=== PATIENT | female | born 1970 | race Caucasian/White ===

== ENCOUNTER 2019-02-27 18:06 | Emergency (ER) | payer BC ==
--- OUTSIDE RECORDS SUMMARY | 2019-02-27 18:08 | XMS REPORT ---
:1970 [facility] Address [address] [place] [address] Dr. [address]o [address] [place] [address] Care Team Providers Name Role Phone Unavailable Unavailable Unavailable Problems This patient has no known problems. Allergies, Adverse Reactions, Alerts This patient has no known allergies or adverse reactions. Medications This patient has no known medications. Results Test Description Test Time Test Comments Text Results Atomic Results Result Comments SCR MAMM BILATERAL SUGEY 2019-01-02 16:28:53 - SCR MAMM BILATERAL SUGEY CAD CAD DIGITAL DIGITALBILATERAL DIGITAL SCREENING MAMMOGRAM 3D/2D WITH CAD: 12/22/2018CLINICAL: Asymptomatic. Digital breast tomosynthesis was performed in addition to routine CC and MLO views. Current mammographic images were evaluated by either a [employer] M-Vu or a [employer] ImageChecker CAD (computer aided detection system). No prior exams were available for comparison. There are scattered fibroglandular tissues in both breasts. No suspicious mass, architectural distortion, malignant type calcification, or lymph node abnormality detected. IMPRESSION: NEGATIVEThere is no mammographic evidence of malignancy. Resume annual screening mammography in one year. Lynette ramos/penrad:01/02/2019 16:28:53 Entry: - 01/03/2019 14:15:14Imaging Technologist: Kayla Calderon MM, [facility] Mammographyletter sent: BIRADS 1-2 Normal Mammogram BI-RADS: 1 Negative
--- NOTE | 2019-02-27 19:57 | RAD REPORT ---
EXAM DESCRIPTION: CT - Head Brain Wo Cont - 02/27/2019 7:51 pm CLINICAL HISTORY: head injury Trauma, fall, head injury COMPARISON: Head Brain Wo Cont dated 07/18/2016; Head Brain Wo Cont dated 06/29/2016 TECHNIQUE: All CT scans are performed using dose optimization technique as appropriate and may inclu de automated exposure control or mA/KV adjustment according to patient size. FINDINGS: No intracranial hemorrhage, hydrocephalus or extra-axial fluid collection.No areas of brai n edema or evidence of midline shift. The paranasal sinuses and mastoids are clear. The calvarium is intact. IMPRESSION: No acute intracranial abnormality.
[2019-02-27 20:32] LABS: Absolute Lymphocytes (CBC) 1.7 K/uL (0.7-4.9); Absolute Monocytes 0.5 K/uL (0.1-1.3); Absolute Neutrophil 4.6 K/uL (1.8-8.0); Basophils % 0.5 % (0-1.3); Hematocrit 42.9 % (36.0-45.0); Lymphocytes % 24.6 % (15.3-44.8); MPV 9.7 fL (7.6-11.3); Monocytes % 7.1 % (3.3-12.3); RBC Red Blood Cell Count 5.46 M/uL (3.86-4.86)
[2019-02-27 20:47] LABS: ALT/SGPT 41 U/L (12-78); AST/SGOT 22 U/L (15-37); Alkaline Phosphatase 109 U/L (45-117); BUN Blood Urea Nitrogen 8 mg/dL (7-18); Bicarbonate 27 mmol/L (21-32); Bilirubin Direct < 0.1 mg/dL (0-0.2); Bilirubin Total 0.3 mg/dL (0.2-1.0); CKMB Creatine Kinase MB < 1.0 ng/mL (0.3-3.6); Creatine Phosphokinase 117 U/L (26-192); Glucose Level 88 mg/dL (74-106); Lipase 138 U/L (73-393); Magnesium 2.1 mg/dL (1.8-2.4); Protein, Total 8.4 g/dL (6.4-8.2); Sodium Level 139 mmol/L (136-145); Troponin (Emerg Dept Use Only) < 0.02 ng/mL (0.0-0.045)
[2019-02-27 21:01] LABS: Urine Blood NEGATIVE (NEG); Urine Glucose NEGATIVE (NEG); Urine Protein NEGATIVE (NEG); Urine pH 5.5 (5.0-7.0)
[2019-02-27] MEDS ORDERED: KETOROLAC 30 MG/ML INJ ONE (21:03)
[2019-02-27 21:05] LABS: Protime INR 0.93
--- NOTE | 2019-02-27 22:43 | ER ---
Nurse's Notes [facility] Name: Tabitha Gutierres Age: 48 yrs Sex: Female : 1970 Arrival Date: 02/27/2019 Time: 18:09 Bed 17 Private MD: Radha Collins H Diagnosis: Vasovagal syncope Presentation: 02/27 18:16 Presenting complaint: Patient states: fall about an hour ago onto carpet and tile, sv unsure of why she fell. c/o right arm/leg pain, right fingers tingling, chest pain after fall happened. Care prior to arrival: None. Mechanism of Injury: Fall from standing position. Trauma event details: Injury occurred in the [facility], Injury occurred: at home. Injury occurred: February 27, 2019 Injury occurred at: 17:45. 18:16 Acuity: ESTELLA 3 sv 18:16 Method Of Arrival: Ambulatory sv 19:00 Transition of care: patient was not received from another setting of care. Onset of jb4 symptoms was February 27, 2019. Risk Assessment: Do you want to hurt yourself or someone else?. Initial Sepsis Screen: Does the patient meet any 2 criteria? No. Patient's initial sepsis screen is negative. Does the patient have a suspected source of infection? No. Patient's initial sepsis screen is negative. Trauma Activation: Not Applicable Physician: ED Physician; Name: ; Notified At: ; Arrived At: Physician: General Surgeon; Name: ; Notified At: ; Arrived At: Physician: Radiology; Name: ; Notified At: ; Arrived At: Physician: Respiratory; Name: ; Notified At: ; Arrived At: Physician: Lab; Name: ; Notified At: ; Arrived At: Historical: - Allergies: 18:18 PENICILLINS; sv - PMHx: 18:18 Multiple Sclerosis; sv - PSHx: 18:18 Tubal ligation; tubal reversal; sv - Ebola Screening: : No symptoms or risks identified at this time. Screenin:00 Abuse screen: Denies threats or abuse. Nutritional screening: No deficits noted. jb4 Tuberculosis screening: No symptoms or risk factors identified. Fall Risk None identified. Primary Survey: 19:19 NO uncontrolled hemorrhage observed. A: The patient is alert. Airway: patent, No ph supplemental oxygen in use on arrival. Oral cavity: clear, Trachea midline. Breathing/Chest: Respiratory pattern: regular, Respiratory effort: spontaneous, unlabored. Circulation: Skin color: pink, Skin temperature: warm, dry. Disability Alert. Exposure/Environment: All clothing and personal items were removed. Forensic evidence collection is not deemed to be indicated at this time. Items placed in patient belonging bag. There is no evidence of uncontrolled external bleeding. 20:00 Reassessment Airway Airway Patent Breathing/Chest Respiratory pattern Regular jb4 Respiratory effort Spontaneous Unlabored Circulation Heart rhythm Sinus rhythm. Secondary Survey: 19:21 HEENT: No deficits noted. Musculoskeletal: Circulation, motion, and sensation intact. ph Range of motion: intact in all extremities, Reports pain in R shoulder, R arm, R flank amd R inner thigh. Assessment: 19:16 General: Appears in no apparent distress. uncomfortable, obese, well groomed, Behavior ph is calm, cooperative, appropriate for age. Pain: Complains of pain in right shoulder, right arm, right inner thigh, and right flank. Neuro: Level of Consciousness is awake, alert, obeys commands, Oriented to person, place, time, situation, Denies dizziness, headache frontal area. Cardiovascular: Capillary refill < 3 seconds in bilateral fingers Patient's skin is warm and dry. Respiratory: Airway is patent Respiratory effort is even, unlabored, Respiratory pattern is regular, symmetrical, Denies shortness of breath. GI: Patient currently denies abdominal pain, nausea, vomiting. Derm: Skin is intact, is healthy with good turgor, Skin is pink, warm \T\ dry. Musculoskeletal: Circulation, motion, and sensation intact. Range of motion: intact in all extremities. 20:00 Reassessment: Patient appears in no apparent distress at this time. Patient and/or jb4 family updated on plan of care and expected duration. Pain level reassessed. Patient is alert, oriented x 3, equal unlabored respirations, skin warm/dry/pink. 21:00 Reassessment: Patient appears in no apparent distress at this time. Patient and/or jb4 family updated on plan of care and expected duration. Pain level reassessed. Patient is alert, oriented x 3, equal unlabored respirations, skin warm/dry/pink. 22:00 Reassessment: Patient appears in no apparent distress at this time. Patient and/or jb4 family updated on plan of care and expected duration. Pain level reassessed. Patient is alert, oriented x 3, equal unlabored respirations, skin warm/dry/pink. 23:00 Reassessment: Patient appears in no apparent distress at this time. Patient and/or jb4 family updated on plan of care and expected duration. Pain level reassessed. Patient is alert, oriented x 3, equal unlabored respirations, skin warm/dry/pink. Vital Signs: 18:18 BP 155 / 89; Pulse 76; Resp 18; Temp 98; Pulse Ox 100% ; Weight 119.75 kg; Height 5 ft. sv 1 in. (154.94 cm); Pain 7/10; 20:28 BP 116 / 87; Pulse 74; Resp 18; Pulse Ox 96% on R/A; mw2 21:00 BP 147 / 73; Pulse 74; Resp 16; Pulse Ox 100% on R/A; jb4 22:10 BP 154 / 95; Pulse 67; Resp 18; Pulse Ox 100% on R/A; jb4 23:00 BP 134 / 84; Pulse 66; Resp 16; Pulse Ox 100% on R/A; jb4 18:18 Body Mass Index 49.88 (119.75 kg, 154.94 cm) sv Filion Coma Score: 19:22 Eye Response: spontaneous(4). Verbal Response: oriented(5). Motor Response: obeys ph commands(6). Total: 15. 20:20 Eye Response: spontaneous(4). Verbal Response: oriented(5). Motor Response: obeys jb4 commands(6). Total: 15. 21:00 Eye Response: spontaneous(4). Verbal Response: oriented(5). Motor Response: obeys jb4 commands(6). Total: 15. 22:10 Eye Response: spontaneous(4). Verbal Response: oriented(5). Motor Response: obeys jb4 commands(6). Total: 15. 23:00 Eye Response: spontaneous(4). Verbal Response: oriented(5). Motor Response: obeys jb4 commands(6). Total: 15. Trauma Score (Adult): 19:22 Eye Response: spontaneous(1); Verbal Response: oriented(1); Motor Response: obeys ph commands(2); Systolic BP: > 89 mm Hg(4); Respiratory Rate: 10 to 29 per min(4); Rhea Score: 15; Trauma Score: 12 20:20 Eye Response: spontaneous(1); Verbal Response: oriented(1); Motor Response: obeys jb4 commands(2); Systolic BP: > 89 mm Hg(4); Respiratory Rate: 10 to 29 per min(4); Filion Score: 15; Trauma Score: 12 21:00 Eye Response: spontaneous(1); Verbal Response: oriented(1); Motor Response: obeys jb4 commands(2); Systolic BP: > 89 mm Hg(4); Respiratory Rate: 10 to 29 per min(4); Filion Score: 15; Trauma Score: 12 22:10 Eye Response: spontaneous(1); Verbal Response: oriented(1); Motor Response: obeys jb4 commands(2); Systolic BP: > 89 mm Hg(4); Respiratory Rate: 10 to 29 per min(4); Filion Score: 15; Trauma Score: 12 23:00 Eye Response: spontaneous(1); Verbal Response: oriented(1); Motor Response: obeys jb4 commands(2); Systolic BP: > 89 mm Hg(4); Respiratory Rate: 10 to 29 per min(4); Filion Score: 15; Trauma Score: 12 ED Course: 18:09 Patient arrived in ED. mr 18:09 Radha Collins DO is Private Physician. mr 18:17 Triage completed. sv 18:18 Arm band placed on. sv 18:25 Cris Butterfield, RN is Primary Nurse. ph 19:00 Patient has correct armband on for positive identification. Bed in low position. Call jb4 light in reach. Side rails up X 1. lunchroom monitor on. Pulse ox on. NIBP on. 19:00 Patient maintains SpO2 saturation greater than 95% on room air. jb4 19:20 Luca Breen MD is Attending Physician. tw4 19:[address] via wheelchair. nj 19:50 CT completed. Patient tolerated procedure well. Patient moved back from CT. nj 19:51 CT Head Brain wo Cont In Process Unspecified. EDMS 20:06 Inserted saline lock: 22 gauge in left antecubital area, using aseptic technique. Blood mw2 collected. 22:40 Radha Collins DO is Referral Physician. tw4 23:15 No provider procedures requiring assistance completed. IV discontinued, intact, jb4 bleeding controlled. Administered Medications: 21:14 Drug: TORadol 30 mg Route: IVP; Site: left antecubital; jb4 23:17 Follow up: Response: No adverse reaction; Pain is decreased jb4 Intake: 19:22 PO: 0ml; Total: 0ml. ph Output: 19:22 Urine: 250ml (Voided); Total: 250ml. ph Outcome: 22:42 Discharge ordered by MD. tw4 23:15 Discharged to home ambulatory, with family. jb4 23:15 Condition: stable 23:15 Discharge instructions given to patient, family, Instructed on discharge instructions, follow up and referral plans. Demonstrated understanding of instructions, follow-up care. 23:16 Patient's length of stay in the Emergency Department was greater than 2 hours. Pt jb4 discharged homePatient's length of stay extended due to 23:20 Patient left the ED. jb4 Signatures: Dispatcher [employer] EDMS Dena Boyle RN RN sv Rivera, Cris Tate RN RN ph Bryson, James, RN RN jb4 Jordan, Nathan nj Wadley, Terrence, MD MD tw4 Betito Yu mw2 Corrections: (The following items were deleted from the chart) 18:19 18:16 Presenting complaint: Patient states: fall about an hour ago onto carpet and sv tile, unsure of why she fell. c/o right arm/leg pain, chest pain after fall happened. sv 23:18 22:31 Reassessment: jbAlvin jb4
--- NOTE | 2019-02-27 22:44 | EDPHYS ---
Physician Documentation [facility] Name: Tabitha Gutierres Age: 48 yrs Sex: Female : 1970 Arrival Date: 02/27/2019 Time: 18:09 Bed 17 Private MD: Radha Collins H ED Physician Luca Breen HPI: 02/27 19:35 This 48 yrs old Female presents to ER via Ambulatory with complaints of Fall tw4 Injury, Headache. 20:14 Details of fall: The patient fell from an upright position, while standing. Onset: The tw4 symptoms/episode began/occurred today. Associated injuries: The patient sustained no obvious injury. The patient has experienced syncope. Duration: This was a single episode. Context: occurred. Associated injury: The patient did not suffer any apparent associated injury. Associated signs and symptoms: The patient has no apparent associated signs or symptoms. Historical: - Allergies: 18:18 PENICILLINS; sv - PMHx: 18:18 Multiple Sclerosis; sv - PSHx: 18:18 Tubal ligation; tubal reversal; sv - Ebola Screening: : No symptoms or risks identified at this time. ROS: 20:14 Constitutional: Negative for fever, chills, and weight loss, Eyes: Negative for injury, tw4 pain, redness, and discharge, ENT: Negative for injury, pain, and discharge, Cardiovascular: Negative for chest pain, palpitations, and edema, Respiratory: Negative for shortness of breath, cough, wheezing, and pleuritic chest pain, Abdomen/GI: Negative for abdominal pain, nausea, vomiting, diarrhea, and constipation, Back: Negative for injury and pain, MS/Extremity: Negative for injury and deformity. Exam: 22:40 Constitutional: This is a well developed, well nourished patient who is awake, alert, tw4 and in no acute distress. Head/Face: Normocephalic, atraumatic. Chest/axilla: Normal chest wall appearance and motion. Nontender with no deformity. No lesions are appreciated. Cardiovascular: Regular rate and rhythm with a normal S1 and S2. No gallops, murmurs, or rubs. Normal PMI, no JVD. No pulse deficits. Respiratory: Lungs have equal breath sounds bilaterally, clear to auscultation and percussion. No rales, rhonchi or wheezes noted. No increased work of breathing, no retractions or nasal flaring. Abdomen/GI: Soft, non-tender, with normal bowel sounds. No distension or tympany. No guarding or rebound. No evidence of tenderness throughout. Back: No spinal tenderness. No costovertebral tenderness. Full range of motion. MS/ Extremity: Pulses equal, no cyanosis. Neurovascular intact. Full, normal range of motion. Neuro: Awake and alert, GCS 15, oriented to person, place, time, and situation. Cranial nerves II-XII grossly intact. Motor strength 5/5 in all extremities. Sensory grossly intact. Cerebellar exam normal. Normal gait. Vital Signs: 18:18 BP 155 / 89; Pulse 76; Resp 18; Temp 98; Pulse Ox 100% ; Weight 119.75 kg; Height 5 ft. sv 1 in. (154.94 cm); Pain 7/10; 20:28 BP 116 / 87; Pulse 74; Resp 18; Pulse Ox 96% on R/A; mw2 21:00 BP 147 / 73; Pulse 74; Resp 16; Pulse Ox 100% on R/A; jb4 22:10 BP 154 / 95; Pulse 67; Resp 18; Pulse Ox 100% on R/A; jb4 23:00 BP 134 / 84; Pulse 66; Resp 16; Pulse Ox 100% on R/A; jb4 18:18 Body Mass Index 49.88 (119.75 kg, 154.94 cm) sv Rhea Coma Score: 19:22 Eye Response: spontaneous(4). Verbal Response: oriented(5). Motor Response: obeys ph commands(6). Total: 15. 20:20 Eye Response: spontaneous(4). Verbal Response: oriented(5). Motor Response: obeys jb4 commands(6). Total: 15. 21:00 Eye Response: spontaneous(4). Verbal Response: oriented(5). Motor Response: obeys jb4 commands(6). Total: 15. 22:10 Eye Response: spontaneous(4). Verbal Response: oriented(5). Motor Response: obeys jb4 commands(6). Total: 15. 23:00 Eye Response: spontaneous(4). Verbal Response: oriented(5). Motor Response: obeys jb4 commands(6). Total: 15. Trauma Score (Adult): 19:22 Eye Response: spontaneous(1); Verbal Response: oriented(1); Motor Response: obeys ph commands(2); Systolic BP: > 89 mm Hg(4); Respiratory Rate: 10 to 29 per min(4); [place] Score: 15; Trauma Score: 12 20:20 Eye Response: spontaneous(1); Verbal Response: oriented(1); Motor Response: obeys jb4 commands(2); Systolic BP: > 89 mm Hg(4); Respiratory Rate: 10 to 29 per min(4); [place] Score: 15; Trauma Score: 12 21:00 Eye Response: spontaneous(1); Verbal Response: oriented(1); Motor Response: obeys jb4 commands(2); Systolic BP: > 89 mm Hg(4); Respiratory Rate: 10 to 29 per min(4); Rhea Score: 15; Trauma Score: 12 22:10 Eye Response: spontaneous(1); Verbal Response: oriented(1); Motor Response: obeys jb4 commands(2); Systolic BP: > 89 mm Hg(4); Respiratory Rate: 10 to 29 per min(4); Rhea Score: 15; Trauma Score: 12 23:00 Eye Response: spontaneous(1); Verbal Response: oriented(1); Motor Response: obeys jb4 commands(2); Systolic BP: > 89 mm Hg(4); Respiratory Rate: 10 to 29 per min(4); Rhea Score: 15; Trauma Score: 12 MDM: 19:21 Patient medically screened. tw4 22:39 Differential diagnosis: closed head injury, contusion, emotional response, idiopathic tw4 syncope, vasovagal episode. Data reviewed: vital signs, nurses notes. Data interpreted: cold header:. Test interpretation: by ED physician or midlevel provider: ECG. Counseling: I had a detailed discussion with the patient and/or guardian regarding: the historical points, exam findings, and any diagnostic results supporting the discharge/admit diagnosis. Special discussion: I discussed with the patient/guardian in detail that at this point there is no indication for admission to the hospital. It is understood, however, that if the symptoms persist or worsen the patient needs to return immediately for re-evaluation. 02/27 19:34 Order name: Basic Metabolic Panel; Complete Time: 21:41 tw4 02/27 19:34 Order name: CBC with Diff; Complete Time: 21:41 02/27 21:41 Interpretation: Normal except: MCH 25.7; RBC 5.46; MCV 78.5. 02/27 19:34 Order name: Ckmb; Complete Time: 21:41 02/27 21:41 Interpretation: Within normal limits: CKMB < 1.0. 02/27 19:34 Order name: CPK 02/27 19:34 Order name: Hepatic Function; Complete [facility]: 21:41 [facility] 02/[facility] 21:41 Interpretation: Normal except: TP 8.4; GLOB 4.4; A/G 0.9. 02/27 19:34 Order name: Lipase 02/27 19:27 Order name: CT Head Brain wo Cont; Complete Time: 21:41 02/27 19:34 Order name: Magnesium [facility] 02/27 19:34 Order name: Protime (+inr) 02/27 19:34 Order name: Ptt, Activated 02/27 19:34 Order name: Troponin (emerg Dept Use Only) [facility] 02/27 19:34 Order name: EKG; Complete Time: 19:34 02/27 20:39 Order name: Urine Dipstick--Ancillary (enter results) la 02/27 19:34 Order name: Cardiac monitoring; Complete Time: 20:27 02/27 19:34 Order name: EKG - Nurse/Tech; Complete Time: 20:27 [facility] 02/27 19:34 Order name: IV Saline Lock; Complete Time: 20:28 02/27 19:34 Order name: Labs collected and sent; Complete Time: 20:28 02/27 19:34 Order name: NPO; Complete Time: 20:28 02/27 19:34 Order name: O2 Per Protocol; Complete Time: 20:28 02/27 19:34 Order name: O2 Sat Monitoring; Complete Time: 20:28 02/27 19:34 Order name: Urine Dipstick-Ancillary (obtain specimen); Complete Time: 20:28 tw4 Administered Medications: 21:14 Drug: TORadol 30 mg Route: IVP; Site: left antecubital; jb4 23:17 Follow up: Response: No adverse reaction; Pain is decreased jb4 Disposition: 02/27/19 22:42 Discharged to Home. Impression: Vasovagal syncope. - Condition is Stable. - Discharge Instructions: Head Injury, Adult, [id number]-[id number]-Swax, Vasovagal Syncope, Adult. - Medication Reconciliation Form, Thank You Letter, Antibiotic Education, Prescription Opioid Use form. - Follow up: Radha Collins DO; When: Upon discharge from the Emergency Department; Reason: If symptoms return, Recheck today's complaints, Continuance of care. - Problem is new. - Symptoms have improved. Signatures: Dispatcher [employer] EDMS Dena Boyle RN RN Harvey Fatima RN RN jb4 Luca Breen MD MD tw4 Corrections: (The following items were deleted from the chart) 23:20 22:42 02/27/2019 22:42 Discharged to Home. Impression: Vasovagal syncope. Condition is jb4 Stable. Forms are Medication Reconciliation Form, Thank You Letter, Antibiotic Education, Prescription Opioid Use. Follow up: Radha Collins; When: Upon discharge from the Emergency Department; Reason: If symptoms return, Recheck today's complaints, Continuance of care. Problem is new. Symptoms have improved. tw4
[2019-02-27 23:35] VITALS: TEMP 98
[2019-02-27 23:52] VITALS: BP 116/87; O2SAT 96
== END 2019-02-27 23:20 | disposition home or self-care (01) ==
LOC: ER 18:06
DX: R55 Syncope and collapse (principal); G35 Multiple sclerosis; Z88.0 Allergy status to penicillin
CPT/HCPCS: 36415; 70450; 80048; 80076; 81003; 82550; 82553; 83690; 83735; 84484; 85025; 85610; 85730; 93005; 96374; 99285

== ENCOUNTER 2021-01-30 20:15 | Emergency (ER) | payer BC, SELFPAY ==
--- OUTSIDE RECORDS SUMMARY | 2021-01-30 20:18 | XMS REPORT | Continuity of Care Document ---
:1970 Author Organization [facility] t Address [address] [place] [address] Dr. [address] [place] [address] Care Team Providers Name Role Phone Martin MCGUIRE Attending Clinician Problems This patient has no known problems. Allergies, Adverse Reactions, Alerts This patient has no known allergies or adverse reactions. Medications This patient has no known medications. Procedures This patient has no known procedures. Encounters Start End Encounter Admission Attending Care Care Encounter Source Date/Time Date/Time Type Type Clinicians Facility Department ID 2020-09-06 2020[facility]09-[facility] [id number] 09:49:00 12:37:00 [facility] [id number] [place] [id number] [place] [id number] Results Test Description Test Time Test Comments Results Result [facility] e Comments SCR MAMM 2019-01-02 - SCR MAMM BILATERAL BILATERAL SUGEY 16:28:53 SUGEY CAD CAD DIGITAL DIGITALBILATERAL DIGITAL SCREENING MAMMOGRAM 3D/2D WITH CAD: 12/22/2018CLINICAL: Asymptomatic. Digital breast tomosynthesis was performed in addition to routine CC and MLO views. Current mammographic images were evaluated by either a [employer] M-Vu or a [employer] ImageChecker CAD (computer aided detection system). No prior exams were available for comparison. There are scattered fibroglandular tissues in both breasts. No suspicious mass, architectural distortion, malignant type calcification, or lymph node abnormality detected. IMPRESSION: NEGATIVEThere is no mammographic evidence of malignancy. Resume annual screening mammography in one year. Lynette ramos/ryan:01/02/2019 16:28:53 Entry: cc - 01/03/2019 14:15:14Imaging Technologist: Kayla Calderon MM, [facility] Mammographyletter sent: BIRADS 1-2 Normal Mammogram BI-RADS: 1 Negative
[2021-01-30 22:58] LABS: Absolute Lymphocytes (CBC) 1.6 K/uL (0.7-4.9); Basophils % 0.3 % (0-1.3); Hematocrit 42.3 % (36.0-45.0); Lymphocytes % 23.3 % (15.3-44.8); MPV 9.1 fL (7.6-11.3); RBC Red Blood Cell Count 5.42 M/uL (3.86-4.86)
[2021-01-30] MEDS ORDERED: ONDANSETRON 4 MG/2 ML VIAL ONE (23:00)
[2021-01-30] MEDS ORDERED: NA CHLORIDE 0.9% 1,000 ML ONE (23:00)
[2021-01-30] MEDS ORDERED: FAMOTIDINE 20 MG/2 ML VIAL IV ONE (23:01)
[2021-01-30 23:19] LABS: ALT/SGPT 58 U/L (12-78); AST/SGOT 30 U/L (15-37); Albumin 4.2 g/dL (3.4-5.0); Alkaline Phosphatase 122 U/L (45-117); BUN Blood Urea Nitrogen 6 mg/dL (7-18); Bicarbonate 27 mmol/L (21-32); Bilirubin Direct 0.1 mg/dL (0-0.2); Bilirubin Total 0.4 mg/dL (0.2-1.0); Glucose Level 91 mg/dL (74-106); Magnesium 2.3 mg/dL (1.8-2.4); Potassium 3.8 mmol/L (3.5-5.1); Protein, Total 8.6 g/dL (6.4-8.2); Sodium Level 141 mmol/L (136-145); Troponin (Emerg Dept Use Only) < 0.02 ng/mL (0.0-0.045)
[2021-01-31 00:07] LABS: Urine Bacteria >50 /HPF (<20); Urine Mucus 1+ /HPF (NONE SEEN); Urine Yeast FEW (NONE SEEN)
[2021-01-31 00:48] LABS: Urine Blood 2+ (NEG); Urine Glucose NEGATIVE (NEG); Urine Protein NEGATIVE (NEG); Urine Specific Gravity 1.025 (1.005-1.030)
[2021-01-31] MEDS ORDERED: METHYLPREDNISOLONE 125 MG INJ ONE (01:32)
--- NOTE | 2021-01-31 02:30 | ER ---
Nurse's Notes [facility] Name: Tabitha Gutierres Age: 50 yrs Sex: Female : 1970 Arrival Date: 01/30/2021 Time: 20:18 Bed 19 Private MD: Diagnosis: Nausea;Diarrhea, unspecified Presentation: 01/30 20:38 Chief complaint: Patient states: Had covid vaccine Wednesday. Started having fever that ll1 night. Diarrhea is yellow in color with coffee grounds look to it. + fatigue. States she has MS, a lot of her symptoms mimic a MS flare-up. Saw Dr. Iqbal yesterday. Given gabapentin and Solu-Medrol yesterday. Reports HR in the 120's today. Fever 101/7 at home. Coronavirus screen: Client denies travel out of the [place] in the last 14 days. At this time, the client does not indicate any symptoms associated with coronavirus-19. Ebola Screen: Patient denies travel to an Ebola-affected area in the 21 days before illness onset. Initial Sepsis Screen: Does the patient meet any 2 criteria? No. Patient's initial sepsis screen is negative. Does the patient have a suspected source of infection? No. Patient's initial sepsis screen is negative. Risk Assessment: Do you want to hurt yourself or someone else? Patient reports no desire to harm self or others. Onset of symptoms was January 26, 2021. 20:38 Method Of Arrival: Wheelchair ll1 20:38 Acuity: ESTELLA 3 ll1 Historical: - Allergies: 20:42 PENICILLINS; ll1 - PMHx: 20:42 Multiple Sclerosis; ll1 - PSHx: 20:42 Tubal ligation; tubal reversal; ll1 - Immunization history:: Flu vaccine is up to date. - Social history:: Smoking status: Patient denies any tobacco usage or history of. Screenin:09 Abuse screen: Denies threats or abuse. Nutritional screening: No deficits noted. jb4 Tuberculosis screening: No symptoms or risk factors identified. Fall Risk None identified. Assessment: 21:09 General: Appears in no apparent distress. comfortable, Behavior is calm, cooperative, jb4 appropriate for age. Pain: Complains of pain in abdomen Pain does not radiate. Pain currently is 8 out of 10 on a pain scale. Neuro: Level of Consciousness is awake, alert, obeys commands, Oriented to person, place, time, situation. Cardiovascular: Patient's skin is warm and dry. Respiratory: Airway is patent Respiratory effort is even, unlabored, Respiratory pattern is regular, symmetrical. GI: No signs and/or symptoms were reported involving the gastrointestinal system. : No signs and/or symptoms were reported regarding the genitourinary system. EENT: No signs and/or symptoms were reported regarding the EENT system. Derm: Skin is intact, Skin is pink, warm \T\ dry. Musculoskeletal: Circulation, motion, and sensation intact. Range of motion: intact in all extremities. 22:00 Reassessment: Patient appears in no apparent distress at this time. Patient and/or jb4 family updated on plan of care and expected duration. Pain level reassessed. Patient is alert, oriented x 3, equal unlabored respirations, skin warm/dry/pink. 23:00 Reassessment: Patient appears in no apparent distress at this time. Patient and/or jb4 family updated on plan of care and expected duration. Pain level reassessed. Patient is alert, oriented x 3, equal unlabored respirations, skin warm/dry/pink. 01/31 00:00 Reassessment: Patient appears in no apparent distress at this time. Patient and/or jb4 family updated on plan of care and expected duration. Pain level reassessed. Patient is alert, oriented x 3, equal unlabored respirations, skin warm/dry/pink. 00:44 Reassessment: Patient appears in no apparent distress at this time. Patient and/or jb4 family updated on plan of care and expected duration. Pain level reassessed. Patient is alert, oriented x 3, equal unlabored respirations, skin warm/dry/pink. 01:45 Reassessment: Patient appears in no apparent distress at this time. Patient and/or jb4 family updated on plan of care and expected duration. Pain level reassessed. Patient is alert, oriented x 3, equal unlabored respirations, skin warm/dry/pink. 02:45 Reassessment: Patient appears in no apparent distress at this time. Patient and/or jb4 family updated on plan of care and expected duration. Pain level reassessed. Patient is alert, oriented x 3, equal unlabored respirations, skin warm/dry/pink. Vital Signs: 01/30 20:38 BP 143 / 113; Pulse 80; Resp 17; Temp 98.6; Pulse Ox 98% ; Weight 122.47 kg; Height 5 ll1 ft. 1 in. (154.94 cm); Pain 8/10; 21:10 BP 144 / 83; Pulse 60; Resp 16; Pulse Ox 100% on R/A; jb4 21:38 BP 132 / 82 LA Supine (auto/lg); Pulse 72; Resp 18; Pulse Ox 98% on R/A; jb4 21:40 BP 145 / 97 RA Sitting (auto/lg); Pulse 77; Resp 18; Pulse Ox 99% on R/A; jb4 21:42 BP 153 / 104 LA Standing (auto/lg); Pulse 102; Resp 18; Pulse Ox 99% on R/A; jb4 23:00 BP 132 / 54; Pulse 59; Resp 18; Pulse Ox 100% on R/A; jb4 01/31 00:15 BP 129 / 55; Pulse 66; Resp 16; Pulse Ox 100% on R/A; jb4 01:30 BP 163 / 72; Pulse 60; Resp 16; Pulse Ox 98% on R/A; jb4 02:30 BP 112 / 57; Pulse 62; Resp 16; Pulse Ox 96% on R/A; jb4 01/30 20:38 Body Mass Index 51.02 (122.47 kg, 154.94 cm) ll1 ED Course: 01/30 20:18 Patient arrived in ED. cl3 20:41 Triage completed. ll1 20:42 Arm band placed on Patient placed in an exam room, on a stretcher. ll1 20:45 Roque Oliveros PA is PHCP. cp 20:45 Roque Robison MD is Attending Physician. cp 21:03 Harvey Fatima, RN is Primary Nurse. jb4 21:09 Patient has correct armband on for positive identification. Bed in low position. Call jb4 light in reach. Side rails up X 1. Pulse ox on. NIBP on. 22:00 EKG done, by ED staff, reviewed by Roque SULLIVAN. jp3 22:05 XRAY Chest (1 view) In Process Unspecified. EDMS 22:20 Urine collected: clean catch specimen, clear, kira colored. jp3 22:20 Patient maintains SpO2 saturation greater than 95% on room air. jp3 22:25 First set of blood cultures drawn by me. Inserted saline lock: 20 gauge in right 3 antecubital area, using aseptic technique. Blood collected. 22:30 Initial lab(s) drawn, by me, sent to lab. jp3 22:35 Second set of blood cultures drawn by me. 3 01/31 01:22 CT Abd/Pelvis - IV Contrast Only In Process Unspecified. EDMS 02:46 No provider procedures requiring assistance completed. IV discontinued, intact, jb4 bleeding controlled, No redness/swelling at site. Pressure dressing applied. Administered Medications: 01/30 22:50 Drug: NS 0.9% 1000 ml Route: IV; Rate: 1 bolus; Site: right antecubital; jb4 01/31 02:00 Follow up: Response: No adverse reaction; IV Status: Completed infusion; IV Intake: jb4 1000ml 01/30 22:50 Drug: Pepcid 20 mg Route: IVP; Site: right antecubital; jb4 23:20 Follow up: Response: No adverse reaction jb4 22:51 Drug: Zofran (Ondansetron) 4 mg Route: IVP; Site: right antecubital; jb4 23:20 Follow up: Response: No adverse reaction; Marked relief of symptoms jb4 01/31 01:20 Drug: SOLU-Medrol 125 mg Route: IVP; Site: right antecubital; jb4 01:50 Follow up: Response: No adverse reaction jb4 Intake: 02:00 IV: 1000ml; Total: 1000ml. jb4 Outcome: 02:29 Discharge ordered by . laura 02:46 Discharged to home ambulatory. jb4 02:46 Condition: stable 02:46 Discharge instructions given to patient, Instructed on discharge instructions, follow up and referral plans. medication usage, Demonstrated understanding of instructions, follow-up care, medications, Prescriptions given X 1. 02:47 Patient left the ED. jb4 Signatures: Dispatcher [employer] EDCO Roque Oliveros PA PA cp Bryson, James, RN RN jb4 Georgi Dueñas jp3 Aj Gonzalez3 Alirio Gonzalez RN RN ll1
--- NOTE | 2021-01-31 02:30 | EDPHYS ---
Physician Documentation [facility] Name: Tabitha Gutierres Age: 50 yrs Sex: Female : 1970 Arrival Date: 01/30/2021 Time: 20:18 Bed 19 Private MD: ED Physician Roque Robison HPI: 01/30 21:40 This 50 yrs old Female presents to ER via Wheelchair with complaints of Heart cp Racing, Chills. 21:40 The patient presents with a history of heart racing. cp 21:40 Context: The symptoms occur at rest. Onset: The symptoms/episode began/occurred today. cp Duration: The patient or guardian reports multiple episodes, that are intermittent. 21:40 Patient reports having COVID vaccination 5 days ago with fevers later that evening. cp Patient reports general weakness, diarrhea, nausea since vaccination. Patient with history of MS, saw neurologist yesterday who prescribed oral steroids. Symptoms became worse today so she waited for to return from work to bring her to emergency department. Historical: - Allergies: 20:42 PENICILLINS; ll1 - PMHx: 20:42 Multiple Sclerosis; ll1 - PSHx: 20:42 Tubal ligation; tubal reversal; ll1 - Immunization history:: Flu vaccine is up to date. - Social history:: Smoking status: Patient denies any tobacco usage or history of. ROS: 21:45 Constitutional: Positive for chills, poor PO intake, Negative for fever. cp 21:45 Eyes: Negative for injury, pain, redness, and discharge. cp 21:45 ENT: Negative for ear pain, sore throat, difficulty swallowing, difficulty handling secretions. 21:45 Cardiovascular: Positive for palpitations, Negative for chest pain, edema. 21:45 Respiratory: Positive for cough, Negative for shortness of breath, wheezing. 21:45 Abdomen/GI: Positive for abdominal pain, nausea, diarrhea, Negative for constipation. 21:45 : Negative for urinary symptoms. 21:45 Neuro: Positive for general weakness, Negative for altered mental status. 21:45 All other systems are negative. Exam: 21:50 Constitutional: The patient appears in no acute distress, alert, awake, non-toxic, well cp developed, well nourished, obese. 21:50 Head/Face: Normocephalic, atraumatic. cp 21:50 Eyes: Periorbital structures: appear normal, Conjunctiva: normal, no exudate, no injection, Sclera: no appreciated abnormality, Lids and lashes: appear normal, bilaterally. 21:50 ENT: External ear(s): are unremarkable, Nose: is normal, Mouth: Lips: moist, Oral mucosa: moist, Posterior pharynx: Airway: no evidence of obstruction, patent. 21:50 Neck: ROM/movement: is normal, is supple, no meningismus, no nuchal rigidity. 21:50 Chest/axilla: Inspection: normal, Palpation: is normal, no crepitus, no tenderness. 21:50 Cardiovascular: Rate: tachycardic, Rhythm: regular, Edema: is not appreciated, JVD: is not appreciated. 21:50 Respiratory: the patient does not display signs of respiratory distress, Respirations: normal, no use of accessory muscles, no retractions, labored breathing, is not present, Breath sounds: are clear throughout, no decreased breath sounds, no stridor, no wheezing. 21:50 Abdomen/GI: Inspection: abdomen appears normal, Bowel sounds: active, all quadrants, Palpation: soft, in all quadrants, mild abdominal tenderness, in the right upper quadrant and left upper quadrant, rebound tenderness, is not appreciated, voluntary guarding, is not appreciated, involuntary guarding, is not appreciated. 21:50 Back: CVA tenderness, is absent. 21:50 Skin: no rash present. 21:50 Neuro: Orientation: to person, place \T\ time. Mentation: is normal, Cerebellar function: is grossly normal, Motor: moves all fours, strength is normal, Sensation: no obvious gross deficits. 22:10 ECG was reviewed by the Attending Physician. cp Vital Signs: 20:38 BP 143 / 113; Pulse 80; Resp 17; Temp 98.6; Pulse Ox 98% ; Weight 122.47 kg; Height 5 ll1 ft. 1 in. (154.94 cm); Pain 8/10; 21:10 BP 144 / 83; Pulse 60; Resp 16; Pulse Ox 100% on R/A; jb4 21:38 BP 132 / 82 LA Supine (auto/lg); Pulse 72; Resp 18; Pulse Ox 98% on R/A; jb4 21:40 BP 145 / 97 RA Sitting (auto/lg); Pulse 77; Resp 18; Pulse Ox 99% on R/A; jb4 21:42 BP 153 / 104 LA Standing (auto/lg); Pulse 102; Resp 18; Pulse Ox 99% on R/A; jb4 23:00 BP 132 / 54; Pulse 59; Resp 18; Pulse Ox 100% on R/A; jb4 01/31 00:15 BP 129 / 55; Pulse 66; Resp 16; Pulse Ox 100% on R/A; jb4 01:30 BP 163 / 72; Pulse 60; Resp 16; Pulse Ox 98% on R/A; jb4 02:30 BP 112 / 57; Pulse 62; Resp 16; Pulse Ox 96% on R/A; jb4 01/30 20:38 Body Mass Index 51.02 (122.47 kg, 154.94 cm) ll1 MDM: 01/30 20:47 Patient medically screened. [facility] 01/31 02:28 Data reviewed: vital signs, nurses notes, lab test result(s), EKG, radiologic studies, cp CT scan, plain films. 02:28 Test interpretation: by ED physician or midlevel provider: ECG, plain radiologic cp studies. Counseling: I had a detailed discussion with the patient and/or guardian regarding: the historical points, exam findings, and any diagnostic results supporting the discharge/admit diagnosis, lab results, radiology results, to return to the emergency department if symptoms worsen or persist or if there are any questions or concerns that arise at home. Response to treatment: the patient's symptoms have markedly improved after treatment, patient is well hydrated. VSS. Nausea improved, patient tolerating po fluids. Will discharge to home for continued monitoring. 01/30 21:37 Order name: Basic Metabolic Panel cp 01/30 21:37 Order name: CBC with Diff cp 01/30 21:37 Order name: LFT's cp 01/30 21:37 Order name: Magnesium cp 01/30 21:37 Order name: Troponin (emerg Dept Use Only) cp 01/30 21:37 Order name: Procalcitonin cp 01/30 21:37 Order name: Lactate cp 01/30 21:37 Order name: Blood Culture Adult (2) cp 01/30 21:37 Order name: Urine Microscopic Only; Complete Time: 00:44 cp 01/31 00:44 Interpretation: Normal except: UWBC 5-10; URBC 5-10; UBACT >50; SQEPI 10-20. cp 01/30 21:37 Order name: Basic Metabolic Panel; Complete Time: 23:48 EDMS 01/30 23:48 Interpretation: Normal except: BUN 6; GFR 88. cp 01/30 21:37 Order name: CBC with Automated Diff; Complete Time: 23:48 EDMS 01/30 23:48 Interpretation: Normal except: RBC 5.42; MCV 78.1; MCH 26.4; RDW 15.8. cp 01/30 21:37 Order name: Liver (Hepatic) Function; Complete Time: 23:48 EDMS 01/30 23:48 Interpretation: Normal except: ALK 122; TP 8.6; GLOB 4.4; A/G 1.0. cp 01/30 21:37 Order name: Magnesium; Complete Time: 23:48 EDMS 01/30 21:37 Order name: Troponin (Emerg Dept Use Only); Complete Time: 23:48 EDMS 01/30 21:37 Order name: Orthostatics; Complete Time: 21:48 cp 01/30 21:37 Order name: XRAY Chest (1 view); Complete Time: 01:51 cp 01/30 21:37 Order name: EKG; Complete Time: 21:38 cp 01/30 21:37 Order name: Cardiac monitoring; Complete Time: 22:53 cp 01/30 21:37 Order name: EKG - Nurse/Tech; Complete Time: 22:53 cp 01/30 21:37 Order name: IV Saline Lock; Complete Time: 22:53 cp 01/30 21:37 Order name: Procalcitonin; Complete Time: 00:44 EDMS 01/30 21:37 Order name: Lactate; Complete Time: 23:48 EDMS 01/30 22:50 Order name: Urine --Ancillary (enter results); Complete Time: 00:51 tt3 01/30 22:50 Order name: Urine Dipstick--Ancillary (enter results); Complete Time: 00:51 tt3 01/31 00:51 Interpretation: Normal except: UKET 1+; UBLD 2+. cp 01/31 00:07 Order name: CT Abd/Pelvis - IV Contrast Only cp 01/31 00:12 Order name: Urine Culture EDMS 01/30 21:37 Order name: Labs collected and sent; Complete Time: 22:53 cp 01/30 21:37 Order name: O2 Per Protocol; Complete Time: 22:53 cp 01/30 21:37 Order name: O2 Sat Monitoring; Complete Time: 22:53 cp 01/30 21:37 Order name: Urine Dipstick-Ancillary (obtain specimen); Complete Time: 22:53 cp 01/30 21:37 Order name: Urine Test (obtain specimen); Complete Time: 22:53 cp 01/31 00:52 Order name: PO challenge; Complete Time: 01:10 cp EC/04 22:10 Rate is 60 beats/min. Rhythm is regular. [place] interval is normal. QRS interval is normal. cp QT interval is normal. Interpreted by me. Reviewed by me. Administered Medications: 22:50 Drug: NS 0.9% 1000 ml Route: IV; Rate: 1 bolus; Site: right antecubital; [facility] 01/31 02:00 Follow up: Response: No adverse reaction; IV Status: Completed infusion; IV Intake: 4 1000ml 01/30 22:50 Drug: Pepcid 20 mg Route: IVP; Site: right antecubital; [facility] 23:20 Follow up: Response: No adverse reaction [facility] 22:51 Drug: Zofran (Ondansetron) 4 mg Route: IVP; Site: right antecubital; [facility] 23:20 Follow up: Response: No adverse reaction; Marked relief of symptoms [facility] 01/31 01:20 Drug: SOLU-Medrol 125 mg Route: IVP; Site: right antecubital; [facility] 01:50 Follow up: Response: No adverse reaction [facility] Disposition: 05:52 Co-signature as Attending Physician, Roque Robison MD I agree with the assessment and obinna plan of care. Disposition: 01/31/21 02:29 Discharged to Home. Impression: Nausea, Diarrhea, unspecified. - Condition is Stable. - Discharge Instructions: Food Choices to Help Relieve Diarrhea, Adult, Diarrhea, Adult, Nausea, Adult. - Prescriptions for Zofran 4 mg Oral Tablet - take 1 tablet by ORAL route every 12 hours As needed; 20 tablet. - Medication Reconciliation Form, Thank You Letter, Antibiotic Education, Prescription Opioid Use form. - Follow up: Private Physician; When: 1 - 2 days; Reason: Worsening of condition. - Problem is new. - Symptoms have improved. Signatures: Dispatcher [employer] EDRoque Grossman MD MD cha Page, Corey, PA PA cp Harvey Fatima, RN RN jb4 Alirio Gonzalez RN RN ll1 Corrections: (The following items were deleted from the chart) 02:47 02:29 01/31/2021 02:29 Discharged to Home. Impression: Nausea; Diarrhea, unspecified. jb4 Condition is Stable. Forms are Medication Reconciliation Form, Thank You Letter, Antibiotic Education, Prescription Opioid Use. Follow up: Private Physician; When: 1 - 2 days; Reason: Worsening of condition. Problem is new. Symptoms have improved. cp 02/01 01:55 01/30 21:45 Respiratory: Negative for cough, shortness of breath, wheezing, cp cp
[2021-01-31 03:12] VITALS: TEMP 98.6
[2021-01-31 03:22] VITALS: BP 112/57; O2SAT 96
--- NOTE | 2021-01-31 07:26 | RAD REPORT ---
EXAM DESCRIPTION: RAD - Chest Single View - 01/30/2021 10:05 pm CLINICAL HISTORY: COUGH, fever, diarrhea and fatigue COMPARISON: Two view chest January 03, 2020 TECHNIQUE: AP portable chest image was obtained 01/30/2021 10:05 pm . FINDINGS: Lungs are clear. Heart and vasculature are normal. No measurable pleural effusion and no p neumothorax. No acute bony abnormality seen. No acute aortic findings suspected. IMPRESSION: No acute cardiopulmonary process. No significant change from comparison study.
--- NOTE | 2021-01-31 10:26 | RAD REPORT ---
EXAM DESCRIPTION: CT - Abdomen Pelvis W Contrast - 01/31/2021 6:56 am CLINICAL HISTORY: Diarrhea COMPARISON: None. TECHNIQUE: CT ABDOMEN PELVIS WITH IV CONTRAST on 01/31/2021 12:07 AM PHARMACY TECHNOLOGIST This exam was performed according to our departmental dose-optimization program, which includes autom ated exposure control, adjustment of the mA and/or kV according to patient size and/or use of iterati ve reconstruction technique. FINDINGS: Lower lungs are clear. Abdomen: Liver is fatty in attenuation. There is no biliary dilatation. Gallbladder is normal in appe arance. The pancreas and spleen are normal in appearance. The adrenal glands and kidneys are unremark able. Abdominal aorta is normal in course and caliber without aneurysm. There is no free air. There is no r etroperitoneal adenopathy. Pelvis: There is no bowel obstruction. Urinary bladder is unremarkable. There is no free fluid. Appen eduard is not clearly seen. Uterus is normal in size. Skeleton: There are no acute osseous findings. No suspicious bony lesions. IMPRESSION: No acute inflammatory process. Electronically signed by: Matthew Ng MD 01/31/2021 2:18 AM PHARMACY TECHNOLOGIST Due to temporary technical issues with the PACS/Fluency reporting system, reports are being signed by the in house radiologist without review as a courtesy to ensure prompt reporting. The interpreting r adiologist is fully responsible for the content of the report.
== END 2021-01-31 02:47 | disposition home or self-care (01) ==
LOC: ER 20:15
DX: R19.7 Diarrhea, unspecified (principal); R00.2 Palpitations; Z88.0 Allergy status to penicillin
CPT/HCPCS: 36415; 71045; 74177; 80048; 80076; 81003; 81015; 81025; 83605; 83735; 84145; 84484; 85025; 87040; 87086; 87088; 93005; 96361; 96374; 96375; 99285; J2405; J2930; J7030; Q9967

== ENCOUNTER 2021-02-10 10:24 | Inpatient (IN) | payer SELFPAY ==
--- OUTSIDE RECORDS SUMMARY | 2021-02-10 10:27 | XMS REPORT | Continuity of Care Document ---
:1970 Author Organization [facility] t Address [address] [place] [address] Care Team Providers Name Role Phone Martin [...] Type Clinicians Facility Department ID 2020-09-06 2020-09-06 [facility] [id number] 09:49:00 12:37:00 [facility] [id number] [place] [id number] [place] [phone] [id number] Results Test Description Test Time Test Comments Results Result Sour e Comments SCR MAMM 2019-01-02 - SCR MAMM BILATERAL BILATERAL SUGEY 16:28:53 SUGEY CAD CAD DIGITAL DIGITALBILATERAL DIGITAL SCREENING MAMMOGRAM 3D/2D WITH CAD: 12/22/2018CLINICAL: Asymptomatic. Digital breast tomosynthesis was performed in addition to routine CC and MLO views. Current mammographic images were evaluated by either a [employer] M-Vu or a [employer] ImageChecker CAD (computer aided detection system). No prior exams were available for comparison. There are scattered fibroglandular tissues in both breasts. No suspicious mass, architectural distortion, malignant type calcification, or lymph node abnormality detected. IMPRESSION: NEGATIVEThere is no mammographic evidence of malignancy. Resume annual screening mammography in one year. Lynette ramos/ryan:01/02/2019 16:28:53 Entry: rachel - 01/03/2019 14:15:14Imaging Technologist: Kayla Calderon MM, [facility] Mammographyletter sent: BIRADS 1-2 Normal Mammogram BI-RADS: 1 Negative
[2021-02-10] MEDS ORDERED: NA CHLORIDE 0.9% 1,000 ML ONE (11:34)
[2021-02-10] MEDS ORDERED: FOLIC ACID 5 MG/ML VIAL ONE (11:35)
--- NOTE | 2021-02-10 12:07 | RAD REPORT ---
EXAM DESCRIPTION: MRI - Brain Wo Cont - 02/10/2021 11:37 am CLINICAL HISTORY: Dizziness;Numbness COMPARISON: MRI BRAIN W WO CONTRAST dated 07/24/2014 TECHNIQUE: Sagittal T1-weighted images were obtained along with axial PD, heavily T2-weighted and T2 -FLAIR images. Axial DWI and ADC mapping sequences were also obtained along with coronal heavily T2-w eighted images. FINDINGS: No intracranial hemorrhage, mass or acute infarction. There is no edema or shift of midlin e structures. No extra-axial fluid collections. Franklin-matter/white matter junction is preserved. Signa l voids are seen as a normal finding in the major intracranial vessels. No atrophy changes are presen t. Ventricles are normal. Patient has scattered areas of white matter signal abnormality. These are periventricular and subcort ical in location. Largest is a 10 millimeter focus adjacent to the trigone right lateral ventricle. C hronic ischemic changes atypical etiology for white matter disease. Patient is relatively D on for th is etiology. MS or other demyelinating process would be possible and can be correlated with clinical findings and history. Vasculitis and migraine headache etiologies are possible. Brainstem, thalamus a nd basal ganglia tissues are spared any signal abnormality. Mastoid air cells and paranasal sinuses are clear. IMPRESSION: No acute infarction changes are identifiable. No mass, hemorrhage or acute intracranial finding. Cerebral white matter signal abnormalities are present more prevalent in the right hemisphere. Larges t focus is 10 mm near the trigone right lateral ventricle. Chronic ischemic change is typical but the patient is young for this etiology. MS or other demyelinat ing process would be a consideration and needs correlation. Vasculitis and migraine headache etiologi es possible as well.
--- NOTE | 2021-02-10 12:17 | RAD REPORT ---
EXAM DESCRIPTION: RAD - Chest Single View - 02/10/2021 11:35 am CLINICAL HISTORY: COUGH COMPARISON: January 30 TECHNIQUE: AP portable chest image was obtained 02/10/2021 11:35 am . FINDINGS: Lung volumes are low accentuating the baseline interstitial pattern. No peripheral mass or consolidation. No significant failure or volume overload findings. Heart and vasculature are normal. No measurable pleural effusion and no pneumothorax. No acute bony abnormality seen. No acute aortic findings suspected. IMPRESSION: No acute cardiopulmonary process. No significant change from comparison study.
[2021-02-10 12:20] LABS: Absolute Lymphocytes (CBC) 2.1 K/uL (0.7-4.9); Basophils % 0.7 % (0-1.3); Hematocrit 39.9 % (36.0-45.0); Lymphocytes % 33.1 % (15.3-44.8); MPV 9.3 fL (7.6-11.3); RBC Red Blood Cell Count 5.09 M/uL (3.86-4.86)
[2021-02-10 12:25] LABS: Urine Blood NEGATIVE (NEG); Urine Glucose NEGATIVE (NEG); Urine Protein NEGATIVE (NEG)
[2021-02-10 12:30] LABS: Protime INR 0.97
[2021-02-10] MEDS ORDERED: METHYLPRED NA SUC 1,000 MG in NA CHLORIDE 0.9% 100 ML IV ONE (12:30)
[2021-02-10 12:41] LABS: ALT/SGPT 40 U/L (12-78); AST/SGOT 17 U/L (15-37); Albumin 3.6 g/dL (3.4-5.0); Alkaline Phosphatase 90 U/L (45-117); BUN Blood Urea Nitrogen 11 mg/dL (7-18); Bicarbonate 28 mmol/L (21-32); Bilirubin Direct < 0.1 mg/dL (0-0.2); Bilirubin Total 0.3 mg/dL (0.2-1.0); C-Reactive Protein 4.22 mg/L (<3.00); Glucose Level 105 mg/dL (74-106); Magnesium 2.1 mg/dL (1.8-2.4); NT PRO-BNP 193 pg/mL (<125); Potassium 3.8 mmol/L (3.5-5.1); Sodium Level 141 mmol/L (136-145); Troponin (Emerg Dept Use Only) < 0.02 ng/mL (0.0-0.045)
--- NOTE | 2021-02-10 13:10 | EDPHYS ---
Physician Documentation [facility] Name: Tabitha Gutierres Age: 50 yrs Sex: Female : 1970 Arrival Date: 02/10/2021 Time: 10:28 Bed 13 Private MD: CARLOS Physician Roque Robison HPI: 02/10 11:40 This 50 yrs old Female presents to ER via Ambulatory with complaints of Right obinna side Numbness. 11:40 The patient's problem is reported as weakness, in the right upper extremity, in the obinna right lower extremity. Onset: The symptoms/episode began/occurred 2 day(s) ago. Duration: The episode is continuous. Context: the episode(s) was witnessed, by family. The symptoms are alleviated by nothing. The symptoms are aggravated by nothing. Severity of symptoms: At their worst the symptoms were mild in the emergency department the symptoms are unchanged. Patient's baseline: Neuro: alert and fully oriented. The patient has not experienced similar symptoms in the past. 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 - Social history:: Smoking status: Patient denies any tobacco usage or history of. - Family history:: not pertinent. ROS: 11:40 Constitutional: Negative for fever, chills, and weight loss, Eyes: Negative for injury, obinna pain, redness, and discharge, ENT: Negative for injury, pain, and discharge, Neck: Negative for injury, pain, and swelling, Cardiovascular: Negative for chest pain, palpitations, and edema, Respiratory: Negative for shortness of breath, cough, wheezing, and pleuritic chest pain, Abdomen/GI: Negative for abdominal pain, nausea, vomiting, diarrhea, and constipation, Back: Negative for injury and pain, : Negative for injury, bleeding, discharge, and swelling, MS/Extremity: Negative for injury and deformity, Skin: Negative for injury, rash, and discoloration, Psych: Negative for depression, anxiety, suicide ideation, homicidal ideation, and hallucinations, Allergy/Immunology: Negative for hives, rash, and allergies, Endocrine: Negative for neck swelling, polydipsia, polyuria, polyphagia, and marked weight changes, Hematologic/Lymphatic: Negative for swollen nodes, abnormal bleeding, and unusual bruising. 11:40 Neuro: Positive for weakness, of the right arm and right leg. Exam: 11:40 Constitutional: This is a well developed, well nourished patient who is awake, alert, obinna and in no acute distress. Head/Face: Normocephalic, atraumatic. Eyes: Pupils equal round and reactive to light, extra-ocular motions intact. Lids and lashes normal. Conjunctiva and sclera are non-icteric and not injected. Cornea within normal limits. Periorbital areas with no swelling, redness, or edema. ENT: Nares patent. No nasal discharge, no septal abnormalities noted. Tympanic membranes are normal and external auditory canals are clear. Oropharynx with no redness, swelling, or masses, exudates, or evidence of obstruction, uvula midline. Mucous membranes moist. Neck: Trachea midline, no thyromegaly or masses palpated, and no cervical lymphadenopathy. Supple, full range of motion without nuchal rigidity, or vertebral point tenderness. No Meningismus. Chest/axilla: Normal chest wall appearance and motion. Nontender with no deformity. No lesions are appreciated. Cardiovascular: Regular rate and rhythm with a normal S1 and S2. No gallops, murmurs, or rubs. Normal PMI, no JVD. No pulse deficits. Respiratory: Lungs have equal breath sounds bilaterally, clear to auscultation and percussion. No rales, rhonchi or wheezes noted. No increased work of breathing, no retractions or nasal flaring. Abdomen/GI: Soft, non-tender, with normal bowel sounds. No distension or tympany. No guarding or rebound. No evidence of tenderness throughout. Back: No spinal tenderness. No costovertebral tenderness. Full range of motion. Female : Normal external genitalia. Skin: Warm, dry with normal turgor. Normal color with no rashes, no lesions, and no evidence of cellulitis. MS/ Extremity: Pulses equal, no cyanosis. Neurovascular intact. Full, normal range of motion. Neuro: Awake and alert, GCS 15, oriented to person, place, time, and situation. Cranial nerves II-XII grossly intact. Motor strength 5/5 in all extremities. Sensory grossly intact. Cerebellar exam normal. Normal gait. Psych: Awake, alert, with orientation to person, place and time. Behavior, mood, and affect are within normal limits. 13:06 Radiologist reports: mri , see report obinna 13:09 ECG was reviewed by the Attending Physician. [facility] Vital Signs: 10:34 BP 146 / 74; Pulse 81; Resp 18 S; Temp 97.2(TE); Pulse Ox 100% on R/A; Weight 117.93 kg ca1 (R); Height 5 ft. 0 in. (152.40 cm) (R); Pain 9/10; 11:30 BP 121 / 84; Pulse 82; Resp 17; Pulse Ox 99% ; bp 12:37 BP 97 / 47; Pulse 64; Resp 16; Pulse Ox 98% ; bp 13:40 BP 137 / 62; Pulse 66; Resp 17; Pulse Ox 99% ; bp 15:30 BP 147 / 81; Pulse 63; Resp 17; Pulse Ox 100% ; bp 16:30 BP 141 / 75; Pulse 61; Resp 17; Pulse Ox 100% ; bp 10:34 Body Mass Index 50.78 (117.93 kg, 152.40 cm) ca1 NIH Stroke Scale Scores: 12:58 NIHSS Score: 5 obinna MDM: 10:48 Patient medically screened. obinna 11:42 Differential diagnosis: CVA. Data reviewed: vital signs, nurses notes, lab test [facility] result(s), EKG, radiologic studies, CT scan, plain films. 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 Test interpretation: by ED physician or midlevel provider: ECG, plain radiologic studies. 13:04 Counseling: I had a detailed discussion with the patient and/or guardian regarding: the [facility] historical points, exam findings, and any diagnostic results supporting the discharge/admit diagnosis, lab results, radiology results, the need for further work-up and treatment in the hospital. Physician consultation: Daniel James MD and will see patient in inpatient room, solumedrol 1 gm daily for 3 days. ED course: not an acute cva, not a tpa candidate, dw dr james. 02/10 10:54 Order name: Basic Metabolic Panel [facility] 02/10 10:54 Order name: CBC with Diff obinna 02/10 10:54 Order name: LFT's [facility] 02/10 10:54 Order name: Magnesium [facility] 02/10 10:54 Order name: NT PRO-BNP 02/10 10:54 Order name: PT-INR; Complete Time: 12:57 [facility] 02/10 10:54 Order name: Troponin (emerg Dept Use Only); Complete Time: 12:57 [facility] 02/10 10:54 Order name: Sed Rate; Complete Time: 12:57 [facility] 02/10 10:54 Order name: CRP; Complete Time: 12:57 [facility] 02/10 10:54 Order name: Basic Metabolic Panel; Complete Time: 12:57 [facility] 02/10 10:54 Order name: CBC with Automated Diff; Complete Time: 12:57 [facility] 02/10 10:54 Order name: Liver (Hepatic) Function; Complete Time: 12:57 [facility] 02/10 10:54 Order name: Magnesium; Complete Time: 12:57 [facility] 02/10 10:54 Order name: NT PRO-BNP; Complete Time: 12:57 [facility] 02/10 10:54 Order name: XRAY Chest (1 view); Complete Time: 12:57 [facility] 02/10 10:54 Order name: EKG; Complete Time: 10:55 [facility] 02/10 10:54 Order name: Cardiac monitoring; Complete Time: 12:16 [facility] 02/10 10:54 Order name: EKG - Nurse/Tech; Complete Time: 12:16 [facility] 02/10 10:54 Order name: IV Saline Lock; Complete Time: 12:16 [facility] 02/10 11:36 Order name: Brain Wo Cont; Complete Time: 12:11 EDMS 02/10 12:13 Order name: Urine Dipstick--Ancillary (enter results); Complete Time: 12:57 bd 02/10 12:13 Order name: Urine --Ancillary (enter results); Complete Time: 12:57 bd 02/10 12:55 Order name: COVID-19 : Document "Date of Symptom Onset" if Symptomatic. bp 02/10 12:57 Order name: COVID-19 : Document "Date of Symptom Onset" if Symptomatic. obinna 02/10 15:18 Order name: SARS-COV-2 RT PCR EDMS 02/10 10:54 Order name: Labs collected and sent; Complete Time: 12:16 [facility] 02/10 10:54 Order name: O2 Per Protocol; Complete Time: 12:16 [facility] 02/10 10:54 Order name: O2 Sat Monitoring; Complete Time: 12:16 [facility] 02/10 10:54 Order name: Urine Dipstick-Ancillary (obtain specimen); Complete Time: 12:15 [facility] 02/10 10:54 Order name: Urine Test (obtain specimen); Complete Time: 12:15 [facility] 02/10 12:16 Order name: Misc. Order: solumedrol 1 gm iv x1; Complete Time: 12:39 obinna EC:09 Rate is 79 beats/min. Rhythm is regular. QRS [place] is Normal. [place] interval is normal. QRS obinna interval is normal. QT interval is normal. No Q waves. T waves are Normal. No ST changes noted. Clinical impression: NSR w/ Non-specific ST/T Changes and No evidence of ischemia. Interpreted by me. Reviewed by me. Administered Medications: 12:05 Drug: foLIC Acid 1 mg Route: IVPB; Site: right antecubital; bp 12:05 Drug: NS 0.9% 1000 ml Route: IV; Rate: 1 bolus; Site: right antecubital; bp 12:40 Drug: Solu-MEDROL 1 grams Route: IV; Rate: 100 ml/hr; Site: right antecubital; bp 17:56 Follow up: IV Status: Completed infusion; IV Intake: 100ml bp 13:00 Drug: Aspirin 162 mg Route: PO; bp 17:56 Follow up: Response: No adverse reaction bp Disposition: 02/10/21 13:09 Hospitalization ordered by Guy Culver for Inpatient Admission. Preliminary diagnosis are Weakness, Multiple sclerosis - right side weakness, numbness. - Bed requested for Telemetry/MedSurg (Inpatient). - Status is Inpatient Admission. iw - Condition is Fair. - Problem is new. - Symptoms have improved. NIH Stroke Scale - NIH Stroke Score Date: 02/10/2021 Time: 12:58 Total Score = 5 1a. Level of Consciousness (LOC) - 0(Alert) 1b. Level of Consciousness (LOC) (Year \\T\\ Age) - 0(Both) 1c. LOC Commands (Open \\T\\ Closes Eyes/Lead Person) - 0(Both) 2. Best Gaze (Lateral Gaze Paresis) - 0(Normal) 3. Visual Field Loss - 0(No visual loss) 4. Facial Palsy - 0(Normal) 5a. Left Arm: Motor (10-second hold) - 1(Drift) 5b. Right Arm: Motor (10-second hold) - 1(Drift) 6a. Left Leg: Motor (5-second hold - always test supine) - 1(Drift) 6b. Right Leg: Motor (5-second hold - always test supine) - 1(Drift) 7. Limb Ataxia (finger/nose \\T\\ heel/davalos - test with eyes open) - 1(Present in one limb) 8. Sensory Loss (pinprick arms/legs/face) - 0(Normal) 9. Best Language: Aphasia (description/naming/reading) - 0(No aphasia) 10. Dysarthria (speech clarity - read or repeat words) - 0(Normal) 11. Extinction and Inattention (visual/tactile/auditory/spatial/personal) - 0(No abnormality) Initials: [facility] Signatures: Dispatcher [employer] [facility] Dariana Trejo RN RN dw Anderson, Corey, MD MD cha Williams, Irene, RN RN Eladio Bhat RN RN bp Acob, Cheryl, RN RN ca1 Corrections: (The following items were deleted from the chart) 11:36 10:55 MR STROKE PROTOCOL+MRI.RAD.BRZ ordered. [facility] 15:54 13:09 Hospitalization Ordered by Guy Culver DO for Inpatient Admission. Preliminary diagnosis is Weakness; Multiple sclerosis - right side weakness, numbness. Bed requested for Telemetry/MedSurg (Inpatient). Status is Inpatient Admission. Condition is Fair. Problem is new. Symptoms have improved. [facility] 17:55 15:54 02/10/2021 13:09 Hospitalization Ordered by Guy Culver DO for iw Inpatient Admission. Preliminary diagnosis is Weakness; Multiple sclerosis - right side weakness, numbness. Bed requested for Telemetry/MedSurg (Inpatient). Status is Inpatient Admission. Condition is Fair. Problem is new. Symptoms have improved.
--- NOTE | 2021-02-10 13:10 | ER ---
Nurse's Notes [facility] Name: Tabitha Gutierres Age: 50 yrs Sex: Female : 1970 Arrival Date: 02/10/2021 Time: 10:28 Bed 13 Private MD: Diagnosis: Weakness;Multiple sclerosis-right side weakness, numbness Presentation: 02/10 10:34 Chief complaint: Patient states: Dr. Iqbal told me to come to the ER. 2 days ago, I ca1 feel numbness and heaviness on the R side of my body. Pain on my spine, headaches, feels disoriented and balance problem. I really feel bad 4 days after the 2nd shot for Covid vaccine. I was here and was checked, and just got worse day by day. Coronavirus screen: Client denies travel out of the [place] in the last 14 days. At this time, the client does not indicate any symptoms associated with coronavirus-19. Ebola Screen: Patient negative for fever greater than or equal to 101.5 degrees Fahrenheit, and additional compatible Ebola Virus Disease symptoms Patient denies exposure to infectious person. Patient denies travel to an Ebola-affected area in the 21 days before illness onset. No symptoms or risks identified at this time. Initial Sepsis Screen: Does the patient meet any 2 criteria? No. Patient's initial sepsis screen is negative. Does the patient have a suspected source of infection? No. Patient's initial sepsis screen is negative. Risk Assessment: Do you want to hurt yourself or someone else? Patient reports no desire to harm self or others. Onset of symptoms was February 08, 2021. 10:34 Method Of Arrival: Ambulatory ca1 10:34 Acuity: ESTELLA 3 ca1 Triage Assessment: 10:35 General: Appears in no apparent distress. comfortable, obese, Behavior is cooperative, bp appropriate for age, anxious. Pain: Denies pain. EENT: No deficits noted. Neuro: Reports numbness in right leg and right arm weakness in right leg and right arm. Cardiovascular: No deficits noted. Respiratory: No deficits noted. GI: No signs and/or symptoms were reported involving the gastrointestinal system. : No signs and/or symptoms were reported regarding the genitourinary system. Derm: No deficits noted. Musculoskeletal: No deficits noted. REMOTELY OPERATED VEHICLE: 10:40 LMP N/A - Irregular menses ca1 Historical: - Allergies: 10:40 PENICILLINS; ca1 - Home Meds: 10:40 Flexeril Oral as needed [Active]; gabapentin Oral as needed [Active]; naproxen Oral ca1 [Active]; - PMHx: 10:40 Multiple Sclerosis; ca1 - PSHx: 10:40 Tubal ligation; tubal reversal; ca1 - Immunization history:: Client reports receiving the 2nd dose of the Covid vaccine, Date received: January 25, 2021 Flu vaccine is up to date. - Social history:: Smoking status: Patient denies any tobacco usage or history of. - Family history:: not pertinent. Screenin:30 Abuse screen: Denies threats or abuse. Denies injuries from another. Nutritional bp screening: No deficits noted. Tuberculosis screening: No symptoms or risk factors identified. Fall Risk None identified. Assessment: 10:35 General: SEE TRIAGE NOTE. bp 11:53 Reassessment: No changes from previously documented assessment. Patient and/or family bp updated on plan of care and expected duration. Pain level reassessed. Patient is alert, oriented x 3, equal unlabored respirations, skin warm/dry/pink. PT RETURNED FROM MRI. 12:36 Reassessment: No changes from previously documented assessment. Patient and/or family bp updated on plan of care and expected duration. Pain level reassessed. Patient is alert, oriented x 3, equal unlabored respirations, skin warm/dry/pink. MEDICATION REQUESTED FROM PHARMACY, 1GM SOLU-MEDROL IV. 13:40 Reassessment: No changes from previously documented assessment. Patient and/or family bp updated on plan of care and expected duration. Pain level reassessed. Patient is alert, oriented x 3, equal unlabored respirations, skin warm/dry/pink. HOSPITALIST AT B/S. 15:30 Reassessment: No changes from previously documented assessment. Patient and/or family bp updated on plan of care and expected duration. Pain level reassessed. Patient is alert, oriented x 3, equal unlabored respirations, skin warm/dry/pink. ADMIT IN PROCESS. 16:41 Reassessment: ADMIT COMPLETE, BED ASSIGNED. bp Vital Signs: 10:34 BP 146 / 74; Pulse 81; Resp 18 S; Temp 97.2(TE); Pulse Ox 100% on R/A; Weight 117.93 kg ca1 (R); Height 5 ft. 0 in. (152.40 cm) (R); Pain 9/10; 11:30 BP 121 / 84; Pulse 82; Resp 17; Pulse Ox 99% ; bp 12:37 BP 97 / 47; Pulse 64; Resp 16; Pulse Ox 98% ; bp 13:40 BP 137 / 62; Pulse 66; Resp 17; Pulse Ox 99% ; bp 15:30 BP 147 / 81; Pulse 63; Resp 17; Pulse Ox 100% ; bp 16:30 BP 141 / 75; Pulse 61; Resp 17; Pulse Ox 100% ; bp 10:34 Body Mass Index 50.78 (117.93 kg, 152.40 cm) ca1 NIH Stroke Scale Scores: 12:58 NIHSS Score: 5 obinna ED Course: 10:28 Patient arrived in ED. mr 10:38 Triage completed. ca1 10:40 Arm band placed on right wrist. ca1 10:48 Roque Robison MD is Attending Physician. obinna 10:51 Eladio Bhat, SANTIAGO is Primary Nurse. bp 11:30 Patient has correct armband on for positive identification. Bed in low position. Call bp light in reach. Side rails up X2. 11:30 Inserted saline lock: 20 gauge in right antecubital area, using aseptic technique. bp Blood collected. 11:35 XRAY Chest (1 view) In Process Unspecified. EDMS 11:37 Brain Wo Cont In Process Unspecified. EDMS 13:07 Guy Culver DO is Hospitalizing Provider. obinna 17:27 No provider procedures requiring assistance completed. Patient admitted, IV remains in bp place. intact. Administered Medications: 12:05 Drug: foLIC Acid 1 mg Route: IVPB; Site: right antecubital; bp 12:05 Drug: NS 0.9% 1000 ml Route: IV; Rate: 1 bolus; Site: right antecubital; bp 12:40 Drug: Solu-MEDROL 1 grams Route: IV; Rate: 100 ml/hr; Site: right antecubital; bp 17:56 Follow up: IV Status: Completed infusion; IV Intake: 100ml bp 13:00 Drug: Aspirin 162 mg Route: PO; bp 17:56 Follow up: Response: No adverse reaction bp Intake: 17:56 IV: 100ml; Total: 100ml. bp Outcome: 13:09 Decision to Hospitalize by Provider. obinna 17:24 Admitted to Med/surg accompanied by tech, via wheelchair, room 215, with chart, Report bp called to KIM HENDERSON 17:55 Patient left the ED. NIH Stroke Scale - NIH Stroke Score Date: 02/10/2021 Time: 12:58 Total Score = 5 1a. Level of Consciousness (LOC) - 0(Alert) 1b. Level of Consciousness (LOC) (Year \T\ Age) - 0(Both) 1c. LOC Commands (Open \T\ Closes Eyes/Tar Heat Exchanger Cleaner) - 0(Both) 2. Best Gaze (Lateral Gaze Paresis) - 0(Normal) 3. Visual Field Loss - 0(No visual loss) 4. Facial Palsy - 0(Normal) 5a. Left Arm: Motor (10-second hold) - 1(Drift) 5b. Right Arm: Motor (10-second hold) - 1(Drift) 6a. Left Leg: Motor (5-second hold - always test supine) - 1(Drift) 6b. Right Leg: Motor (5-second hold - always test supine) - 1(Drift) 7. Limb Ataxia (finger/nose \T\ heel/davalos - test with eyes open) - 1(Present in one limb) 8. Sensory Loss (pinprick arms/legs/face) - 0(Normal) 9. Best Language: Aphasia (description/naming/reading) - 0(No aphasia) 10. Dysarthria (speech clarity - read or repeat words) - 0(Normal) 11. Extinction and Inattention (visual/tactile/auditory/spatial/personal) - 0(No abnormality) Initials: [facility] Signatures: Dispatcher [employer] EDMS Roque Robison MD MD cha Rivera, Jaquelin mr Keyla Sandoval, RN Eladio Carson RN RN bp Acob, Cheryl, RN RN ca1
[2021-02-10] MEDS ORDERED: ASPIRIN 81 MG CHEWABLE TABLET ONE (13:32)
--- NOTE | 2021-02-10 14:11 | P.HP ---
Certification for Inpatient Patient admitted to: Inpatient With expected LOS: >2 Midnights Patient will require the following post-hospital care: None Practitioner: I am a practitioner with admitting privileges, knowledge of patient current condition, hospital course, and medical plan of care. Services: Services provided to patient in accordance with Admission requirements found in Title 42 Section 412.3 of the Code of Federal Regulations Patient History Date of Service: 02/10/21 Primary Care Provider: Dr. Collins; Neurology-Dr. Iqbal Reason for admission: Neck pain, right-sided numbness History of Present Illness: 50-year-old female presented to the emergency room with symptoms of right-sided with numbness and neck pain. Patient reports a history of multiple scleroses. She had been on disease modifying medication therapy from [id number] and again in [id number]. Recently she reported some neck pain. Since that time she has been having some right sided numbness including the face, arms, abdomen and lower extremity. She had a similar episode after she had a code vaccine recently. This all started with some neck pain. Last week she reported some stomach pain with diarrhea. She came to the ER for further evaluation. In the ER patient was evaluated. MRI shows no acute stroke. Cerebral white matter signal abnormalities prevalent in the right hemisphere. Large focus is about 10 mm near the tried on right lateral ventricle. CRPelevated at 4.22. Troponin unremarkable. CBC unremarkable. BMP reviewed without significant abnormalities. Patient was admitted for further evaluation and treatment. 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 -: Tubal ligation -: Tubal reversal 2008 -: LEEP Psychosocial/ Personal History: Patient is - Family History Family History: Reviewed- Non-Contributory - Social History Smoking Status: Never smoker Alcohol use: Yes CD- Drugs: No Caffeine use: Yes Place of Residence: Home Review of Systems General: As per HPI Eyes: Unremarkable ENT: Unremarkable Respiratory: Unremarkable Cardiovascular: Unremarkable Gastrointestinal: Diarrhea, As per HPI Genitourinary: Unremarkable Musculoskeletal: Neck Pain, As per HPI Integumentary: Unremarkable Neurological: As per HPI Lymphatics: Unremarkable Physical Examination - Physical Exam General: Alert, In no apparent distress, Oriented x3, Cooperative HEENT: Atraumatic, Normocephalic, PERRLA, Mucous membr. moist/pink Neck: Supple Respiratory: Clear to auscultation bilaterally, Normal air movement Cardiovascular: Normal pulses, Regular rate/rhythm Gastrointestinal: Normal bowel sounds, Soft and benign, Non-distended, No ascites, No tenderness, No masses, No rebound, No guarding Integumentary: No erythema, No warmth, No cyanosis Neurological: Normal speech, Normal strength at 5/5 x4 extr, Normal tone, Normal affect, Abnormal sensation (Patient reports numbness to the right facial region, right upper extremity, right lower extremity.) - Studies Laboratory Data (last 24 hrs) 02/10/21 12:05: PT 11.1, INR 0.97 02/10/21 12:05: WBC 6.20, Hgb 13.2, Hct 39.9, Plt Count 282 02/10/21 12:05: Sodium 141, Potassium 3.8, BUN 11, Creatinine 0.73, Glucose 105, Magnesium 2.1, Total Bilirubin 0.3, AST 17, ALT 40, Alkaline Phosphatase 90 Assessment and Plan - Plan Impression: Right upper extremity, right lower extremity, right facial paresthesia likely secondary to recurrent multiple sclerosis exacerbation Hypothyroidism Diarrhea Neck pain Plan: Patient will be admitted for further evaluation and treatment. Case discussed with Neurology. Due to recurrent exacerbation will start high-dose IV Solu- Medrol at 1000 mg daily for 3 days. They should be able to be tapered to oral medication after 3 days. Will continue monitor the patient closely. Continue vitamin supplementation. Will check tsh and free T4. Restart home medication. Will provide DVT prophylaxis. Patient reports some diarrhea. May need to evaluate for C diff and stool culture. Will monitor this closely. Will also obtain C-spine x-ray to evaluate her neck pain. This may be related to her multiple scleroses symptoms. Will continue to monitor the patient closely. Reassess daily. Await further recommendations from Neurology. Discharge Plan: Home Plan to discharge in: 72 Hours - Advance Directives Does patient have a Living Will: No Does patient have a Durable POA for Healthcare: No - Code Status/Comfort Care Code Status Assessed: Yes Time Spent Managing Pts Care (In Minutes): 55
[2021-02-10] MEDS ORDERED: ONDANSETRON 4 MG/2 ML VIAL IV PRN (17:40)
[2021-02-10] MEDS ORDERED: ACETAMINOPHEN 500 MG TAB PO PRN (17:40)
--- NOTE | 2021-02-10 18:48 | RAD REPORT ---
EXAM DESCRIPTION: RAD - C Spine Single View - 02/10/2021 6:43 pm CLINICAL HISTORY: Neck pain FINDINGS: No fracture or dislocation. Mild spondylosis involves mid distal cervical spine mainly consisting of small osteophytes
[2021-02-10 19:05] VITALS: BMI 53.1
[2021-02-10] MEDS: LACTOBACILLUS/ACIDOPHILUS TAB PO SCH (19:54)
[2021-02-10] MEDS: HYDROCODONE/APAP 5/325 MG TAB PO PRN (19:54)
[2021-02-10 23:13] LABS: Urine Appearance CLEAR; Urine Bilirubin NEGATIVE (NEG); Urine Blood NEGATIVE (NEG); Urine Color YELLOW; Urine Glucose 2+ (NEG); Urine Protein NEGATIVE (NEG); Urine Urobilinogen 0.2 mg/dL (0.2-1.0)
[2021-02-10 23:22] LABS: Urine Microscopic Reflex NO UMIC
[2021-02-11 04:51] LABS: BUN Blood Urea Nitrogen 10 mg/dL (7-18); Bicarbonate 26 mmol/L (21-32); Glucose Level 145 mg/dL (74-106); Magnesium 2.3 mg/dL (1.8-2.4); Potassium 4.1 mmol/L (3.5-5.1); Sodium Level 141 mmol/L (136-145)
[2021-02-11] MEDS: HYDROCODONE/APAP 5/325 MG TAB PO PRN ×2 (05:13→11:22)
[2021-02-11] MEDS: ENOXAPARIN 40 MG/0.4 ML SQ SCH (09:11)
[2021-02-11] MEDS: LACTOBACILLUS/ACIDOPHILUS TAB PO SCH ×3 (09:11→20:31)
[2021-02-11] MEDS: FOLIC ACID 1 MG TABLET PO SCH (09:11)
[2021-02-11] MEDS: ZINC SULFATE 220 MG CAP PO SCH (09:11)
[2021-02-11] MEDS: THIAMINE HCL 100 MG TABLET PO SCH (09:11)
--- NOTE | 2021-02-11 09:50 | P.PN ---
Subjective Date of Service: 02/11/21 Primary Care Provider: Dr. Collins; Neurology-Dr. Iqbal Chief Complaint: Neck pain, right-sided numbness Subjective: Improving, Other (Still reports some neck pain. Mild headache noted last night.) Physical Examination - Vital Signs Temperature: 96.5 F Blood Pressure: 127/59 Pulse: 59 Respirations: 16 Pulse Ox (%): 94 - Studies Laboratory Data (last 24 hrs) 02/10/21 12:05: PT 11.1, INR 0.97 02/10/21 12:05: WBC 6.20, Hgb 13.2, Hct 39.9, Plt Count 282 02/10/21 12:05: Sodium 141, Potassium 3.8, BUN 11, Creatinine 0.73, Glucose 105, Magnesium 2.1, Total Bilirubin 0.3, AST 17, ALT 40, Alkaline Phosphatase 90 Assessment & Plan Discharge Plan: Home Plan to discharge in: 24 Hours Physician Review Additional Text: Physical exam: Patient alert, cooperative. No significant distress. Heart: Regular rate rhythm Lungs: Clear to auscultation Abdomen: Soft nontender nondistended Extremities: Still with numbness to the right side. Impression: Right upper extremity, right lower extremity, right facial paresthesia likely secondary to recurrent multiple sclerosis exacerbation Hypothyroidism Diarrhea Neck pain-mild spondylosis Plan: Continue with high-dose IV Solu-Medrol at 1000 mg. Will also provide Neurontin 100 mg 3 times a day. May need to hold with increase sedation. Neurology consulted. Case discussed in detail with Neurology. Will continue with IV Solu-Medrol for a total of 3 days then transition to tapering oral medication- steroid. Patient will require multiple sclerosus medication in the future. Continue with vitamin supplementation. X-ray shows some mild spondylosis. Will check tsh and free T4. Patient previously on medication for hypothyroidism. Will need to determine if patient will require medication. Anticipate improvement over the next 24 hr with likely discharge tomorrow. Time Spent Managing Pts Care (In Minutes): 55
[2021-02-11] MEDS: METHYLPRED NA SUC 1,000 MG in NA CHLORIDE 0.9% 100 ML IV SCH (11:22)
[2021-02-11 11:26] LABS: Thyroid Stimulating Hormone 1.1 uIU/mL (0.360-3.740)
[2021-02-11] MEDS: GABAPENTIN 100 MG CAP PO SCH ×2 (14:09→20:32)
[2021-02-11 21:12] VITALS: O2SAT 97
--- NOTE | 2021-02-12 04:38 | EKG ---
Test Date: 2021-02-10 Test Time: 10:58:13 Hand Stamper: BP MEASUREMENT RESULTS: Intervals: Rate: 79 [place]: 126 QRSD: 74 QT: 362 QTc: 415 [place]: P: 52 NJ: 126 QRS: 12 T: 25 INTERPRETIVE STATEMENTS: Normal sinus rhythm Normal ECG Compared to ECG 01/30/2021 22:03:32 No significant changes Electronically Signed On 02-12-21 04:32:57 CDT by Augustin Zuniga
[2021-02-12 07:07] LABS: BUN Blood Urea Nitrogen 12 mg/dL (7-18); Bicarbonate 26 mmol/L (21-32); Glucose Level 131 mg/dL (74-106); Magnesium 2.3 mg/dL (1.8-2.4); Potassium 4.2 mmol/L (3.5-5.1); Sodium Level 143 mmol/L (136-145)
[2021-02-12 08:06] VITALS: BP 146/67; TEMP 97.6
--- NOTE | 2021-02-12 08:48 | P.DS ---
Admission Date: 02/10/21 Discharge Date: 02/12/21 Primary Care Provider: Dr. Collins; Neurology-Dr. Iqbal Disposition: ROUTINE DISCHARGE Discharge Condition: GOOD Reason for Admission: Neck pain, right-sided numbness Consultations: Neurology-Dr. Iqbal Procedures: COVID: Negative MRI Brain: COMPARISON: MRI BRAIN W WO CONTRAST dated 07/24/2014 TECHNIQUE: Sagittal T1-weighted images were obtained along with axial PD, heavily T2-weighted and T2-FLAIR images. Axial DWI and ADC mapping sequences were also obtained along with coronal heavily T2-weighted images. FINDINGS: No intracranial hemorrhage, mass or acute infarction. There is no edema or shift of midline structures. No extra-axial fluid collections. [place]- matter/white matter junction is preserved. Signal voids are seen as a normal finding in the major intracranial vessels. No atrophy changes are present. Ventricles are normal. Patient has scattered areas of white matter signal abnormality. These are periventricular and subcortical in location. Largest is a 10 millimeter focus adjacent to the trigone right lateral ventricle. Chronic ischemic changes atypical etiology for white matter disease. Patient is relatively D on for this etiology. MS or other demyelinating process would be possible and can be correlated with clinical findings and history. Vasculitis and migraine headache etiologies are possible. Brainstem, thalamus and basal ganglia tissues are spared any signal abnormality. Mastoid air cells and paranasal sinuses are clear. IMPRESSION: No acute infarction changes are identifiable. No mass, hemorrhage or acute intracranial finding. Cerebral white matter signal abnormalities are present more prevalent in the right hemisphere. Largest focus is 10 mm near the trigone right lateral ventricle. Chronic ischemic change is typical but the patient is young for this etiology. MS or other demyelinating process would be a consideration and needs correlation. Vasculitis and migraine headache etiologies possible as well. C Spine Xray: FINDINGS: No fracture or dislocation. Mild spondylosis involves mid distal cervical spine mainly consisting of small osteophytes Medical Problem List: Right upper extremity, right lower extremity, right facial paresthesia secondary to multiple sclerosis relapse Neck pain-mild spondylosis Obesity, BMI 53.1 Brief History of Present Illness: 50-year-old female presented to the emergency room with symptoms of right-sided with numbness and neck pain. Patient reports a history of multiple scleroses. She had been on disease modifying medication therapy from [id number] and again in [id number]. Recently she reported some neck pain. Since that time she has been having some right sided numbness including the face, arms, abdomen and lower extremity. She had a similar episode after she had a code vaccine recently. This all started with some neck pain. Last week she reported some stomach pain with diarrhea. She came to the ER for further evaluation. In the ER patient was evaluated. MRI shows no acute stroke. Cerebral white matter signal abnormalities prevalent in the right hemisphere. Large focus is about 10 mm near the tried on right lateral ventricle. CRP elevated at 4.22. Troponin unremarkable. CBC unremarkable. BMP reviewed without significant abnormalities. Patient was admitted for further evaluation and treatment. Hospital Course: Patient with history of multiple scleroses. Patient with recent numbness to the right side of the body including the face, arm and lower extremity. Patient was evaluated. MRI showed cerebral white matter signal abnormalities prevalent in the right hemisphere. Large focus about 10 mm near the trigone right lateral ventricle. Patient had been on disease modifying medication in the past. Patient had seen a neurology prior to admission. Neurology recommended admission with IV steroids. Patient received IV Solu-Medrol high dose for 3 consecutive days. Symptoms have improved. Patient also started on Neurontin for pain. Patient stable at discharge. At discharge the patient will continue with prednisone 40 mg daily for 5 days then 30 mg daily for 5 days then 20 mg daily for 5 days then 10 mg daily for 5 days. The patient will also continue with vitamin supplementation including folic acid 1 mg daily, zinc 220 mg daily, and thiamine 100 mg daily. The patient will also be provided Neurontin 100 mg 3 times a day as needed for pain. Patient will follow up with neurology within 1 week to further monitor and address her condition. Patient will likely start disease modifying medication in the near future to prevent relapse. Patient also had reported some neck pain. Mild spondylosis noted. Patient may continue with Neurontin 100 mg 3 times a day as needed for pain. If this persists patient may require MRI to further evaluate. Patient reported history of thyroid disease. Tsh and free T4 within normal range. No need for medication at this time. Lifestyle modification education provided. Vital Signs/Physical Exam: Temp Pulse Resp BP Pulse Ox 97.6 F 57 19 146/67 H 95 02/12/21 08:00 02/12/21 08:00 02/12/21 08:00 02/12/21 08:00 02/12/21 08:00 General: Alert, In no apparent distress, Oriented x3, Cooperative HEENT: Atraumatic Neck: Supple Respiratory: Clear to auscultation bilaterally, Normal air movement Cardiovascular: Normal pulses, Regular rate/rhythm Gastrointestinal: No guarding Neurological: Normal speech, Normal strength at 5/5 x4 extr, Normal tone, Abnormal sensation (numbness to the right side of body improved) Laboratory Data at Discharge: WBC 6.20 K/uL (4.3-10.9) 02/10/21 12:05 Hgb 13.2 g/dL (12.0-15.0) 02/10/21 12:05 Hct 39.9 % (36.0-45.0) 02/10/21 12:05 Plt Count 282 K/uL (152-406) 02/10/21 12:05 PT 11.1 SECONDS (9.5-12.5) 02/10/21 12:05 INR 0.97 02/10/21 12:05 Sodium 143 mmol/L (136-145) 02/12/21 05:57 Potassium 4.2 mmol/L (3.5-5.1) 02/12/21 05:57 BUN 12 mg/dL (7-18) 02/12/21 05:57 Creatinine 0.64 mg/dL (0.55-1.3) 02/12/21 05:57 Glucose 131 mg/dL (74-106) H 02/12/21 05:57 Magnesium 2.3 mg/dL (1.8-2.4) 02/12/21 05:57 Total Bilirubin 0.3 mg/dL (0.2-1.0) 02/10/21 12:05 AST 17 U/L (15-37) 02/10/21 12:05 ALT 40 U/L (12-78) 02/10/21 12:05 Alkaline Phosphatase 90 U/L (45-117) 02/10/21 12:05 Home Medications: Folic Acid 1 mg PO DAILY #90 tablet 02/12/21 Gabapentin [Neurontin*] 100 mg PO TID PRN #30 cap 02/12/21 Thiamine HCl [Vitamin B-1*] 100 mg PO DAILY #90 tablet 02/12/21 Zinc Sulfate [Zinc Sulfate*] 220 mg PO DAILY #90 cap 02/12/21 predniSONE [Deltasone*] 10 mg PO SEECOM #50 tab 02/12/21 New Medications: predniSONE [Deltasone*] 10 mg PO SEECOM #50 tab Folic Acid 1 mg PO DAILY #90 tablet Gabapentin [Neurontin*] 100 mg PO TID PRN #30 cap PRN Reason: Pain Scale 2-4 (Mild) Thiamine HCl [Vitamin B-1*] 100 mg PO DAILY #90 tablet Zinc Sulfate [Zinc Sulfate*] 220 mg PO DAILY #90 cap Physician Discharge Instructions: Patient with history of multiple scleroses. Patient with recent numbness to the right side of the body including the face, arm and lower extremity. Patient was evaluated. MRI showed cerebral white matter signal abnormalities prevalent in the right hemisphere. Large focus about 10 mm near the trigone right lateral ventricle. Patient had been on disease modifying medication in the past. Patient had seen a neurology prior to admission. Neurology recommended admission with IV steroids. Patient received IV Solu-Medrol high dose for 3 consecutive days. Symptoms have improved. Patient also started on Neurontin for pain. Patient stable at discharge. At discharge the patient will continue with prednisone 40 mg daily for 5 days then 30 mg daily for 5 days then 20 mg daily for 5 days then 10 mg daily for 5 days. The patient will also continue with vitamin supplementation including folic acid 1 mg daily, zinc 220 mg daily, and thiamine 100 mg daily. The patient will also be provided Neurontin 100 mg 3 times a day as needed for pain. Patient will follow up with neurology within 1 week to further monitor and address her condition. Patient will likely start disease modifying medication in the near future to prevent relapse. Patient also had reported some neck pain. Mild spondylosis noted. Patient may continue with Neurontin 100 mg 3 times a day as needed for pain. If this persists patient may require MRI to further evaluate. Patient reported history of thyroid disease. Tsh and free T4 within normal range. No need for medication at this time. Lifestyle modification education provided. Diet: AHA Activity: Ad leoncio Followup: Dennis KISER,Radha Black DO [Primary Care Provider] - Time spent managing pt's care (in minutes): 55
[2021-02-12] MEDS: ENOXAPARIN 40 MG/0.4 ML SQ SCH (09:00)
[2021-02-12] MEDS: FOLIC ACID 1 MG TABLET PO SCH (09:09)
[2021-02-12] MEDS: GABAPENTIN 100 MG CAP PO SCH (09:10)
[2021-02-12] MEDS: HYDROCODONE/APAP 5/325 MG TAB PO PRN (09:10)
[2021-02-12] MEDS: LACTOBACILLUS/ACIDOPHILUS TAB PO SCH (09:10)
[2021-02-12] MEDS: ZINC SULFATE 220 MG CAP PO SCH (09:10)
[2021-02-12] MEDS: THIAMINE HCL 100 MG TABLET PO SCH (09:11)
[2021-02-12] MEDS: METHYLPRED NA SUC 1,000 MG in NA CHLORIDE 0.9% 100 ML IV SCH (09:38)
== END 2021-02-12 11:43 | disposition home or self-care (01) | DRG 59 ==
LOC: ER 10:24 → ERHOLD 13:38 → 2ND 17:26
PROVIDERS: ADMIT Family Medicine; ATTEND Family Medicine
DX: G35 Multiple sclerosis (principal); Z68.43 Body mass index [BMI] 50.0-59.9, adult; E66.9 Obesity, unspecified; M47.9 Spondylosis, unspecified; E03.9 Hypothyroidism, unspecified; R19.7 Diarrhea, unspecified; Z88.0 Allergy status to penicillin; Z79.52 Long term (current) use of systemic steroids; Z79.899 Other long term (current) drug therapy; Z98.51 Tubal ligation status; Z20.822 Contact with and (suspected) exposure to COVID-19
CPT/HCPCS: 36415; 70551; 71045; 72020; 80048; 80076; 81003; 81025; 83735; 83880; 84439; 84443; 84484; 85025; 85610; 85652; 86140; 93005; 96365; 96366; 96375; 99285; J1650; J2405; J2930; J7030; U0003

== ENCOUNTER 2023-08-10 18:45 | Emergency (ER) | payer SELFPAY ==
--- OUTSIDE RECORDS SUMMARY | 2023-08-10 18:52 | XMS REPORT | Continuity of Care Document ---
:1970 Author Organization [facility] t Address [address] [place] [address] [address] [place] [address] Care Team Providers Name Role Phone Radha Collins Primary Care Physician JOSE COPPOLA Attending Clinician Unavailable JOSE COPPOLA Attending Clinician Unavailable Ludmila Smith MA Attending Clinician Unavailable Lab, Ang - Db Attending Clinician Unavailable ESTEFANIA CRUM Attending Clinician Unavailable Estefania Crum MD Attending Clinician Therapy, Clc Covid Infusion Attending Clinician Unavailable Roxy Thomas MD Attending Clinician ROXY THOMAS Attending Clinician Unavailable Only, Geovany Db Test Attending Clinician Unavailable Anurag Mason MD Attending Clinician ANURAG MASON Attending Clinician Unavailable AMARI ESCOBEDO Attending Clinician Unavailable Amari Escobedo APN Attending Clinician Karen Bruno Attending Clinician JOSE COPPOLA Admitting Clinician Unavailable ESTEFANIA CRUM Admitting Clinician Unavailable AMARI ESCOBEDO Admitting Clinician Unavailable Payers Payer Name Policy Type Policy Number Effective Date Expiration Date S war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 0-03 ity of 00:00: [place] [facility] Excessive Excessive Disease Active Uni vers bleeding bleeding 8- ity of in in 00:00: [place] premenopau premenopau 00 Me dical laura period laura period Br anch Pain Pain Disease Active Univers pelvic pelvic 8- ity of 00:00: [place] [facility] Hirsutism Hirsutism Disease Active Uni vers 07-20 ity of 00:: [place] [facility] Well woman Well woman Disease Active U nivers exam with exam with 07-20 ity of routine routine 00:00: [place] gynecologi gynecologi 00 Me dical carmen exam carmen exam Branch Personal Personal Disease Active Unive rs history of history of 07-20 it y of COVID-19 COVID-19 00:00: [place] [facility] Personal Personal Disease Active Unive rs history of history of 8 it y of diseases diseases 00:00: [place] of the ms of the ms 00 Medi carmen sys and sys and Branch conn tiss conn tiss Disease Active Uni vers examinatio examinatio 07-20 it y of n or test, n [place] test, 00:[place] negative negative 00 Medica l result result Branch BMI BMI Disease Active Univers 50.0-59.9, 50.0-59.9, 8-22 it y of adult adult 00:00: [place] 00 Medical Branch Eye pain Eye pain Disease Active 2012-11 Unive rs 1-14 ity of 00:00: [place] [facility] 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 Unive rs sclerosis sclerosis 1-14 ity of exacerbati exacerbati 00:[place] 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 1-14 ity of due to due to 00:00: [place] multiple multiple 00 Medica l sclerosis sclerosis Bran ch Allergies, Adverse Reactions, Alerts Allergy Allergy Status Severity Reaction(s) Onset Inactive Treating Comm ents Source Name Type Date Date Clinician Oseltami Propensi Active Hallucinatio Univers vir ty to ns 8-17 ity of adverse 00:00: [place] reaction 00 Medical s Branch OSELTAMI DRUG Active Hallucinates Un vivi VIR INGREDI 8-17 ity of 00:00: [place] 00 Medical [place] Penicill Propensi Active Anaphylaxis 2015- U nivers ins ty to 8-17 ity of adverse 00:00: [place] reaction Medical s Branch PENICILL Drug Active Anaphylaxis 2015- Uni vers INS Class 8-17 ity of 00:00: [place] 00 Medical [place] Social History Social Habit Start Date Stop Date Quantity Comments Source Exposure to 2022-08-21 2022-08-31 Not sure [facility] SARS-CoV-2 00:00:00 16:05:00 [facility] (event) [place] Alcohol intake 2022-08-31 2022-08-31 Current University 00:00:00 00:00:00 non-drinker of [facility] alcohol (finding) [place] Tobacco use and 2022-07-20 2022-07-20 Smokeless tobacco Un iversity of exposure 00:00:00 00:00:00 non-user [facility] Sex Ass[birth year] At [birth year] Universit y of 00:00:00 00:00:00 [facility] Smoking Status Start Date Stop Date Source Never smoked tobacco [facility] [place] [facility] Medications Ordered Filled Start Stop Current Ordering Indication Dosage Frequency Signature Comments Components Source Medication Medication Date Date Medication? Clinician (SIG) Name Name terconazole 2021-11- No [id number] 80mg Insert 1 Univers 80 mg 0-27 10-31 Suppositor ity of vaginal 00:00: 04:59 y into [place] suppository 00 :00 vagina at [facility] for 3 days. terconazole 2021-11- No [id number] 80mg Insert 1 Univers 80 mg 0-27 10-31 Suppositor ity of vaginal 00:00: 04:59 y into [place] suppository 00 :00 vagina at [facility] for 3 days. tranexamic 2021-11- No [id number] 1300mg Take 2 Univers acid 650 mg 0-03 10-14 tablets by i ty of tablet 00:00: 04:59 mouth in [place] 00 :00 the Medical morning Branch and 2 tablets at noon and 2 tablets in the evening. Do all this for 10 days. tranexamic 2021-11- No [id number] 1300mg Take 2 Univers acid 650 mg 0-03 10-14 tablets by i ty of tablet 00:00: 04:59 mouth in [place] 00 :00 the Medical morning Branch and 2 tablets at noon and 2 tablets in the evening. Do all this for 10 days. tranexamic 2021- No [id number] 1300mg Take 2 Univers acid 650 mg 9-12 09-18 tablets by i ty of tablet 00:00: 04:59 mouth in [place] 00 :00 the Medical morning Branch and 2 tablets at noon and 2 tablets in the evening. Do all this for 5 days. ciprofloxac 2021-0 Yes [id number] 500mg Take 1 Univers in HCl 500 8-17 tablet by [place]y of mg tablet 00:00[place] and 1 tablet in the evening. ciprofloxac 2021-0 Yes [id number] 500mg Take 1 Univers in HCl 500 8-17 tablet by ity of mg tablet 00:00: [place] the [place] Branch and 1 tablet in the evening. ciprofloxac 2021-0 Yes [id number] 500mg Take 1 Univers in HCl 500 8-17 tablet by ity of mg tablet 00:00: [place] the [place] and 1 tablet in the evening. ciprofloxac 2021-0 Yes [id number] 500mg Take 1 Univers in HCl 500 8-17 tablet by ity of mg tablet 00:00: [place] the [place] Branch and 1 tablet in the evening. ciprofloxac 2021-0 Yes [id number] 500mg Take 1 Univers in HCl 500 8-17 tablet by ity of mg tablet 00:00: [place] the [place] Branch and 1 tablet in the evening. ciprofloxac 2021-0 Yes [id number] 500mg Take 1 Univers in HCl 500 8-17 tablet by ity of mg tablet 00:00: [place] the [place] Branch and 1 tablet in the evening. ciprofloxac 2021-0 Yes [id number] 500mg Take 1 Univers in HCl 500 8-17 tablet by [place]y of mg tablet 00:00: [place] the [place] Branch and 1 tablet in the evening. ciprofloxac 2022-0 Yes [id number] 500mg Take 1 Univers in HCl 500 8-17 tablet by ity of mg tablet 00:00: [place] the [place] Branch and 1 tablet in the evening. ciprofloxac 2022-0 Yes [id number] 500mg Take 1 Univers in HCl 500 8-17 tablet by ity of mg tablet 00:00: [place] the [place] Branch and 1 tablet in the evening. benzonatate 202-0 Yes [id number] 100mg Take 1 Univers 100 mg 5-22 capsule by ity of capsule 00:00: mouth 3 (three) Medical times Branch daily as needed for Cough. albuterol 2021-0 Yes [id number] 2{puff} Inhale 2 Univers 90 5-22 Puffs ity of mcg/actuati 00:00: every 4 [place] on inhaler 00 (four) Medical hours as Branch needed for Wheezing or Shortness of Breath. benzonatate 2021-0 Yes [id number] 100mg Take 1 Univers 100 mg 5-22 capsule by ity of capsule 00:00: mouth (three) Medical times Branch daily as needed for Cough. albuterol 2021-0 Yes [id number] 2{puff} Inhale 2 Univers 90 5-22 Puffs ity of mcg/actuati 00:00: every 4 [place] on inhaler 00 (four) Medical hours as Branch needed for Wheezing or Shortness of Breath. benzonatate 2-0 Yes [id number] 100mg Take 1 Univers 100 mg 5-22 capsule by ity of capsule 00:00: mouth 3 (three) Medical times Branch daily as needed for Cough. albuterol 2022-0 Yes [id number] 2{puff} Inhale 2 Univers 90 5-22 Puffs ity of mcg/actuati 00:00: every 4 [place] on inhaler 00 (four) Medical hours as Branch needed for Wheezing or Shortness of Breath. benzonatate 2022-0 Yes [id number] 100mg Take 1 Univers 100 mg 5-22 capsule by ity of capsule 00:00: mouth 3 (three) Medical times Branch daily as needed for Cough. albuterol 2021-0 Yes [id number] 2{puff} Inhale 2 Univers 90 5-22 Puffs ity of mcg/actuati 00:00: every 4 [place] on inhaler 00 (four) Medical hours as Branch needed for Wheezing or Shortness of Breath. benzonatate 2-0 Yes [id number] 100mg Take 1 Univers 100 mg 5-22 capsule by ity of capsule 00:00: mouth (three) Medical times Branch daily as needed for Cough. albuterol 2021-0 Yes [id number] 2{puff} Inhale 2 Univers 90 5-22 Puffs ity of mcg/actuati 00:00: every 4 [place] on inhaler 00 (four) Medical hours as Branch needed for Wheezing or Shortness of Breath. benzonatate 2021-0 Yes [id number] 100mg Take 1 Univers 100 mg 5-22 capsule by ity of capsule 00:00: mouth (three) Medical times Branch daily as needed for Cough. albuterol 2021-0 Yes [id number] 2{puff} Inhale 2 Univers 90 5-22 Puffs ity of mcg/actuati 00:00: every 4 [place] on inhaler 00 (four) Medical hours as Branch needed for Wheezing or Shortness of Breath. benzonatate 2-0 Yes [id number] 100mg Take 1 Univers 100 mg 5-22 capsule by ity of capsule 00:00: mouth (three) Medical times Branch daily as needed for Cough. albuterol 2-0 Yes [id number] 2{puff} Inhale 2 Univers 90 5-22 Puffs ity of mcg/actuati 00:00: every 4 [place] on inhaler 00 (four) Medical hours as Branch needed for Wheezing or Shortness of Breath. benzonatate 2022-0 Yes [id number] 100mg Take 1 Univers 100 mg 5-22 capsule by ity of capsule 00:00: mouth 3 (three) Medical times Branch daily as needed for Cough. albuterol 2022-0 Yes [id number] 2{puff} Inhale 2 Univers 90 5-22 Puffs ity of mcg/actuati 00:00: every 4 [place] on inhaler 00 (four) Medical hours as Branch needed for Wheezing or Shortness of Breath. benzonatate Yes [id number] 100mg Take 1 Univers 100 mg 5-22 capsule by ity of capsule 00:00: mouth 3 [place] 00 (three) Medical times Branch daily as needed for Cough. albuterol Yes [id number] 2{puff} Inhale 2 Univers 90 5-22 Puffs ity of mcg/actuati 00:00: every 4 [place] on inhaler 00 (four) Medical hours as Branch needed for Wheezing or Shortness of Breath. nirmatrelvi Yes [id number] 3{tbl} Take 3 Univers r-ritonavir 5-21 tablets by it y of (PAXLOVID, 00:00: [place] EUA,) 150 00 (two) Medical mg x 2- 100 times Branch mg tablet daily. nirmatrelvi Yes [id number] 3{tbl} Take 3 Univers r-ritonavir 5-21 tablets by it y of (PAXLOVID, 00:00: [place] EUA,) 150 00 (two) Medical mg x 2- 100 times Branch mg tablet daily. nirmatrelvi Yes [id number] 3{tbl} Take 3 Univers r-ritonavir 5-21 tablets by it y of (PAXLOVID, 00:00: [place] EUA,) 150 00 (two) Medical mg x 2- 100 times Branch mg tablet daily. nirmatrelvi Yes [id number] 3{tbl} Take 3 Univers r-ritonavir 5-21 tablets by it y of (PAXLOVID, 00:00: mouth [place] EUA,) 150 00 (two) Medical mg x 2- 100 times Branch mg tablet daily. nirmatrelvi Yes [id number] 3{tbl} Take 3 Univers r-ritonavir 5-21 tablets by it y of (PAXLOVID, 00:00: [place] EUA,) 150 00 (two) Medical mg x 2- 100 times Branch mg tablet daily. nirmatrelvi Yes [id number] 3{tbl} Take 3 Univers r-ritonavir 5-21 tablets by it y of (PAXLOVID, 00:00: mouth [place] EUA,) 150 00 (two) Medical mg x 2- 100 times Branch mg tablet daily. nirmatrelvi Yes [id number] 3{tbl} Take 3 Univers r-ritonavir 5-21 tablets by it y of (PAXLOVID, 00:00: mouth [place] EUA,) 150 00 (two) Medical mg x 2- 100 times Branch mg tablet daily. nirmatrelvi Yes [id number] 3{tbl} Take 3 Univers r-ritonavir 5-21 tablets by it y of (PAXLOVID, 00:00: mouth [place] EUA,) 150 00 (two) Medical mg x 2- 100 times Branch mg tablet daily. nirmatrelvi Yes [id number] 3{tbl} Take 3 Univers r-ritonavir 5-21 tablets by it y of (PAXLOVID, 00:00: mouth [place] EUA,) 150 00 (two) Medical mg x 2- 100 times Branch mg tablet daily. dicyclomine 2020-1 Yes [id number] 20mg Take 1 Univers 20 mg 0-09 tablet by ity of tablet 00:00: mouth 4 [place] 00 (four) Medical times Branch daily as needed for Abdominal pain. ondansetron 2020-1 Yes [id number] 4mg Take 1 Univers (ZOFRAN 0-09 tablet by ity of ODT) 4 mg 00:00: mouth [place] disintegrat 00 every 8 Medic al ing tablet (eight) Branch hours as needed for Nausea and Vomiting (N/V). dicyclomine 2020-1 Yes [id number] 20mg Take 1 Univers 20 mg 0-09 tablet by ity of tablet 00:00: mouth 4 [place] 00 (four) Medical times Branch daily as needed for Abdominal pain. ondansetron 2020-1 Yes [id number] 4mg Take 1 Univers (ZOFRAN 0-09 tablet by ity of ODT) 4 mg 00:00: mouth [place] disintegrat 00 every 8 Medic al ing tablet (eight) Branch hours as needed for Nausea and Vomiting (N/V). dicyclomine 2020-1 Yes [id number] 20mg Take 1 Univers 20 mg 0-09 tablet by ity of tablet 00:00: mouth 4 [place] 00 (four) Medical times Branch daily as needed for Abdominal pain. ondansetron 2020-1 Yes [id number] 4mg Take 1 Univers (ZOFRAN 0-09 tablet by ity of ODT) 4 mg 00:00: mouth [place] disintegrat 00 every 8 Medic al ing tablet (eight) Branch hours as needed for Nausea and Vomiting (N/V). dicyclomine 2020-1 Yes [id number] 20mg Take 1 Univers 20 mg 0-09 tablet by ity of tablet 00:00: mouth 4 [place] 00 (four) Medical times Branch daily as needed for Abdominal pain. ondansetron 2020-1 Yes [id number] 4mg Take 1 Univers (ZOFRAN 0-09 tablet by ity of ODT) 4 mg 00:00: mouth [place] disintegrat 00 every 8 Medic al ing tablet (eight) Branch hours as needed for Nausea and Vomiting (N/V). dicyclomine 2020-1 Yes [id number] 20mg Take 1 Univers 20 mg 0-09 tablet by ity of tablet 00:00: mouth 4 [place] 00 (four) Medical times Branch daily as needed for Abdominal pain. ondansetron 2020-1 Yes [id number] 4mg Take 1 Univers (ZOFRAN 0-09 tablet by ity of ODT) 4 mg 00:00: mouth [place] disintegrat 00 every 8 Medic al ing tablet (eight) Branch hours as needed for Nausea and Vomiting (N/V). dicyclomine 2020-1 Yes [id number] 20mg Take 1 Univers 20 mg 0-09 tablet by ity of tablet 00:00: mouth 4 [place] 00 (four) Medical times Branch daily as needed for Abdominal pain. ondansetron 2020-1 Yes [id number] 4mg Take 1 Univers (ZOFRAN 0-09 tablet by ity of ODT) 4 mg 00:00: mouth [place] disintegrat 00 every 8 Medic al ing tablet (eight) Branch hours as needed for Nausea and Vomiting (N/V). dicyclomine 2020-1 Yes [id number] 20mg Take 1 Univers 20 mg 0-09 tablet by ity of tablet 00:00: mouth 4 [place] 00 (four) Medical times Branch daily as needed for Abdominal pain. ondansetron 2020-1 Yes [id number] 4mg Take 1 Univers (ZOFRAN 0-09 tablet by ity of ODT) 4 mg 00:00: mouth [place] disintegrat 00 every 8 Medic al ing tablet (eight) Branch hours as needed for Nausea and Vomiting (N/V). dicyclomine 2020-1 Yes [id number] 20mg Take 1 Univers 20 mg 0-09 tablet by ity of tablet 00:00: mouth 4 [place] 00 (four) Medical times Branch daily as needed for Abdominal pain. ondansetron 2020-1 Yes [id number] 4mg Take 1 Univers (ZOFRAN 0-09 tablet by ity of ODT) 4 mg 00:00: mouth [place] disintegrat 00 every 8 Medic al ing tablet (eight) Branch hours as needed for Nausea and Vomiting (N/V). dicyclomine 2020-1 Yes [id number] 20mg Take 1 Univers 20 mg 0-09 tablet by ity of tablet 00:00: mouth 4 [place] 00 (four) Medical times Branch daily as needed for Abdominal pain. ondansetron 2020-1 Yes [id number] 4mg Take 1 Univers (ZOFRAN 0-09 tablet by ity of ODT) 4 mg 00:00: mouth [place] disintegrat 00 every 8 Medic al ing tablet (eight) Branch hours as needed for Nausea and Vomiting (N/V). cyclobenzap 2018-0 Yes [id number] 10mg Take 1 Univers rine 10 mg 1-26 tablet by ity of tablet 00:00: mouth 3 00 (three) Medical times Branch daily. acetaminoph 2018-0 Yes [id number] 1/2 - 1 Univers en-codeine 1-26 tab Every ity of 300-30 mg 00:00: 4hrs as [place] tablet 00 needed for Medical pain or Branch cough requiring narcotic cyclobenzap 2018-0 Yes [id number] 10mg Take 1 Univers rine 10 mg 1-26 tablet by ity of tablet 00:00: mouth 3 [place] 00 (three) Medical times Branch daily. acetaminoph 2018-0 Yes [id number] 1/2 - 1 Univers en-codeine 1-26 tab Every ity of 300-30 mg 00:00: 4hrs as [place] tablet 00 needed for Medical pain or Branch cough requiring narcotic cyclobenzap 2018-0 Yes [id number] 10mg Take 1 Univers rine 10 mg 1-26 tablet by ity of tablet 00:00: mouth 3 [place] 00 (three) Medical times Branch daily. acetaminoph 2018-0 Yes [id number] 1/2 - 1 Univers en-codeine 1-26 tab Every ity of 300-30 mg 00:00: 4hrs as [place] tablet 00 needed for Medical pain or Branch cough requiring narcotic cyclobenzap 2018-0 Yes [id number] 10mg Take 1 Univers rine 10 mg 1-26 tablet by ity of tablet 00:00: mouth 3 [place] 00 (three) Medical times Branch daily. acetaminoph 2018-0 Yes [id number] /2 - 1 Univers en-codeine 1-26 tab Every ity of 300-30 mg 00:00: 4hrs as [place] tablet 00 needed for Medical pain or Branch cough requiring narcotic cyclobenzap 2018-0 Yes [id number] 10mg Take 1 Univers rine 10 mg 1-26 tablet by ity of tablet 00:00: mouth 3 [place] 00 (three) Medical times Branch daily. acetaminoph 2018-0 Yes [id number] /2 - 1 Univers en-codeine 1-26 tab Every ity of 300-30 mg 00:00: 4hrs as [place] tablet 00 needed for Medical pain or Branch cough requiring narcotic cyclobenzap 2017-0 Yes [id number] 10mg Take 1 Univers rine 10 mg 1-26 tablet by ity of tablet 00:00: mouth 3 00 (three) Medical times Branch daily. acetaminoph 2018-0 Yes [id number] /2 - 1 Univers en-codeine 1-26 tab Every ity of 300-30 mg 00:00: 4hrs as [place] tablet 00 needed for Medical pain or Branch cough requiring narcotic cyclobenzap 2018-0 Yes [id number] 10mg Take 1 Univers rine 10 mg 1-26 tablet by ity of tablet 00:00: mouth 3 [place] 00 (three) Medical times Branch daily. acetaminoph 2018-0 Yes [id number] 1/2 - 1 Univers en-codeine 1-26 tab Every ity of 300-30 mg 00:00: 4hrs as [place] tablet 00 needed for Medical pain or Branch cough requiring narcotic cyclobenzap 2018-0 Yes [id number] 10mg Take 1 Univers rine 10 mg 1-26 tablet by ity of tablet 00:00: mouth 3 [place] 00 (three) Medical times Branch daily. acetaminoph Yes [id number] 2 - Univers en-codeine 1-26 tab Every ity of 300-30 mg 00:00: 4hrs as [place] tablet 00 needed for Medical pain or Branch cough requiring narcotic cyclobenzap Yes [id number] 10mg Take 1 Univers rine 10 mg 1-26 tablet by ity of tablet 00:00: mouth 3 [place] 00 (three) Medical times Branch daily. acetaminoph Yes [id number] 2 - Univers en-codeine 1-26 tab Every ity of 300-30 mg 00:00: 4hrs as [place] tablet 00 needed for Medical pain or Branch cough requiring narcotic Immunizations Ordered Filled Immunization Date Status Comments [facility] e Immunization Name Name KEERTHI 2022-04-21 Completed University o f 00:00:00 [facility] SHENMAB 2022-04-21 Completed University o f 00:00:00 [facility] BEFÁTIMAMAB 2022-04-21 Completed University o f 00:00:00 [facility] BEFÁTIMAMAB 2022-04-21 Completed University o f 00:00:00 [facility] BEFÁTIMAMAB 2022-04-21 Completed University o f 00:00:00 [facility] BEJESSICAB 2022-04-21 Completed University o f 00:00:00 [facility] BEFÁTIMAMAB 2022-04-21 Completed University o f 00:00:00 [facility] BEFÁTIMAMAB 2022-04-21 Completed University o f 00:00:00 [facility] BEFÁTIMAMAB 2022-04-21 Completed University o f 00:00:00 [facility] Influenza Virus 2014-10-24 Completed Universit y of Vaccine 00:00:00 [facility] Influenza Virus 2014-10-24 Completed Universit y of Vaccine 00:00:00 [facility] Influenza Virus 2014-10-24 Completed Universit y of Vaccine 00:00:00 [facility] Influenza Virus 2014-10-24 Completed Universit y of Vaccine 00:00:00 [facility] Influenza Virus 2014-10-24 Completed Universit y of Vaccine 00:00:00 [facility] Influenza Virus 2014-10-24 Completed Universit y of Vaccine 00:00:00 [facility] Influenza Virus 2014-10-24 Completed Universit y of Vaccine 00:00:00 [facility] Vital Signs Vital Name Observation Time Observation Value Comments Source Systolic blood 2022-08-31 21:25:00 131 mm[Hg] [facility] Diastolic blood 2022-08-31 21:25:00 85 mm[Hg] [facility] Heart rate 2022-08-31 21:25:00 84 /min [facility] Body temperature 2022-08-31 21:25:00 36.72 [place] [facility] Respiratory rate 2022-08-31 21:25:00 18 /min [facility] Body height 2022-08-31 21:25:00 154.9 cm [facility] Body weight 2022-08-31 21:25:00 122.925 kg [facility] BMI 2022-08-31 21:25:00 51.21 kg/m2 [facility] Procedures Procedure Date / Time Performing Clinician Source Performed POCT URINALYSIS W/O 2022-08-31 00:00:00 Jose Coppola [facility] SPECIFIC GRAVITY [facility] FREE T4 2022-07-23 20:50:00 Jose Coppola [facility] TRIIODOTHYRONINE 2022-07-23 20:50:[address] [facility] EXTERNAL MAMMOGRAM 2018-12-22 14:00:00 Doctor Unassigned, [facility] Encounters Start End Encounter Admission Attending Care Care Encounter Source Date/Time Date/Time Type Type Clinicians Facility Department ID 2021-09-26 Emergency [facility] [id number] Univers 22:02:49 [facility] 2022-09-24 2022-09-24 Case YAMILET Coppola MENDIETA [id number] [facility] 00:00:00 00:00:00 Management Jose ISAAC [id number] ity of WOMEN'S [id number] [facility] [id number] [facility] [address] Branch 2022-09-24 2022-09-24 [facility] [id number] Univers 00:00:00 00:00:00 Jose ISAAC [id number] it y of WOMEN'S [id number] [facility] [id number] [facility] [address] Branch 2022-09-18 2022-09-18 Outpatient R JOSE COPPOLA [facility] B [id number] Univers 14:16:33 23:59:00 JOSE COPPOLA [facility] 2022-09-18 2022-09-18 [facility] [id number] Univers 14:16:33 23:59:00 Encounter Jose BRIONES [id number] ity [facility] [id number] [facility] [id number] [facility] [address] Branch 2022-08-31 2022-08-31 Outpatient R JOSE COPPOLA [facility] B [id number] Univers 16:30:00 16:48:52 JOSE COPPOLA [facility] 2022-08-31 2022-08-31 [facility] [id number] Univers 16:30:00 16:48:52 Visit Jose ISAAC [id number] it y of WOMEN'S [id number] [facility] [id number] [facility] [address] Branch 2022-08-24 2022-08-24 Outpatient R JOSE COPPOLA [facility] B [id number] Univers 13:30:00 13:30:00 JOSE COPPOLA [facility] 2022-08-21 2022-08-21 Outpatient R JOSE COPPOLA [facility] B [id number] Univers 13:30:00 13:30:00 JOSE COPPOLA [facility] 2022-08-11 2022-08-11 Outpatient R JOSE COPPOLAMB UTM B [id number] Univers 13:45:00 13:45:00 GORDYJOSE GORDON [facility] 2022-08-10 2022-08-10 Telephone [place] [facility] [place] 1.2.840.11 [id number] Univers 00:00:00 00:00:00 Jose ISAAC [id number] it y of [id number] [id number] [address] 2022-08-07 2022-08-07 Outpatient R YOANAJOSE YEAGER [facility] B [id number] Univers 00:00:00 00:00:00 ABDONJOSE [facility] 2022-08-04 2022-08-04 Pre Visit MERARI SmithShellie [id number] [facility] 00:00:00 00:00:00 Outreach Ludmila MAST [id number] i [place] [id number] [address] 2022-07-30 2022-07-30 Telephone [facility] 1.2.840.11 [id number] Univers 00:00:00 00:00:00 Jose ISAAC [id number] it [id number] [id number] [address] 2022-07-23 2022-07-23 [employer], Ang - Db [facility] 1.2.840.1 [id number] Univers 15:45:00 16:20:32 Visit YoanaJose yeager 350.1.13.1 0 ity of [place] 4.2.7.2.686 Surinder as KASSANDRA?BLEA [id number] Ga jeff [address] MEDICAL OFFICE BUILDING 2022-07-23 2022-07-23 Outpatient R YOANAJOSE YEAGER [facility] B [id number] Univers 15:45:00 15:45:00 ABDONJOSE [facility] 2022-07-22 2022-07-22 Telephone [facility] 1.2.840.11 [id number] Univers 00:00:00 00:00:00 Jose ISAAC 350.1.13.10 it [place] [id number] [address] 2022-07-21 2022-07-21 Case Abdon [facility] 1.2.840.114 [id number] Univers 00:00:00 00:00:00 Management Jose ISAAC 350.1.13.10 it[place] [id number] [address] 2022-07-20 2022-07-20 [employer], Ang - Db [facility] 1.2.840.1 [id number] Univers 12:30:00 12:45:00 Visit Jose Coppola HENNY 350.1.13.1 0 ity of [place] 4.2.7.2.686 Surinder as KASSANDRA?BLEA [id number] [address] MEDICAL OFFICE BUILDING 2022-07-20 2022-07-20 Outpatient R JOSE COPPOLA [facility] B [id number] Univers 10:45:00 12:03:48 JOSE COPPOLAakbar [facility] 2022-07-20 2022-07-20 Office Abdon [facility] 1.2.840.114 [id number] Univers 10:45:00 12:03:48 Visit Jose ISAAC 350.1.13.10 it [place] [id number] [address] 2022-07-20 2022-07-20 Outpatient R ABDON JOSE [facility] B [id number] Univers 10:45:00 12:03:48 ABDONJOSE galakbar [facility] 2022-07-20 2022-07-20 Letter Susanmini [facility] 1.2.840.114 [id number] Univers 00:00:00 00:00:00 (Out) Jose ISAAC 350.1.13.10 it y of WOMEN'S 4.2.7.2.686 [facility] [id number] [facility] [address] 2022-07-15 2022-07-15 Emergency [facility] [id number] Univers 14:32:00 17:21:00 ESTEFANIA ity [facility] 2022-07-15 2022-07-15 Emergency [facility] 1.2.840.114 [id number] Univers 14:32:00 17:21:00 Estefania A [facility] 350.1.13.10 ity of [place] 4.2.7.2.686 [facility] [id number] [place] [address] [place] 2022-07-15 2022-07-15 Emergency [facility] [id number] Univers 14:32:00 17:21:00 [facility]-07-15 2022-07-15 Outpatient R JOSE COPPOLA [facility] B [id number] Univers 16:00:00 16:00:00 JOSE COPPOLA [facility] 2022-04-21 2022-04-21 Nurse Therapy, Clc Covid Infusion [facility] 1.2.840.114 [id number] Univers 13:30:00 14:30:00 Visit Roxy Thomas [facility] 350.1.13.10 ity of [place] 4.2.7.2.686 [facility] norman TOXEY [id number] [place] [id number] OFFICE BUILDING 2022-04-21 2022-04-21 Outpatient R LEONORA [facility] [id number] Univers 13:30:00 13:30:00 [facility] 2022-04-19 2022-04-19 Laboratory Only, Ang Db Test [facility] 1.2.8 40.114 [id number] Univers 11:45:00 11:45:00 Only Marlon Anurag HEALTH 350.1.13.10 ity of [place] 4.2.7.2.686 Surinder as KASSANDRA?BLEA [id number] [place] [address] MEDICAL OFFICE BUILDING 2022-04-192022-04-19 Outpatient R MARLON [facility] [id number] Univers 11:45:00 11:40:15 ANURAG jimenez [facility] 2022-04-18 2022-04-19 Emergency Clif ESCOBEDO [facility] ERT [id number] Univers 22:48:00 00:10:00 AMARI jimenez [facility] 2022-04-18 2022-04-19 Emergency Gregg [facility] 1.2.100.893 [id number] Univers 22:48:00 00:10:00 Amari BRIONES 350.1.13.10 ity of [place] 4.2.7.2.686 [facility] [id number] [address] 2020-09-06 2020-09-06 [facility] 1.2.840.114 [id number] 09:49:00 12:37:00 Karen Briones 350.1.13.10 [place] [address] [place] [address] [id number] [facility] 2020-09-06 2020-09-06 [facility] 1.2.840.114 [id number] Univers 09:49:00 12:37:00 Karen Briones 350.1.13.10 i ty of [place] 4.2.7.2.686 [facility] [id number] [address] Results Test Description Test Time Test Comments Results Result Comments Source POCT URINALYSIS W/O SPECIFIC GRAVITY 2022-08-31 21:39:00 Test Item Value Reference Range Interpretation Comme nts POCT PH U (test code = 3254) 5 mg/dl 5-8 POCT U LEUK EST (test code = 3263) 1+ Negative - Negative POCT U NIT (test code = 3262) Negative Negative - Negative POCT U PROT (test code = 3259) Negative Negative - Negative POCT U GLU (test code = 3256) Negative Negative - Negative POCT U KETONE (test code = 3258) Negative Negative - Negative POCT U BLD (test code = 3257) Trace Negative - Negative [facility]/O SPECIFIC [id number] 21:39:00 Test Item Value Reference Range Interpretation Comments POCT PH U (test code = 3254) 5 mg/dl 5-8 POCT U LEUK EST (test code = 1+ Negative - Negative 3263) POCT U NIT (test code = 3262) Negative Negative - Negative POCT U PROT (test code = 3259) Negative Negative - Negative POCT U GLU (test code = 3256) Negative Negative - Negative POCT U KETONE (test code = 3258) Negative Negative - Negative POCT U BLD (test code = 3257) Trace Negative - Negative [facility]ONINE2022-08-26 07:06:01 Test Item Value Reference Range Interpretation Comments T3 (test code = 6391405543) 144.0 ng/dL 97-170 Lab Interpretation (test code = Normal 73506-0) [facility] [id number] 04:21:08 Test Item Value Reference Range Interpretation Comments FREE T4 (test code = See_Comment [Autom ated message] [id number]) The system [employer] generated this result transmitted ref erence range: 0.78 - 2 .20 ng/dL:. The ref erence range was not u sed to interpret this result as normal/abnor mal. Lab Interpretation (test Normal code = 61863-5) [facility] HospitalSCR MAMM BILATERAL SUGEY CAD [id number] 16:28:53 - SCR MAMM BILATERAL SUGEY CAD DIGITALBILATERAL DIGITAL SCREENING MAMMOGRAM 3D/2D WITH CAD: 12/22/2018CLINICAL: Asymptomatic. Digital breast tomosynthesis was performed in addition to routine CC and MLOviews. Current mammographic images were evaluated by either a [employer] M-Vu or a [employer] ImageChecker CAD (computer aided detection system). No prior exams were available for comparison. There are scattered fibroglandular tissues in both breasts. No suspicious mass, architectural distortion, malignant type calcification, or lymph node abnormality detected. IMPRESSION: NEGATIVEThere is no mammographic evidence of malignancy. Resume annual screening mammography in one year. Lynette ramos/penrad:01/02/2019 16:28:53 Entry: cc - 01/03/2019 14:15:14Imaging Technologist: Kayla Calderon MM, [facility] Mammographyletter sent: BIRADS 1-2 Normal Mammogram BI-RADS: 1 Negative
[2023-08-10 21:12] LABS: Urine Bacteria None Seen /HPF (<20); Urine Bilirubin NEGATIVE (Negative); Urine Blood Negative (Negative); Urine Clarity Clear (Clear); Urine Color Light-Yellow (Yellow); Urine Glucose NEGATIVE (Negative); Urine Mucus Slight /HPF (None Seen); Urine Protein TRACE (Negative); Urine RBC <5 /HPF (None Seen); Urine Urobilinogen 1+ (Normal)
[2023-08-10] MEDS ORDERED: PROMETHAZINE INJ 25 MG/ML AMP ONE (21:38)
[2023-08-10] MEDS ORDERED: MORPHINE 4 MG/ML SYR ONE (21:38)
[2023-08-10] MEDS ORDERED: NA CHLORIDE 0.9% 1,000 ML ONE (21:39)
[2023-08-10 21:58] LABS: Absolute Lymphocytes (CBC) 1.9 K/uL (0.7-4.9); Lymphocytes % 27.9 % (15.3-44.8); MCV 81.1 fL (80-100); Platelets 245 thou/uL (152-406); RBC Red Blood Cell Count 5.18 M/uL (3.86-4.86)
[2023-08-10 22:05] LABS: Albumin 3.7 g/dL (3.4-5.0); Bilirubin Total 0.3 mg/dL (0.2-1.0); Potassium 4.1 mEq/L (3.5-5.1); Protein, Total 7.4 g/dL (6.4-8.2)
--- NOTE | 2023-08-10 23:50 | EDPHYS ---
Physician Documentation [facility] Name: Tabitha Gutierres Age: 53 yrs Sex: Female : 1970 Arrival Date: 08/10/2023 Time: 18:45 Bed 13 Private MD: Radha Collins H ED Physician Roque Robison HPI: 08/10 21:19 This 53 yrs old Female presents to ER via Ambulatory with complaints of Abdominal Pain, snw Back Pain. 21:19 The patient presents with abdominal pain in the epigastric area, in the upper abdomen, snw in the right upper quadrant. Onset: The symptoms/episode began/occurred acutely, 3 week(s) ago. The symptoms radiate to right back. Associated signs and symptoms: Pertinent positives: nausea. The symptoms are described as intermittent. Severity of pain: At its worst the pain was moderate severe in the emergency department the pain has improved. It is unknown whether or not the patient has had similar symptoms in the past. The patient has not recently seen a physician. 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 - Social history:: Smoking status: Patient denies any tobacco usage or history of. ROS: 21:18 Constitutional: Negative for fever, chills, and weight loss, Eyes: Negative for injury, snw pain, redness, and discharge, ENT: Negative for injury, pain, and discharge, Neck: Negative for injury, pain, and swelling, Cardiovascular: Negative for chest pain, palpitations, and edema. 21:18 : Negative for injury, bleeding, discharge, and swelling, MS/Extremity: Negative for injury and deformity, Skin: Negative for injury, rash, and discoloration, Neuro: Negative for headache, weakness, numbness, tingling, and seizure, Psych: Negative for depression, anxiety, suicide ideation, homicidal ideation, and hallucinations. 21:18 Respiratory: Positive for cough. 21:18 Abdomen/GI: Positive for abdominal pain, nausea. 21:18 Back: Positive for pain at rest, pain with movement, radiated pain. Exam: 21:17 Constitutional: This is a well developed, well nourished patient who is awake, alert, snw and in no acute distress. Head/Face: Normocephalic, atraumatic. Eyes: Pupils equal round and reactive to light, extra-ocular motions intact. Lids and lashes normal. Conjunctiva and sclera are non-icteric and not injected. Cornea within normal limits. Periorbital areas with no swelling, redness, or edema. ENT: Nares patent. No nasal discharge, no septal abnormalities noted. Tympanic membranes are normal and external auditory canals are clear. Oropharynx with no redness, swelling, or masses, exudates, or evidence of obstruction, uvula midline. Mucous membranes moist. Neck: Trachea midline, no thyromegaly or masses palpated, and no cervical lymphadenopathy. Supple, full range of motion without nuchal rigidity, or vertebral point tenderness. No Meningismus. Chest/axilla: Normal chest wall appearance and motion. Nontender with no deformity. No lesions are appreciated. Cardiovascular: Regular rate and rhythm with a normal S1 and S2. No gallops, murmurs, or rubs. Normal PMI, no JVD. No pulse deficits. Respiratory: Lungs have equal breath sounds bilaterally, clear to auscultation and percussion. No rales, rhonchi or wheezes noted. No increased work of breathing, no retractions or nasal flaring. Skin: Warm, dry with normal turgor. Normal color with no rashes, no lesions, and no evidence of cellulitis. MS/ Extremity: Pulses equal, no cyanosis. Neurovascular intact. Full, normal range of motion. Neuro: Awake and alert, GCS 15, oriented to person, place, time, and situation. Cranial nerves II-XII grossly intact. Motor strength 5/5 in all extremities. Sensory grossly intact. Cerebellar exam normal. Normal gait. Psych: Awake, alert, with orientation to person, place and time. Behavior, mood, and affect are within normal limits. 21:17 Abdomen/GI: Inspection: abdomen appears normal, obese Bowel sounds: normal, Palpation: mild abdominal tenderness, moderate abdominal tenderness, in the posterior aspect of right lateral abdomen, right upper quadrant and right lower quadrant. 21:17 Back: pain, that is moderate, of the low back area, right mid back and right low back, CVA tenderness, is absent, muscle spasm, is not present. Vital Signs: 18:52 BP 151 / 89; Pulse 80; Resp 18; Temp 97.7; Pulse Ox 97% ; Weight 122.47 kg; Pain 8/10; ap3 21:42 BP 168 / 102; Pulse 69; Resp 16; Pulse Ox 98% ; bp 18:52 Pain Scale: Adult ap3 MDM: 20:17 Patient medically screened. obinna 21:19 Differential diagnosis: appendicitis, cholecystitis, Cholelithiasis, gastritis, snw non-specific abd pain, Ureterolithiasis. Data reviewed: vital signs, nurses notes. 22:38 ED course: just returned from CT via stretcher. snw 08/10 19:20 Order name: Urine W/Microscopic (UAM); Complete Time: 21:16 snw 08/10 21:17 Order name: CBC with Diff; Complete Time: 22:30 snw 08/10 21:17 Order name: CMP; Complete Time: 22:07 snw 08/10 21:17 Order name: Lipase; Complete Time: 22:07 snw 08/10 21:17 Order name: CT Abd/Pelvis - IV Contrast Only snw 08/10 21:17 Order name: IV Saline Lock; Complete Time: 21:41 snw 08/10 21:17 Order name: Labs collected and sent; Complete Time: 21:41 snw Administered Medications: 21:30 Drug: NS 0.9% IV 1000 ml Route: IV; Rate: 1 bolus; Site: right antecubital; bp 08/11 00:14 Follow up: IV Status: Completed infusion; IV Intake: 1000ml bp 08/10 21:30 Drug: morphine IVP or IV 4 mg Route: IVP; Infused Over: 4 mins; Site: right antecubital;bp 08/11 00:14 Follow up: Response: No adverse reaction bp 08/10 21:30 Drug: Promethazine IVP 12.5 mg Route: IVP; Site: right antecubital; bp 08/11 00:14 Follow up: Response: No adverse reaction bp 00:00 Drug: morphine IVP or IV 4 mg Route: IVP; Infused Over: 4 mins; Site: right antecubital;bp 00:14 Follow up: Response: No adverse reaction bp Disposition Summary: 08/10/23 23:49 Discharge Ordered Location: Home snw Condition: Stable snw Diagnosis - Low back pain snw - Upper abdominal pain, unspecified snw Followup: snw - With: Emergency Department - When: As needed - Reason: Worsening of condition Followup: snw - With: Radha Collins DO - When: 2 - 3 days - Reason: Recheck today's complaints, Continuance of care, Re-evaluation by your physician Discharge Instructions: - Discharge Summary Sheet snw - Abdominal Pain, Adult snw - Acute Back Pain, Adult snw - Food Choices for Gastroesophageal Reflux Disease, Adult snw - Gas and Gas Pains, Pediatric snw Forms: - Work release form snw - Medication Reconciliation Form snw - Thank You Letter snw - Antibiotic Education snw - Prescription Opioid Use snw - Patient Portal Instructions snw - Leadership Thank You Letter snw Prescriptions: - Pepcid 20 mg Oral Tablet - take 1 tablet by ORAL route once daily; 20 tablet; Refills: 0, Product snw Selection Permitted - dicyclomine 20 mg Oral Tablet - take 1 tablet by ORAL route 3 times per day; 21 tablet; Refills: 0, Product snw Selection Permitted Signatures: Dispatcher [employer] EDMS Roque Robison MD MD cha Waters, Shelly, SMUDGER-C SMUDGER-Csnw Eladio Bhat, RN RN Merlyn Crouch RN RN ap3
--- NOTE | 2023-08-10 23:50 | ER ---
Nurse's Notes [facility] Name: Tabitha Gutierres Age: 53 yrs Sex: Female : 1970 Arrival Date: 08/10/2023 Time: 18:45 Bed 13 Private MD: Radha Collins H Diagnosis: Low back pain;Upper abdominal pain, unspecified Presentation: 08/10 18:50 Chief complaint: Patient states: she has been having abdominal pain for approx 3 days, ap3 and low back pain for a few weeks that comes with constipation. patient states it has made it hard to sleep on her stomach. patient reports her pain to be an 8/10 on the pain scale. Coronavirus screen: At this time, the client does not indicate any symptoms associated with coronavirus-19. Ebola Screen: No symptoms or risks identified at this time. Initial Sepsis Screen: Does the patient meet any 2 criteria? No. Patient's initial sepsis screen is negative. Does the patient have a suspected source of infection? No. Patient's initial sepsis screen is negative. Risk Assessment: Do you want to hurt yourself or someone else? Patient reports no desire to harm self or others. Onset of symptoms was August 07, 2023. 18:50 Method Of Arrival: Ambulatory ap3 18:50 Acuity: ESTELLA 3 ap3 Triage Assessment: 18:51 General: Appears in no apparent distress. Behavior is calm, cooperative, appropriate ap3 for age. Pain: Complains of pain in back and abdomen Pain began 2-3 days ago. Neuro: Level of Consciousness is awake, alert, obeys commands, Oriented to person, place, time, situation. Cardiovascular: Patient's skin is warm and dry. Respiratory: Airway is patent Respiratory effort is even, unlabored, Respiratory pattern is regular, symmetrical. GI: Reports lower abdominal pain, upper abdominal pain, nausea. 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 - Social history:: Smoking status: Patient denies any tobacco usage or history of. Screenin:52 [facility] ED Fall Risk Assessment (Adult) History of falling in the last 3 months, ap3 including since admission No falls in past 3 months (0 pts). Abuse screen: Denies threats or abuse. Nutritional screening: No deficits noted. Tuberculosis screening: No symptoms or risk factors identified. Assessment: 19:00 General: SEE TRIAGE NOTE. bp 21:41 Reassessment: No changes from previously documented assessment. Patient is alert, bp oriented x 3, equal unlabored respirations, skin warm/dry/pink. Vital Signs: 18:52 BP 151 / 89; Pulse 80; Resp 18; Temp 97.7; Pulse Ox 97% ; Weight 122.47 kg; Pain 8/10; ap3 21:42 BP 168 / 102; Pulse 69; Resp 16; Pulse Ox 98% ; bp 18:52 Pain Scale: Adult ap3 ED Course: 18:48 Patient arrived in ED. mr 18:48 Radha Collins DO is Private Physician. mr 18:51 Triage completed. ap3 18:52 Arm band placed on right wrist. ap3 19:20 Lori Mahan FNP-C is PHCP. snw 19:20 Roque Robison MD is Attending Physician. snw 20:53 Eladio Bhat, SANTIAGO is Primary Nurse. bp 20:58 Patient has correct armband on for positive identification. Bed in low position. Call bp light in reach. 21:41 Inserted saline lock: 20 gauge in right antecubital area, using aseptic technique. bp Blood collected. 22:49 CT Abd/Pelvis - IV Contrast Only In Process Unspecified. EDMS 23:49 Radha Collins DO is Referral Physician. snw 08/11 00:20 No provider procedures requiring assistance completed. IV discontinued, intact, bp bleeding controlled, No redness/swelling at site. Pressure dressing applied. Administered Medications: 08/10 21:30 Drug: NS 0.9% IV 1000 ml Route: IV; Rate: 1 bolus; Site: right antecubital; bp 08/11 00:14 Follow up: IV Status: Completed infusion; IV Intake: 1000ml bp 08/10 21:30 Drug: morphine IVP or IV 4 mg Route: IVP; Infused Over: 4 mins; Site: right antecubital;bp 08/11 00:14 Follow up: Response: No adverse reaction bp 08/10 21:30 Drug: Promethazine IVP 12.5 mg Route: IVP; Site: right antecubital; bp 08/11 00:14 Follow up: Response: No adverse reaction bp 00:00 Drug: morphine IVP or IV 4 mg Route: IVP; Infused Over: 4 mins; Site: right antecubital;bp 00:14 Follow up: Response: No adverse reaction bp Intake: 00:14 IV: 1000ml; Total: 1000ml. bp Outcome: 08/10 23:49 Discharge ordered by MD. house 08/11 00:20 Discharged to home ambulatory. bp Condition: stable Discharge instructions given to patient, Instructed on discharge instructions, follow up and referral plans. medication usage, Demonstrated understanding of instructions, follow-up care, medications, Prescriptions given X 2. 00:20 Patient left the ED. bp Signatures: Dispatcher [employer] EDMS Lori Mahan, MORTGAGE CLOSER-C MORTGAGE CLOSER-Csnw Jaquelin Hameed Brian, RN RN bp Merlyn Allison RN RN ap3
[2023-08-11] MEDS ORDERED: MORPHINE 4 MG/ML SYR ONE (00:23)
[2023-08-11 00:43] VITALS: TEMP 97.7
[2023-08-11 00:54] VITALS: BP 168/102; O2SAT 98
--- NOTE | 2023-08-11 09:55 | RAD REPORT ---
EXAM DESCRIPTION: CT - Abdomen Pelvis W Contrast - 08/11/2023 6:54 am CLINICAL HISTORY: ABD PAIN. COMPARISON: CT abdomen/pelvis from January 31, 2021. TECHNIQUE: CT of the abdomen and pelvis was performed following intravenous administration of iodina jalen contrast. Oral contrast was not administered. Axial, coronal, and sagittal soft tissue window rec onstructions were created and sent to PACS. This exam was performed according to our departmental dose-optimization program, which includes autom ated exposure control, adjustment of the mA and/or kV according to patient size and/or use of iterati ve reconstruction technique. FINDINGS: Thoracic: No significant abnormality. Hepatobiliary: No concerning hepatic lesion identified. The portal veins are patent. The gallbladder is unremarkable. No biliary ductal dilatation. Pancreas: Unremarkable. Spleen: Unremarkable. Gastrointestinal: No evidence of bowel obstruction or perienteric inflammation. The appendix is nonvi sualized, but there are no pericecal inflammatory changes. Small amount of fecal material in the colo n and rectum. Adrenals: No abnormality identified in either adrenal gland. Renal: No concerning parenchymal abnormality in either kidney. No hydronephrosis or urolithiasis. Bladder/Reproductive: Unremarkable appearance of the urinary bladder by CT technique. Unremarkable CT appearance of the uterus and ovaries. Vascular/Lymphatics: No lymphadenopathy identified by CT size criteria. Abdominal aorta is normal in caliber. Musculoskeletal: No concerning osseous lesion identified. Fluid / peritoneum: No significant free fluid. No free intraperitoneal air identified. IMPRESSION: No acute abnormality identified in the abdomen or pelvis by CT. Electronically signed by: Ebony Hidalgo MD 08/10/2023 11:03 PM CDT Due to temporary technical issues with the PACS/Fluency reporting system, reports are being signed by the in house radiologist without review as a courtesy to ensure prompt reporting. The interpreting r adiologist is fully responsible for the content of the report.
== END 2023-08-11 00:20 | disposition home or self-care (01) ==
LOC: ER 18:45
DX: M54.50 Low back pain, unspecified (principal); R10.10 Upper abdominal pain, unspecified
CPT/HCPCS: 36415; 74177; 80053; 81001; 83690; 85025; 96361; 96374; 96375; 99284; J2550; J7030; Q9967

== ENCOUNTER 2024-07-21 07:05 | Emergency (ER) | payer SELFPAY ==
--- OUTSIDE RECORDS SUMMARY | 2024-07-21 07:10 | XMS REPORT | Continuity of Care Document ---
Author Name Unknown Address [address] [facility] [address] [place] [address] [facility] [address] [facility] 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 Role Phone BRANDY CORDOVA Primary Care Physician Unavailab Addison Pineda Attending Clinician Unavailable CHRISTIAN DWOD Attending Clinician Unavailable NICK LAWSON Attending Clinician Unavailable RASHAAD PRINCE Attending Clinician Unavailab ILENE Barger Attending Clinician Unavailable CALIXTO LUCIO Attending Clinician Unavailable CONNER RANDALL Attending Clinician Unavailable LEXUS MIRANDA Attending Clinician Unavailable ROXY CHILDERS Attending Clinician Unavailable MD ZOE Attending Clinician Unavailab ADE Hammer Attending Clinician Unavailable LAB90 Attending Clinician Unavailable CHI GARNICA Attending Clinician Unavailable QUAN BARKLEY Attending Clinician UnaCASSANDRA Heredia Attending Clinician Unavailab IFRAH Baca Attending Clinician UnaZACK Ng Attending Clinician Unavailab TRAVIS Yo Attending Clinician Unavailable IZA ARZATE MEDICAL Attending Junior albert Unavailable JASON GOMES Attending Clinician Unavailable AZIZA HUGHES Attending Clinician Unavailable RADIOLOGY Attending Clinician Unavailable JOANNE COPPOLA Attending Clinician Unavaila ulises LEESTSCHLER, CHERYAL Attending Clinician Unavaila ulises [email or web address]_S Attending Clinician Unavaila Ludmila Ludwig MA Attending Clinician Unavailamada vega Lab, Ang - Db Attending Clinician Unavailable KEVIN FISCHER Attending Clinician Kevin Gross MD Attending Clinician [phone] Therapy, Clc Covid Infusion Attending Clinician Unavailable Josue Thomas MD Attending Clinician [phone] JOSUE THOMAS Attending Clinician Unavailable Only, Ang Db Test Attending Clinician UnavailMerlyn Alberto MD Attending Clinician [phone] MERLYN OSMAN Attending Clinician Unavailable WES ESCOBEDO Attending Clinician Unavailable Wes Escobedo APN Attending Clinician [phone] Karen Bruno Attending Clinician [phone] [email or web address]_S Admitting Clinician UnavailJOANNE Alonso Admitting Clinician UnavailKEVIN Sabillon Admitting Clinician UnavailWES Monzon Admitting Clinician Unavailable Payers Payer Name Policy Type Policy Number Effective Date Expirati on Date Source [facility] [id number] 2017 00:00:00 [facility] KB RODRIGESAY FOCUS 9 [id number] 2023 00:00:00 Problems Condition Name Condition Details Condition Category Status Onset Date Resolution Date Last Treatment Date Treating Clinician Comments Source Chronic low back pain with right-side d sciatica Chronic low back pain with right-side d sciatica Disease Active 05-22 00:00: 00 Iza sanders Elevated blood pressure reading with diagnosis of hypertensi on Elevated blood pressure reading with diagnosis of hypertensi on Disease Active 03-22 00:00: 00 Iza sanders Snoring Snoring Disease Active 03-22 00:00: 00 Iza sanders Class 3 severe obesity due to excess calories without serious comorbidit y with body mass index (BMI) of 50.0 to 59.9 in adult Class 3 severe obesity due to excess calories without serious comorbidit y with body mass index (BMI) of 50.0 to 59.9 in adult Disease Active 4-24 00:00: 00 Iza sanders Seasonal allergic rhinitis due to pollen Seasonal allergic rhinitis due to pollen Disease Active 4-24 00:00: 00 Iza sanders Multiple sclerosis (multi HCC) Multiple sclerosis (multi HCC) Disease Active 3-13 00:00: 00 Iza sanders Malodorous urine Malodorous urine Disease Active 2021-11 0-03 00:00: 00 [facility] Excessive bleeding in premenopau laura period Excessive bleeding in premenopau laura period Disease Active 07-20 00:00: 00 [facility] Pain pelvic Pain pelvic Disease Active 07-20 00:00: 00 [facility] Hirsutism Hirsutism Disease Active 07-20 00:00: 00 [facility] Well woman exam with routine gynecologi carmen exam Well woman exam with routine gynecologi carmen exam Disease Active 07-20 00:00: 00 [facility] Personal history of COVID-19 Personal history of COVID-19 Disease Active 07-20 00:00: 00 [facility] Personal history of diseases of the ms sys and conn tiss Personal history of diseases of the ms sys and conn tiss Disease Active 07-20 00:00: 00 [facility] examinatio n or test, negative result examinatio n or test, negative result Disease Active 07-20 00:00: 00 [facility] BMI 50.0-59.9, adult BMI 50.0-59.9, adult Disease Active 07-20 00:00: 00 [facility] Eye pain Eye pain Disease Active 2012-11 00:00: 00 [facility] Multiple sclerosis exacerbati on Multiple sclerosis exacerbati on Disease Active 2012-11 00:00: 00 [facility] 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 Disease Active 2012-11 00:00: 00 [facility] [id number] Mild intermitte nt asthma without complicati on Problem [facility] [id number] Mixed hyperlipid emia Problem [facility] [id number] Essential hypertensi on Problem [facility] [id number] Obesity, morbid, BMI 50 or higher Problem [facility] [id number] Mild episode of recurrent major depressive disorder Problem [facility] Allergies, Adverse Reactions, Alerts Allergy Name Allergy Type Status Severity Reaction(s) Onset Date Inactive Date Treating Clinician Comments Source Penicill ins Propensi ty to adverse reaction s Active Hives 01-19 00:00: 00 Iza Posadaa l Tamiflu Propensi ty to adverse reaction s Active Hallucinatio ns 01-19 00:00: 00 Other Reaction( s): Not available Iza Posadaa l Oseltami vir Propensi ty to adverse reaction s Active Hallucinatio ns 07-15 00:00: 00 [facility] OSELTAMI VIR DRUG INGREDI Active Hallucinates 07-15 00:00: 00 [facility] Penicill ins Propensi ty to adverse reaction s Active Anaphylaxis 07-15 00:00: 00 [facility] PENICILL INS Drug Class Active Anaphylaxis 07-15 00:00: 00 [facility] penicill amine penicill amine Active Unknown [facility] Social History Social Habit Start Date Stop Date Quantity Comments Source History of tobacco use Passive smoker Iza pollack - External Sexual orientation Hilario Mandujano - External Alcoholic beverage intake 2024-07-06 00:00:00 2024-07-06 00:00:00 .14 /d Iza Mandujano - External Tobacco use and exposure 2024-05-22 00:00:00 2024-05-22 00:00:00 Smokeless tobacco non-user Iza Mandujano - External History of Social function 2024-03-22 00:00:00 2024-03-22 00:00:00 Iza Mandujano - External Education 2024-03-22 00:00:00 2024-03-22 00:00:00 16 Iza susannavalerie - External Alcohol Comment 2024-03-22 00:00:00 2024-03-22 00:00:00 occasionally Iza Cruz Exposure to SARS-CoV-2 (event) 2022-08-21 00:00:00 2022-08-31 16:05:00 Not sure [facility] Alcohol intake 2022-08-31 00:00:00 2022-08-31 00:00:00 Current non-drinker of alcohol (finding) [facility] Sex assigned at 1970 00:00:00 1970 00:00:00 Iza Mandujano - External Smoking Status Start Date Stop Date Source Never smoked tobacco Iza Mandujano - External Tobacco smoking consumption unknown Iza Mandujano - External Medications Ordered Medication Name Filled Medication Name Start Date Stop Date Current Medication? Ordering Clinician Indication Dosage Frequency Signature (SIG) Comments Components Source Celecoxib 100 MG oral Capsule 07-06 14:24: 26 07-06 00:00 :00 No [id number] 100mg Q.5D Take 1 capsule (100 mg total) by mouth 2 times daily. Iza sanders Albuterol HFA 108 (90 Base) MCG/ACT IN AERS 07-06 14:04: 14 Yes Albuterol Iza sanders Semaglutide -VANESSA-Brad ght Management 0.25 MG/0.5ML Subcutaneou s Solution Auto-inject or 07-06 14:04: 14 Yes .25mg Q1W Inject 0.25 mg into the skin once a week Starting dose 5 units. Iza sanders Cyanocobala min 500 MCG/0.1ML nasal Solution 07-06 14:04: 14 Yes 500ug Q1W Use 0.1 mL (500 mcg total) in one nostril once a week. Iza sanders Cholecalcif aye 125 MCG (5000 UT) oral Chewable Tablet 07-06 14:04: 14 Yes 1{tbl} Take 1 tablet by mouth every 24 hours. Iza sanders Naproxen 500 MG oral Tablet 07-06 00:00: 00 Yes [id number] 500mg Take 1 tablet (500 mg total) by mouth in the morning and 1 tablet (500 mg total) in the evening. Take with meals. Take with Meals, STOP IF UPSET STOMACH. Iza sanders methylPREDN ISolone (Medrol) 4 MG oral Tablet Therapy Pack 07-06 00:00: 00 Yes [id number] 1{cora} Take 1 cora by mouth See Admin Instructio ns Use as directed.. Iaz sanders Lisinopril 10 MG oral Tablet 07-05 10:53: 37 07-05 00:00 :00 No 10mg QD Take 1 tablet (10 mg total) by mouth daily. Iza sanders Albuterol HFA 108 (90 Base) MCG/ACT IN AERS 07-05 10:34: 33 Yes Albuterol Iza sanders Semaglutide -VANESSA-Brad ght Management 0.25 MG/0.5ML Subcutaneou s Solution Auto-inject or 07-05 10:34: 33 Yes .25mg Q1W Inject 0.25 mg into the skin once a week Starting dose 5 units. Iza sanders Cyanocobala min 500 MCG/0.1ML nasal Solution 07-05 10:34: 33 Yes 500ug Q1W Use 0.1 mL (500 mcg total) in one nostril once a week. Iza sanders Celecoxib 100 MG oral Capsule 07-05 10:34: 33 Yes [id number] 100mg Q.5D Take 1 capsule (100 mg total) by mouth 2 times daily. Iza sanders Cholecalcif aye 125 MCG (5000 UT) oral Chewable Tablet 07-05 10:34: 33 Yes 1{tbl} Take 1 tablet by mouth every 24 hours. Iza sanders Cyclobenzap rine HCl 10 MG oral Tablet 07-05 00:00: 00 Yes [id number] 10mg QD Take 1 tablet (10 mg total) by mouth daily as needed for muscle spasms. Iza sanders Ketorolac Tromethamin e 10 MG oral Tablet 06-27 00:00: 00 07-06 00:00 :00 No [id number] 10mg Q.25D Take 1 tablet (10 mg total) by mouth every 6 hours as needed for pain. Iza sanders Cyanocobala min (Vitamin B-12) 50 MCG oral Lozenge 06-19 00:00: 00 Yes Inject 1 mL by subcutaneo us route. Iza sanders Semaglutide 3 MG oral Tablet 06-19 00:00: 00 Yes 0.25mg SQ weekly (5 units) Iza sanders Ondansetron (ZOFRAN) 4 MG oral TABLET DISPERSIBLE 06-19 00:00: [address] 2 tablets twice a day by translingu al route for 10 days. Iza sanders Cyclobenzap rine HCl 10 MG oral Tablet 06-02 00:00: 00 07-05 00:00 :00 No [id number] 10mg QD Take 1 tablet (10 mg total) by mouth daily as needed for muscle spasms. Iza sanders Cholecalcif aye 125 MCG (5000 UT) oral Chewable Tablet 05-24 09:27: 45 05-24 00:00 :00 No 1{tbl} 1 tablet every 24 hours. Iza sanders Albuterol HFA 108 (90 Base) MCG/ACT IN AERS 05-24 09:07: 23 Yes Albuterol Iza sanders Celecoxib 100 MG oral Capsule 05-24 00:00: 00 Yes [id number] 100mg Q.5D Take 1 capsule (100 mg total) by mouth 2 times daily. Iza sanders Cyclobenzap rine HCl 10 MG oral Tablet 05-24 00:00: 00 Yes [id number] 10mg QD Take 1 tablet (10 mg total) by mouth daily as needed for muscle spasms. Iza sanders Vitamin D, Ergocalcife rol, 1.25 MG (00473 UT) oral Capsule 05-24 00:00: 00 Yes [id number] 54364M Q1W Take 1 capsule (50,000 units total) by mouth once a week. Iza sanders Cholecalcif aye 125 MCG (5000 UT) oral Chewable Tablet 05-22 14:29: 06 Yes 1{tbl} 1 tablet every 24 hours. Iza sanders Albuterol HFA 108 (90 Base) MCG/ACT IN AERS 05-22 14:29: 06 Yes Albuterol Iza sanders Cholecalcif aye 125 MCG (5000 UT) oral Chewable Tablet 03-22 13:48: 06 Yes 1{tbl} 1 tablet every 24 hours. Iza sanders Erythromyci n 2 % apply externally Gel 03-14 00:00: 00 03-22 00:00 :00 No [id number] 1{appli cation} Apply 1 Applicatio n topically 2 times daily. Iza sanders Fluconazole 150 MG oral Tablet 02-17 00:00: 00 03-22 00:00 :00 No 150mg Take 1 tablet (150 mg total) by mouth daily. Iza sanders Ciprofloxac in HCl (CIPRO) 500 MG oral Tablet 02-17 00:00: 00 03-14 00:00 :00 No [id number] 500mg Take 1 tablet (500 mg total) by mouth 2 times daily. Iza sanders Cetirizine (ZyrTEC Allergy) 10 MG oral Tablet 02-08 10:56: 58 02-08 00:00 :00 No 10mg Take 1 tablet (10 mg total) by mouth daily. Iza sanders Cyclobenzap rine HCl 10 MG oral Tablet 02-08 10:51: 26 02-08 00:00 :00 No every 24 hours. Iza sanders Cholecalcif aye 125 MCG (5000 UT) oral Chewable Tablet 02-08 10:38: 55 Yes 1{tbl} 1 tablet every 24 hours. Iza sanders Albuterol HFA 108 (90 Base) MCG/ACT IN AERS 02-08 10:38: 55 Yes Albuterol Iza sanders Gabapentin 100 MG oral Capsule 02-08 00:00: 00 Yes [id number] 100mg QD Take 1 capsule (100 mg total) by mouth daily as needed (numbness) . Iza sanders FLUTICASONE PROPIONATE, NASAL, 50 MCG/ACT nasal Suspension 02-08 00:00: 00 Yes [id number] 50ug QD Use 1 spray (50 mcg total) in each nostril daily. Iza sanders Montelukast (Singulair) 10 MG oral Tablet tablet 02-08 00:00: 00 Yes [id number] 10mg QD Take 1 tablet (10 mg total) by mouth nightly. Iza sanders Cyclobenzap rine HCl 10 MG oral Tablet 02-08 00:00: 00 05-24 00:00 :00 No [id number] 10mg QD Take 1 tablet (10 mg total) by mouth daily as needed for muscle spasms. Iza sanders Levocetiriz ine Dihydrochlo ride 5 MG oral Tablet 02-08 00:00: 00 03-14 00:00 :00 No [id number] 5mg Take 1 tablet (5 mg total) by mouth every day at 5:00 PM. Iza sanders Meloxicam 7.5 MG oral Tablet 02-06 07:45: 15 02-06 00:00 :00 No 1{tbl} 1 tablet (7.5 mg total) every 24 hours. Iza sanders guaiFENesin -Codeine 100-10 MG/5ML oral Syrup 01-31 00:00: 00 Yes [id number] 5mL Take 5 mL by mouth every 4 to 6 hours as needed for cough. Iza sanders methylPREDN ISolone 4 MG oral Tablet Therapy Pack 01-31 00:00: 00 Yes [id number] 1{cora} Take 1 cora by mouth See Admin Instructio ns Use as directed. Iza sanders Cholecalcif aye 125 MCG (5000 UT) oral Chewable Tablet 01-24 15:13: 03 Yes 1{tbl} 1 tablet every 24 hours. Iza sanders Cyclobenzap rine HCl 10 MG oral Tablet 01-24 15:13: 03 Yes every 24 hours. Iza sanders Meloxicam 7.5 MG oral Tablet 01-24 15:13: 03 Yes 1{tbl} 1 tablet (7.5 mg total) every 24 hours. Iza sanders Albuterol HFA 108 (90 Base) MCG/ACT IN AERS 01-24 15:13: 03 Yes Albuterol Iza sanders Albuterol HFA 108 (90 Base) MCG/ACT IN AERS 01-24 00:00: 00 05-22 00:00 :00 No [id number] 2{puff} Q.25D Inhale 2 puffs into the lungs every 6 hours as needed for wheezing. Iza sanders Azithromyci n 250 MG oral Tablet 01-24 00:00: 00 01-29 05:59 :00 No [id number] Take 2 tablets by mouth on day 1 then 1 tablet by mouth daily for 4 days thereafter .. Iza sanders Doxycycline Hyclate 100 MG oral Tablet 01-19 00:00: 00 02-06 00:00 :00 No [id number] 100mg Take 1 tablet (100 mg total) by mouth 2 times daily. Iza sanders Amoxicillin -Pot Clavulanate 875-125 MG oral Tablet 01-19 00:00: 00 01-19 00:00 :00 No [id number] 1{tbl} Take 1 tablet by mouth 2 times daily for 7 days. Iza sanders Pseudoeph-B romphen-DM 30-2-10 MG/5ML oral Syrup 2-16 00:00: 00 01-31 00:00 :00 No [id number] 5mL Q.25D Take 5 mL by mouth 4 times daily as needed. Iza sanders Chlorhexidi ne Gluconate 0.12 % mouth/throa t Solution 2- 00:00: 00 02-06 00:00 :00 No SWISH AND SPIT WITH 15 MLS BY MOUTH TWICE A DAY FOR 10 DAYS. Iza sanders Wegovy 0.25 MG/0.5ML Wegovy 0.25 MG/0.5ML 2023-0 1-10 00:00: 00 No .5{ml} Wegovy 0.25 MG/0.5ML Wegovy 0.25 MG/0.5ML Wegovy 0.25 MG/0.5ML 2023-0 1-10 00:00: 00 No .5{ml} Wegovy 0.25 MG/0.5ML Wegovy 0.25 MG/0.5ML Wegovy 0.25 MG/0.5ML 2023-0 1-10 00:00: 00 No .5{ml} Wegovy 0.25 MG/0.5ML Wegovy 0.25 MG/0.5ML Wegovy 0.25 MG/0.5ML 4-0 1-10 00:00: 00 No .5{ml} Wegovy 0.25 MG/0.5ML Wegovy 0.25 MG/0.5ML Wegovy 0.25 MG/0.5ML 4-0 1-10 00:00: 00 No .5{ml} Wegovy 0.25 MG/0.5ML Wegovy 0.25 MG/0.5ML Wegovy 0.25 MG/0.5ML 2024-0 1-10 00:00: 00 No .5{ml} Wegovy 0.25 MG/0.5ML Wegovy 0.25 MG/0.5ML Wegovy 0.25 MG/0.5ML 1- 00:00: 00 No .5{ml} Wegovy 0.25 MG/0.5ML Fluticasone Propionate 50 MCG/ACT Fluticasone Propionate 50 MCG/ACT 2022-11 2- 00:00: 00 No 1{spray _in_eac h_nostr il} QD Fluticason e Propionate 50 MCG/ACT Fluticasone Propionate 50 MCG/ACT Fluticasone Propionate 50 MCG/ACT 2022-11 2 00:00: 00 No 1{spray _in_eac h_nostr il} QD Fluticason e Propionate 50 MCG/ACT Fluticasone Propionate 50 MCG/ACT Fluticasone Propionate 50 MCG/ACT 2022-11 00:00: 00 No 1{spray _in_eac h_nostr il} QD Fluticason e Propionate 50 MCG/ACT Fluticasone Propionate 50 MCG/ACT Fluticasone Propionate 50 MCG/ACT 2022-11 00:00: 00 No 1{spray _in_eac h_nostr il} QD Fluticason e Propionate 50 MCG/ACT Fluticasone Propionate 50 MCG/ACT Fluticasone Propionate 50 MCG/ACT 2022-11 00:00: 00 No 1{spray _in_eac h_nostr il} QD Fluticason e Propionate 50 MCG/ACT Fluticasone Propionate 50 MCG/ACT Fluticasone Propionate 50 MCG/ACT 2022-11 00:00: 00 No 1{spray _in_eac h_nostr il} QD Fluticason e Propionate 50 MCG/ACT FLUTICASONE PROPIONATE, NASAL, 50 MCG/ACT nasal Suspension 2022-11 00:00: 00 02-08 00:00 :00 No every 24 hours. Iza sanders terconazole 80 mg vaginal suppository 2021-11 0 00:00: 00 09-28 04:59 :00 No [id number] 80mg Insert 1 Suppositor y into vagina at bedtime for 3 days. [facility] tranexamic acid 650 mg tablet 2021-11 0-03 00:00: 00 09-11 04:59 :00 No [id number] 1300mg Take 2 tablets by mouth in the morning and 2 tablets at noon and 2 tablets in the evening. Do all this for 10 days. [facility] tranexamic acid 650 mg tablet 08-10 00:00: 00 08-16 04:59 :00 No [id number] 1300mg Take 2 tablets by mouth in the morning and 2 tablets at noon and 2 tablets in the evening. Do all this for 5 days. [facility] ciprofloxac in HCl 500 mg tablet 07-15 00:00: 00 Yes [id number] 500mg Take 1 tablet by mouth in the morning and 1 tablet in the evening. [facility] benzonatate 100 mg capsule 04-19 00:00: 00 Yes [id number] 100mg Take 1 capsule by mouth 3 (three) times daily as needed for Cough. [facility] albuterol 90 mcg/actuati on inhaler 04-19 00:00: 00 Yes [id number] 2{puff} Inhale 2 Puffs every 4 (four) hours as needed for Wheezing or Shortness of Breath. [facility] nirmatrelvi r-ritonavir (PAXLOVID, EUA,) 150 mg x 2- 100 mg tablet 04-18 00:00: 00 Yes [id number] 3{tbl} Take 3 tablets by mouth 2 (two) times daily. [facility] dicyclomine 20 mg tablet 2019-11 00:00: 00 Yes [id number] 20mg Take 1 tablet by mouth 4 (four) times daily as needed for Abdominal pain. [facility] ondansetron (ZOFRAN ODT) 4 mg disintegrat ing tablet 2019-11 00:00: 00 Yes [id number] 4mg Take 1 tablet by mouth every 8 (eight) hours as needed for Nausea and Vomiting (N/V). [facility] cyclobenzap rine 10 mg tablet 12-24 00:00: 00 Yes [id number] 10mg Take 1 tablet by mouth 3 (three) times daily. [facility] acetaminoph en-codeine 300-30 mg tablet 12-24 00:00: 00 Yes [id number] 1/2 - 1 tab Every 4hrs as needed for pain or cough requiring narcotic [facility] Gabapentin 100 MG oral Capsule 2012-11 00:00: 00 02-08 00:00 :00 No 100mg 1 capsule (100 mg total) every 24 hours. Iza sanders Gabapentin 100 MG Gabapentin 100 MG No 1{capsu le} QD Gabapentin 100 MG Albuterol Albuterol No Albuterol Gabapentin 100 MG Gabapentin 100 MG No 1{capsu le} QD Gabapentin 100 MG Albuterol Albuterol No Albuterol Gabapentin 100 MG Gabapentin 100 MG No 1{capsu le} QD Gabapentin 100 MG Cyclobenzap rine HCl 10 MG Cyclobenzap rine HCl 10 MG No 1{table t_at_be dtime_a s_neede d} QD Cyclobenza radha HCl 10 MG Albuterol Albuterol No Albuterol Meloxicam 7.5 MG Meloxicam 7.5 MG No 1{table t} QD Meloxicam 7.5 MG Gabapentin 100 MG Gabapentin 100 MG No 1{capsu le} QD Gabapentin 100 MG Cyclobenzap rine HCl 10 MG Cyclobenzap rine HCl 10 MG No 1{table t_at_be dtime_a s_neede d} QD Cyclobenza radha HCl 10 MG Albuterol Albuterol No Albuterol Meloxicam 7.5 MG Meloxicam 7.5 MG No 1{table t} QD Meloxicam 7.5 MG Gabapentin 100 MG Gabapentin 100 MG No 1{capsu le} QD Gabapentin 100 MG Cyclobenzap rine HCl 10 MG Cyclobenzap rine HCl 10 MG No 1{table t_at_be dtime_a s_neede d} QD Cyclobenza radha HCl 10 MG Albuterol Albuterol No Albuterol Meloxicam 7.5 MG Meloxicam 7.5 MG No 1{table t} QD Meloxicam 7.5 MG Gabapentin 100 MG Gabapentin 100 MG No 1{capsu le} QD Gabapentin 100 MG Cyclobenzap rine HCl 10 MG Cyclobenzap rine HCl 10 MG No 1{table t_at_be dtime_a s_neede d} QD Cyclobenza radha HCl 10 MG Albuterol Albuterol No Albuterol Meloxicam 7.5 MG Meloxicam 7.5 MG No 1{table t} QD Meloxicam 7.5 MG Gabapentin 100 MG Gabapentin 100 MG No 1{capsu le} QD Gabapentin 100 MG Cyclobenzap rine HCl 10 MG Cyclobenzap rine HCl 10 MG No 1{table t_at_be dtime_a s_neede d} QD Cyclobenza radha HCl 10 MG Albuterol Albuterol No Albuterol Meloxicam 7.5 MG Meloxicam 7.5 MG No 1{table t} QD Meloxicam 7.5 MG Immunizations Ordered Immunization Name Filled Immunization Name Date Status Comments Source BEBTELOVIMAB 2022-04-21 00:00:00 Completed [facility]BTEL[facility] 2022-04-21 00:00:00 Completed [facility] BEBTELOVIMAB 2022-04-21 00:00:00 Completed [facility] BEBTELOVIMAB 2022-04-21 00:00:00 Completed [facility] BEBTELOVIMAB 2022-04-21 00:00:00 Completed [facility] BEBTELOVIMAB 2022-04-21 00:00:00 Completed [facility] BEBTELOVIMAB 2022-04-21 00:00:00 Completed [facility] BEBTELOVIMAB 2022-04-21 00:00:00 Completed [facility] BEBTELOVIMAB 2022-04-21 00:00:00 Completed [facility] Influenza Virus Vaccine 2014-10-24 00:00:00 Completed [facility] Influenza Virus Vaccine 2014-10-24 00:00:00 Completed [facility] Influenza Virus Vaccine 2014-10-24 00:00:00 Completed [facility] Influenza Virus Vaccine 2014-10-24 00:00:00 Completed [facility] Influenza Virus Vaccine 2014-10-24 00:00:00 Completed [facility] Influenza Virus Vaccine 2014-10-24 00:00:00 Completed [facility] Influenza Virus Vaccine 2014-10-24 00:00:00 Completed [facility] Influenza Virus Vaccine, Whole Virus Unknown Completed Iza Seybold - External Influenza, Injectable, Mdck, Quadrivalent With Preservative Unknown Completed Iza Seybold - External Influenza Virus Vaccine, Unspecified Formulation Unknown Completed Zia Seybold - External Influenza Virus Vaccine, Whole Virus Unknown Completed Iza Seybold - External Influenza, Injectable, Mdck, Quadrivalent With Preservative Unknown Completed Iza Seybold - External Influenza Virus Vaccine, Unspecified Formulation Unknown Completed Iza Seybold - External Influenza Virus Vaccine, Whole Virus Unknown Completed Iza Seybold - External Influenza, Injectable, Mdck, Quadrivalent With Preservative Unknown Completed Iza Seybold - External Influenza Virus Vaccine, Unspecified Formulation Unknown Completed Iza Seybold - External Influenza Virus Vaccine, Whole Virus Unknown Completed Iza Seybold - External Influenza, Injectable, Mdck, Quadrivalent With Preservative Unknown Completed Iza Seybold - External Influenza Virus Vaccine, Unspecified Formulation Unknown Completed Iza Seybold - External Influenza Virus Vaccine, Whole Virus Unknown Completed Iza Seybold - External Influenza, Injectable, Mdck, Quadrivalent With Preservative Unknown Completed Iza Seybold - External Influenza Virus Vaccine, Unspecified Formulation Unknown Completed Iza Seybold - External Influenza Virus Vaccine, Whole Virus Unknown Completed Iza Seybold - External Influenza, Injectable, Mdck, Quadrivalent With Preservative Unknown Completed Iza Seybold - External Influenza Virus Vaccine, Unspecified Formulation Unknown Completed Iza Seybold - External Influenza Virus Vaccine, Whole Virus Unknown Completed Iza Seybold - External Influenza, Injectable, Mdck, Quadrivalent With Preservative Unknown Completed Iza Seybold - External Influenza Virus Vaccine, Unspecified Formulation Unknown Completed Iza Seybold - External Influenza Virus Vaccine, Whole Virus Unknown Completed Iza Seybold - External Influenza, Injectable, Mdck, Quadrivalent With Preservative Unknown Completed Iza Seybold - External Influenza Virus Vaccine, Unspecified Formulation Unknown Completed Iza Seybold - External Influenza Virus Vaccine, Whole Virus Unknown Completed Iza Seybold - External Influenza, Injectable, Mdck, Quadrivalent With Preservative Unknown Completed Iza Seybold - External Influenza Virus Vaccine, Unspecified Formulation Unknown Completed Iza Seybold - External Influenza Virus Vaccine, Whole Virus Unknown Completed Iza Seybold - External Influenza, Injectable, Mdck, Quadrivalent With Preservative Unknown Completed Iza Seybold - External Influenza Virus Vaccine, Unspecified Formulation Unknown Completed Iza Seybold - External Influenza Virus Vaccine, Whole Virus Unknown Completed Iza Seybold - External Influenza, Injectable, Mdck, Quadrivalent With Preservative Unknown Completed Iza Seybold - External Influenza Virus Vaccine, Unspecified Formulation Unknown Completed Iza Seybold - External Vital Signs Vital Name Observation Time Observation Value Comments S ource Systolic blood pressure 2024-07-05 15:31:00 128 mm[Hg] Iza Seybo ld - External Diastolic blood pressure 2024-07-05 15:31:00 84 mm[Hg] Iza Seybo ld - External Heart rate 2024-07-05 15:31:00 86 /min Kelse y Seybold - External Body temperature 2024-07-05 15:31:00 36.28 Nola Iza Seybold - External Respiratory rate 2024-07-05 15:31:00 15 /min Iza Seybold - External Body height 2024-07-05 15:31:00 154.9 cm Kae ey Seybold - External Body weight 2024-07-05 15:31:00 124.286 kg Kae ey Seybold - External BMI 2024-07-05 15:31:00 51.77 kg/m2 Kae ey Seybold - External Systolic blood pressure 2024-05-24 14:02:00 134 mm[Hg] Iza Seybo ld - External Diastolic blood pressure 2024-05-24 14:02:00 90 mm[Hg] Iza Seybo ld - External Heart rate 2024-05-24 14:02:00 77 /min Kelse y Seybold - External Body temperature 2024-05-24 14:02:00 36.33 Nola Iza Seybold - External Respiratory rate 2024-05-24 14:02:00 15 /min Iza Seybold - External Body height 2024-05-24 14:02:00 154.9 cm Kae ey Seybold - External Body weight 2024-05-24 14:02:00 126.1 kg Kae ey Seybold - External BMI 2024-05-24 14:02:00 52.53 kg/m2 Kae ey Seybold - External Systolic blood pressure 2024-05-22 19:16:00 124 mm[Hg] Iza Seybo ld - External Diastolic blood pressure 2024-05-22 19:16:00 80 mm[Hg] Iza Seybo ld - External Heart rate 2024-05-22 19:16:00 88 /min Kelse y Seybold - External Body temperature 2024-05-22 19:16:00 36.17 Nola Iza Seybold - External Respiratory rate 2024-05-22 19:16:00 15 /min Iza Seybold - External Body height 2024-05-22 19:16:00 154.9 cm Kae ey Seybold - External Body weight 2024-05-22 19:16:00 126.1 kg Kae ey Seybold - External BMI 2024-05-22 19:16:00 52.53 kg/m2 Kae ey Seybold - External Systolic blood pressure 2024-03-22 19:10:00 140 mm[Hg] Iza Seybo ld - External Diastolic blood pressure 2024-03-22 19:10:00 85 mm[Hg] Iza Seybo ld - External Heart rate 2024-03-22 18:46:00 69 /min Kelse y Seybold - External Body temperature 2024-03-22 18:46:00 36.67 Nola Iza Seybold - External Respiratory rate 2024-03-22 18:46:00 15 /min Iza Seybold - External Body height 2024-03-22 18:46:00 154.9 cm Kae ey Seybold - External Body weight 2024-03-22 18:46:00 126.1 kg Kae ey Seybold - External BMI 2024-03-22 18:46:00 52.53 kg/m2 Kae ey Seybold - External Oxygen saturation in Arterial blood by Pulse oximetry 2024-03-22 18:46:00 100 /min Iza Seybo ld - External Systolic blood pressure 2024-02-09 16:00:00 130 mm[Hg] Iza Seybo ld - External Diastolic blood pressure 2024-02-09 16:00:00 70 mm[Hg] Iza Seybo ld - External Heart rate 2024-02-09 15:36:00 91 /min Terryse y Seybold - External Body temperature 2024-02-09 15:36:00 37.06 Nola Iza Seybold - External Respiratory rate 2024-02-09 15:36:00 16 /min Iza Seybold - External Body height 2024-02-09 15:36:00 154.9 cm Kae ey Seybold - External Body weight 2024-02-09 15:36:00 126.1 kg Kae ey Seybold - External BMI 2024-02-09 15:36:00 52.53 kg/m2 Kae ey Seybold - External Oxygen saturation in Arterial blood by Pulse oximetry 2024-02-09 15:36:00 98 /min Iza Seamanybo ld - External Systolic blood pressure 2024-01-24 21:00:00 132 mm[Hg] Iza Seybo ld - External Diastolic blood pressure 2024-01-24 21:00:00 84 mm[Hg] Iza Seamanybo ld - External Heart rate 2024-01-24 21:00:00 80 /min Terryse y Seybold - External Body temperature 2024-01-24 21:00:00 36.83 Nola Iza Seamanybold - External Respiratory rate 2024-01-24 21:00:00 18 /min Iza Seamanybold - External Body height 2024-01-24 21:00:00 154.9 cm Kae ey Seybold - External Body weight 2024-01-24 21:00:00 122.131 kg Kae ey Seybold - External BMI 2024-01-24 21:00:00 50.87 kg/m2 Kae ey Seybold - External Oxygen saturation in Arterial blood by Pulse oximetry 2024-01-24 21:00:00 98 /min Iza Seamanybo ld - External weight 2023-12-08 09:40:00 269.0 [lb_av] Co mmon [facility] temperature 2023-12-08 09:40:00 97.9 [degF] Com mon [facility] bmi 2023-12-08 09:40:00 52.53 kg/m2 Comm on [facility] oximetry 2023-12-08 09:40:00 97 % Commo n [facility] respiratory rate 2023-12-08 09:40:00 16 /min Common [facility] blood pressure systolic 2023-12-08 09:40:00 130 mm[Hg] Common [facility] blood pressure diastolic 2023-12-08 09:40:00 74 mm[Hg] Common [facility] height 2023-12-08 09:40:00 60 [in_i] Commo n [facility] height 2023-10-20 15:00:00 60 [in_i] Commo n [facility] weight 2023-10-20 15:00:00 278 [lb_av] Comm on [facility] temperature 2023-10-20 15:00:00 97.9 [degF] Com mon [facility] bmi 2023-10-20 15:00:00 54.29 kg/m2 Comm on [facility] oximetry 2023-10-20 15:00:00 97 % Commo n [facility] respiratory rate 2023-10-20 15:00:00 16 /min [facility] blood pressure systolic 2023-10-20 15:00:00 120 mm[Hg] Common [facility] blood pressure diastolic 2023-10-20 15:00:00 70 mm[Hg] [facility] Systolic blood pressure 2022-08-31 21:25:00 131 mm[Hg] [facility] Diastolic blood pressure 2022-08-31 21:25:00 85 mm[Hg] [facility] Heart rate 2022-08-31 21:25:00 84 /min [facility] Body temperature 2022-08-31 21:25:00 36.72 Nola [facility] Respiratory rate 2022-08-31 21:25:00 18 /min [facility] Body height 2022-08-31 21:25:00 154.9 cm [facility] Body weight 2022-08-31 21:25:00 122.925 kg [facility] BMI 2022-08-31 21:25:00 51.21 kg/m2 [facility] Procedures Procedure Date / Time Performed Performing Clinician Source POCT URINALYSIS W/O SPECIFIC GRAVITY 2022-08-31 00:00:00 Joanne Coppola [facility] FREE T4 2022-07-23 20:50:00 [facility] 2022-07-23 20:50:00 Jennifer Coppola [facility] EXTERNAL MAMMOGRAM 2018-12-22 14:00:00 Doctor Un assigned, [facility] Encounters Start Date/Time End Date/Time Encounter Type Admission Type Attending [facility] Care Facility Care Department Encounter ID Source 2024-02-03 15:34:00 Outpatient Addison Haji [facility] [id number] [facility] 2023-12-06 08:10:02 Outpatient Addison Haji [facility] [id number] [facility] 2023-11-08 14:54:01 Outpatient HajiAddison norman [facility] [id number] [facility] 2023-10-20 14:18:01 Outpatient Addison Haji [facility] [id number] [facility] 2021-09-26 22:02:[address] [facility] [id number] [facility] 2024-12-13 10:45:00 2024-12-13 10:45:00 Outpatient CHRISTIAN DOWD [id number] Iza Mandujano 2024-11-28 10:00:00 2024-11-28 10:00:00 Outpatient NICK LAWSON [id number] Iza Mandujano 2024-10-03 10:15:00 2024-10-03 10:15:00 Outpatient RASHAAD PRINCE [facility] [id number] [facility]-20 10:30:00 2024-07-20 10:30:00 Outpatient ANTHONYKJILENE [facility]ZA [facility]ORDANO [id number] [facility] 2024-07-18 00:00:00 2024-07-18 00:00:00 Outpatient CALIXTO LUCIO [id number] [facility] 2024-07-17 14:30:00 2024-07-17 14:30:00 Outpatient PRAKASH CONNER IZA GIORDANO [id number] [facility] 2024-07-12 11:00:00 2024-07-12 11:00:00 Outpatient LEXSU MIRANDA [id number] [facility] 2024-07-06 14:00:00 2024-07-06 14:00:00 Outpatient ROXY CHILDERS [id number] [facility] 2024-07-06 00:00:00 2024-07-06 00:00:00 Outpatient ROXY CHILDERS [id number] [facility] 2024-07-06 00:00:00 2024-07-06 00:00:00 Outpatient MD IZA ANDUJAR [id number] [facility] 2024-07-06 00:00:00 2024-07-06 00:00:00 Outpatient MD IZA ANDUJAR [id number] [facility] 2024-07-05 10:30:00 2024-07-05 10:30:00 Outpatient CALIXTO LUCIO [id number] [facility] 2024-07-03 08:00:00 2024-07-03 08:00:00 Outpatient ILENE SHERMAN [id number] Iza Seybold 2024-07-03 08:00:00 2024-07-03 08:00:00 Outpatient ILENE SHERMAN [id number] [facility] 2024-06-29 00:00:00 2024-06-29 00:00:00 Outpatient CALIXTO LUCIO IZA GIORDANO [id number] [facility] 2024-06-28 13:00:00 2024-06-28 13:00:00 Outpatient IZA GIORDANO [id number] [facility] 2024-06-27 00:00:00 2024-06-27 00:00:00 Outpatient CALIXTO LUCIO [facility] [id number] [facility]24-[facility] 00:00:00 2024-06-26 00:00:00 Outpatient CALIXTO LUCIO [facility] [id number] [facility] 2024-06-21 14:30:00 2024-06-21 14:30:00 Outpatient NOEMIADE Norman [facility]ZA [facility]ORDANO [id number] [facility] 2024-05-29 09:00:00 2024-05-29 09:00:[address] ILENE GIORDANO [id number] [facility] 2024-05-29 00:00:00 2024-05-29 00:00:00 Outpatient CALIXTO LUCIO [facility]ZA [facility]ORDANO [id number] [facility] 2024-05-24 17:05:00 2024-05-24 17:05:00 Outpatient IZA GIORDANO [id number] [facility] 2024-05-24 17:00:00 2024-05-24 17:00:00 Outpatient [facility]ZA [facility]ORDANO [id number] [facility] 2024-05-24 16:40:00 2024-05-24 16:40:00 Outpatient IZA GIORDANO [id number] [facility] 2024-05-24 09:00:00 2024-05-24 09:00:00 Outpatient CALIXTO LUCIO IZA GIORDANO [id number] [facility] 2024-05-23 00:00:00 2024-05-23 00:00:00 Outpatient IZA GIORDANO [id number] [facility] 2024-05-23 00:00:00 2024-05-23 00:00:00 Outpatient NAVEED CALIXTO IZA GIORDANO [id number] [facility] 2024-05-22 15:20:00 2024-05-22 15:20:00 Outpatient LABAzael IZA GIORDANO [id number] [facility] 2024-05-22 14:30:00 2024-05-22 14:30:00 Outpatient CALIXTO LUCIO IZA GIORDANO [id number] [facility] 2024-05-22 00:00:00 2024-05-22 00:00:00 Outpatient CALIXTO LUCIO IZA GIORDANO [id number] [facility] 2024-05-18 14:30:00 2024-05-18 14:30:00 Outpatient KIOWA TRIBECHI VINSON IZA GIORDANO [id number] [facility] 2024-05-18 12:00:00 2024-05-18 12:00:00 Outpatient QUAN BARKLEY [id number] [facility] 2024-05-15 16:30:00 2024-05-15 16:30:00 Outpatient ILENE SHERMAN [id number] [facility] 2024-03-27 09:30:00 2024-03-27 09:30:00 Outpatient [facility] [id number] [facility] 2024-03-22 14:00:00 2024-03-22 14:00:00 Outpatient ADE ESTEVEZ [id number] [facility] 2024-03-14 10:45:00 2024-03-14 10:45:00 Outpatient CASSANDRA YANG [id number] [facility] 2024-02-24 00:00:00 2024-02-24 00:00:00 Outpatient ZENAIDA ADE IZA GIORDANO [id number] Iza Seybold 2024-02-18 16:25:00 2024-02-18 16:25:00 Outpatient LAB90 IZA GIORDANO [id number] Iza Seybold 2024-02-18 13:30:00 2024-02-18 13:30:00 Outpatient IFRAH DUKE [id number] Iza Seybold 2024-02-18 00:00:00 2024-02-18 00:00:00 Outpatient PREZAADE Norman IZA GIORDANO [id number] Iza Seybold 2024-02-18 00:00:00 2024-02-18 00:00:00 Outpatient PREZAADE Norman IZA GIORDANO [id number] Iza Seybold 2024-02-18 00:00:00 2024-02-18 00:00:00 Outpatient SRIKANTHIFRAH IZA GIORDANO [id number] Iza Seybold 2024-02-09 10:30:00 2024-02-09 10:30:00 Outpatient PREZASADE IZA GIORDANO [id number] Iza Seybold 2024-02-02 13:30:00 2024-02-02 13:30:00 Outpatient REKHA ZACKKelli GIORDANO [id number] Iza Seybold 2024-02-01 15:30:00 2024-02-01 15:30:00 Outpatient ALISON TRAVIS IZA GIORDANO [id number] Iza Seybold 2024-02-01 00:00:00 2024-02-01 00:00:00 Outpatient IFRAH DUKE [id number] Iza Seybold 2024-02-01 00:00:00 2024-02-01 00:00:00 Outpatient , IZA GIORDANO [id number] Iza Seybold 2024-01-24 15:00:00 2024-01-24 15:00:00 Outpatient IFRAH DUKE [id number] Iza Seybold 2024-01-19 13:15:00 2024-01-19 13:15:00 Outpatient MIREYA JASONCORINE GIORDANO [id number] Iza Seybold 2024-01-19 00:00:00 2024-01-19 00:00:00 Outpatient GROUP, IZA GIORDANO [id number] Iza Seybold 2024-01-14 12:50:00 2024-01-14 12:50:00 Outpatient AZIZA HUGHES [id number] Iza Seybold 2024-01-06 00:00:00 2024-01-06 00:00:00 (TEL) STLMLC STLMLC [id number] [facility] 2023-12-15 00:00:00 2023-12-15 00:00:00 (TEL) STLMLC STLMLC [id number] [facility] 2023-12-08 00:00:00 2023-12-08 00:00:00 OFFICE VISIT ESTAB PT LEVEL 4 STLMLC STLMLC [id number] [facility] 2023-11-12 00:00:00 2023-11-12 00:00:00 Outpatient R RADIOLOGY [facility] [id number] [facility] 2023-11-08 00:00:00 2023-11-08 00:00:00 (TEL) STLMLC STLMLC [id number] [facility] 2023-11-08 00:00:00 2023-11-08 00:00:00 OFFICE VISIT ESTAB PT LEVEL 3 STLMLC STLMLC [id number] [facility] 2023-10-25 00:00:00 2023-10-25 00:00:00 (TEL) STLMLC STLMLC [id number] [facility] 2023-10-20 00:00:00 2023-10-20 00:00:00 OFFICE VISIT NEW PT LEVEL 4 STLMLC STLMLC [id number] [facility] 2023-10-04 10:00:00 2023-10-04 10:00:00 Outpatient R JOANNE COPPOLA [facility]ERY[facility] [id number] [facility] 2023-09-25 00:00:00 2023-09-25 00:00:00 Outpatient GC_GCBZW_Ka khadar_S [facility] [id number] [facility] 2023-08-31 14:30:00 2023-08-31 14:30:00 Outpatient R JOANNE COPPOLA [facility]ERY[facility] [id number] [facility] 2022-09-24 00:00:00 2022-09-24 00:00:00 Case Management Joanne Coppola [facility] 1.2.840.114 350.1.13.10 4.2.7.2.686 [id number] [facility] 2022-09-24 00:00:00 2022-09-24 00:00:[address] [facility] 1.2.840.114 350.1.13.10 4.2.7.2.686 [id number] [facility] 2022-09-18 14:16:33 2022-09-18 23:59:00 Outpatient R ABDONSALLIESALLIE MÁRQUEZISHAAN [facility] [id number] [facility] 2022-09-18 14:16:33 2022-09-18 23:59:00 Hospital Encounter NanciepetronaJoanne morse YAMILET [facility] 1.2.840.114 350.1.13.10 4.2.7.2.686 [id number] [facility] 2022-08-31 16:30:00 2022-08-31 16:48:52 Outpatient R JOANNE COPPOLA [facility]ERY[facility] [id number] [facility] 2022-08-31 16:30:00 2022-08-31 16:48:52 Office Visit Joanne Coppola [facility] 1.2.840.114 350.1.13.10 4.2.7.2.686 [id number] [facility] 2022-08-24 13:30:00 2022-08-24 13:30:00 Outpatient R JOANNE COPPOLA CHERYAL [facility] [id number] [facility] 2022-08-21 13:30:00 2022-08-21 13:30:00 Outpatient R JOANNE COPPOLATSPETRONAEUSEBIO [facility] [id number] [facility] 2022-08-11 13:45:00 2022-08-11 13:45:00 Outpatient R YULIETJOANNE YEAGEREVAN [facility] [id number] [facility] 2022-08-10 00:00:00 2022-08-10 00:00:00 [facility] 1.0.114 350.1.13.10 4.2.7.2.686 [id number] [facility] 2022-08-07 00:00:00 2022-08-07 00:00:00 Outpatient R ABDONSALLIEISHAAN [facility] [id number] [facility] 2022-08-04 00:00:00 2022-08-04 00:00:00 Pre Visit Outreach Ludmila [facility] 1..114 350.1.13.10 4.2.7.2.686 [id number] [facility] 2022-07-30 00:00:00 2022-07-30 00:00:00 Telephone Yulietbayron [facility] 1..114 350.1.13.10 4.2.7.2.686 [id number] 134 [id number] [facility] 2022-07-23 15:45:00 2022-07-23 16:20:32 Kiln Pusher Visit Lab, Geovany - Siddhartha Coppola [facility] KASS[facility]DRA[facility] 1..114 350.1.13.10 4.2.7.2.686 [id number] [facility] 2022-07-23 15:45:00 2022-07-23 15:45:00 Outpatient R ABDON, CHERISHAAN COPPOLA [facility] [id number] [facility] 2022-07-22 00:00:00 2022-07-22 00:00:00 Telephone Abdon [facility] 1.2.840.114 350.1.13.10 4.2.7.2.686 [id number] [facility] 2022-07-21 00:00:00 2022-07-21 00:00:00 Case Management Abdon [facility] 1.2.840.114 350.1.13.10 4.2.7.2.686 [id number] [facility] 2022-07-20 12:30:00 2022-07-20 12:45:00 Kiln Pusher Visit Lab, Geovany Carl Abdon [facility] Sheldon?[facility] 1..840.114 350.1.13.10 4.2.7.2.686 [id number] [facility] 2022-07-20 10:45:00 2022-07-20 12:03:48 Outpatient R JOANNE COPPOL[facility] [id number] [facility] 2022-07-20 10:45:00 2022-07-20 12:03:48 Office Visit Joanne Coppola [facility] 1.2.840.114 350.1.13.10 4.2.7.2.686 [id number] [facility] 2022-07-20 10:45:00 2022-07-20 12:03:48 Outpatient R JOANNE COPPOLA [facility] [id number] [facility] 2022-07-20 00:00:00 2022-07-20 00:00:00 Letter (Out) Susaneusebio [facility] 1.2.840.114 350.1.13.10 4.2.7.2.686 [id number] [facility] 2022-07-15 14:32:00 2022-07-15 17:21:00 Emergency X KEVIN FISCHER [facility] [id number] [facility] 2022-07-15 14:32:00 2022-07-15 17:21:00 Emergency BehClaire hernandesram [facility] 1.840.114 350.1.13.10 4.2.7.2.686 [id number] [facility] 2022-07-15 14:32:00 2022-07-15 17:21:00 Emergency X KEVIN [facility]ER [facility] [id number] [facility] 2022-07-15 16:00:00 2022-07-15 16:00:00 Outpatient JOANNE DWYER [facility]ERY[facility] [id number] [facility] 2022-04-21 13:30:00 2022-04-21 14:30:00 Nurse Visit Therapy, Clc CovJosue Beltrán [facility] 1..840.114 350.1.13.10 4.2.7.2.686 [id number] [facility] 2022-04-21 13:30:00 2022-04-21 13:30:[address]RIGAN [facility] [id number] [facility] 2022-04-19 11:45:00 2022-04-19 11:45:00 Laboratory Only Only, Ang [place] [facility]ULISESKelli [facility] 1..840.114 350.1.13.10 4.2.7.2.686 [id number] [facility] 2022-04-19 11:45:00 2022-04-19 11:40:[address] PA[address] [facility] [id number] [facility] 2022-04-18 22:48:00 2022-04-19 00:10:00 Emergency WES MENDEZ [facility] [id number] [facility] 2022-04-18 22:48:00 2022-04-19 00:10:00 Emergency Wes Escobedo [facility] 1.2.840.114 350.1.13.10 4.2.7.2.686 [id number] [facility] 2020-09-06 09:49:00 2020-09-06 12:37:00 Emergency Rosi Salazaranne [facility] 1.2.840.114 350.1.13.10 4.2.7.2.686 [id number] [facility] 2020-09-06 09:49:00 2020-09-06 12:37:00 Emergency Rosi Salazaranne [facility] 1.2.840.114 350.1.13.10 4.2.7.2.686 [id number] Results Test Description Test Time Test Comments Results Result Co mments Source HEMOGLOBIN [id number] 00:00:00* Test Item Value Reference Range Interpretation Comme nts HEMOGLOBIN A1c (test code = 4548-4) 5.2 % See_Comment [Automated [facility] ge] The system which generated this result transmitted reference range: 4.2-5.6 %. The reference range was not used to interpret this result as normal/abnormal. LIPID [id number] 00:00:00* Test Item Value Reference Range Interpretation Comme nts CALC LDL CHOL (test code = 00037-6) 134 MG/DL See_Comment H [Automated [facility] [employer]] The system which generated this result transmitted reference range: <100 MG/DL. The reference range was not used to interpret this result as normal/abnormal. CHOLESTEROL (test code = 2093-3) 217 MG/DL See_Comment H [Automated [employer] ge] The system which generated this result transmitted reference range: <200 MG/DL. The reference range was not used to interpret this result as normal/abnormal. HDL CHOLESTEROL (test code = 2085-9) 57 MG/DL See_Comment [Automated [employer] ge] The system which generated this result transmitted reference range: >39 MG/DL. The reference range was not used to interpret this result as normal/abnormal. RISK RATIO LDL/HDL (test code = 87966-2) 2.35 RATIO See_Comment [Automated message] The system which generated this result transmitted reference range: <3.22 RATIO. The reference range was not used to interpret this result as normal/abnormal. TRIGLYCERIDES (test code = 2571-8) 140 MG/DL See_Comment [Automated [facility] [employer]] The system which generated this result transmitted reference range: <150 MG/DL. The reference range was not used to interpret this result as normal/abnormal. ALBUMIN/CREATININE RATIO, RANDOM [id number] 00:00:00* Test Item Value Reference Range Interpretation Comme nts ALBUMIN, URINE, RANDOM (test code = 25866-7) <0.2 MG/DL NOT ESTAB MG/DL CALC ALBUMIN/CREAT, RND (test code = 79155-0) <3 MG/G See_Comment [Automated [facility] [employer]] The system which generated this result transmitted reference range: <30 MG/G. The reference range was not used to interpret this result as normal/abnormal. CREATININE, URINE, CONC. (test code = 2161-8) 61.1 MG/DL NOT ESTAB MG/DL COMPREHENSIVE METABOLIC [id number] 00:00:00* Test Item Value Reference Range Interpretation Comme nts ALBUMIN (test code = 1751-7) 4.4 G/DL See_Comment [Automated [facility]] The system which generated this result transmitted reference range: 3.5-5.2 G/DL. The reference range was not used to interpret this result as normal/abnormal. ALKALINE PHOSPHATASE (test code = 6768-6) 95 U/L See_Comment [Automated message] The system which generated this result transmitted reference range: 40-130 U/L. The reference range was not used to interpret this result as normal/abnormal. BILIRUBIN, TOTAL (test code = 1975-2) 0.2 MG/DL See_Comment [Automated message] The system which generated this result transmitted reference range: <=1.2 MG/DL. The reference range was not used to interpret this result as normal/abnormal. BUN (test code = 3094-0) 11 MG/DL See_Comment [Automated messa ge] The system which generated this result transmitted reference range: 6-20 MG/DL. The reference range was not used to interpret this result as normal/abnormal. CALCIUM (test code = 81029-7) 9.7 MG/DL See_Comment [Automated messa ge] The system which generated this result transmitted reference range: 8.5-10.5 MG/DL. The reference range was not used to interpret this result as normal/abnormal. CALC A/G RATIO (test code = 1759-0) 1.7 RATIO See_Comment [Automated messa ge] The system which generated this result transmitted reference range: 1.0-2.6 RATIO. The reference range was not used to interpret this result as normal/abnormal. CALC BUN/CREAT (test code = 3097-3) 14 RATIO See_Comment [Automated messa ge] The system which generated this result transmitted reference range: 6-28 RATIO. The reference range was not used to interpret this result as normal/abnormal. CALC GLOBULIN (test code = 04110-3) 2.6 G/DL See_Comment [Automated messa ge] The system which generated this result transmitted reference range: 1.9-3.7 G/DL. The reference range was not used to interpret this result as normal/abnormal. CARBON DIOXIDE (test code = 1963-8) 29 MEQ/L See_Comment [Automated messa ge] The system which generated this result transmitted reference range: 19-31 MEQ/L. The reference range was not used to interpret this result as normal/abnormal. CHLORIDE (test code = 2075-0) 102 MEQ/L See_Comment [Automated messa ge] The system which generated this result transmitted reference range: 95-107 MEQ/L. The reference range was not used to interpret this result as normal/abnormal. CREATININE (test code = 2160-0) 0.77 MG/DL See_Comment [Automated messa ge] The system which generated this result transmitted reference range: 0.60-1.30 MG/DL. The reference range was not used to interpret this result as normal/abnormal. eGFR (2020 CKD-EPI) (test code = 74632-0) 93 ML/MIN/1.73 See_Comment [Automated messa ge] The system which generated this result transmitted reference range: >60 ML/MIN/1.73. The reference range was not used to interpret this result as normal/abnormal. GLUCOSE (test code = 1558-6) 95 MG/DL See_Comment [Automated messa ge] The system which generated this result transmitted reference range: 70-99 MG/DL. The reference range was not used to interpret this result as normal/abnormal. POTASSIUM (test code = 2823-3) 4.5 MEQ/L See_Comment [Automated messa ge] The system which generated this result transmitted reference range: 3.5-5.4 MEQ/L. The reference range was not used to interpret this result as normal/abnormal. PROTEIN, TOTAL (test code = 2885-2) 7.0 G/DL See_Comment [Automated messa ge] The system which generated this result transmitted reference range: 6.1-8.3 G/DL. The reference range was not used to interpret this result as normal/abnormal. AST (test code = 1920-8) 17 U/L See_Comment [Automated messa ge] The system which generated this result transmitted reference range: 9-40 U/L. The reference range was not used to interpret this result as normal/abnormal. ALT (test code = 1742-6) 21 U/L See_Comment [Automated messa ge] The system which generated this result transmitted reference range: 5-40 U/L. The reference range was not used to interpret this result as normal/abnormal. SODIUM (test code = 2951-2) 140 MEQ/L See_Comment [Automated messa ge] The system which generated this result transmitted reference range: 133-146 MEQ/L. The reference range was not used to interpret this result as normal/abnormal. CULTURE, [id number] 00:00:00* Test Item Value Reference Range Interpretation Comme nts CULTURE, URINE (test code = 630-4) SPECIMEN NUMBER: [id number] POCT URINALYSIS W/O SPECIFIC [id number] 21:39:00* Test Item Value Reference Range Interpretation Comme nts POCT PH U (test code = 3254) 5 mg/dl 5-8 POCT U LEUK EST (test code = 3263) 1+ Negative - Negative POCT U NIT (test code = 3262) Negative Negative - Negati ve POCT U PROT (test code = 3259) Negative Negative - Negat hugo POCT U GLU (test code = 3256) Negative Negative - Negati ve POCT U KETONE (test code = 3258) Negative Negative - Neg ative POCT U BLD (test code = 3257) Trace Negative - Negati ve [facility] SPECIFIC [id number] 21:39:00* Test Item Value Reference Range Interpretation Comme nts POCT PH U (test code = 3254) 5 mg/dl 5-8 POCT U LEUK EST (test code = 3263) 1+ Negative - Negative POCT U NIT (test code = 3262) Negative Negative - Negati ve POCT U PROT (test code = 3259) Negative Negative - Negat hugo POCT U GLU (test code = 3256) Negative Negative - Negati ve POCT U KETONE (test code = 3258) Negative Negative - Neg ative POCT U BLD (test code = 3257) Trace Negative - Negati ve [facility]2022-08-26 07:06:01* Test Item Value Reference Range Interpretation Comme nts T3 (test code = 9060266413) 144.0 ng/dL 97-170 Lab Interpretation (test cod e = 16477-4) Normal [facility] [id number] 04:21:08* Test Item Value Reference Range Interpretation Comme nts FREE T4 (test code = 7624595271) See_Comment [Automated messa ge] The system which generated this result transmitted reference range: 0.78 - 2.20 ng/dL:. The reference range was not used to interpret this result as normal/abnormal. Lab Interpretation (test code = 93920-1) Normal [facility] MAMM BILATERAL SUGEY CAD [id number] 16:28:53- SCR MAMM BILATERAL SUGEY CAD DIGITALBILATERAL DIGITAL SCREENING MAMMOGRAM 3D/2D WITH CAD: 12/22/2018CLINICAL: Asymptomatic. Digital breast tomosynthesis was performed in addition to routine CC and MLO views. Current mammographic images were evaluated by either a [employer] M-Vu or a [employer] ImageChecker CAD (computer aided detection system). No prior exams were available for comparison. There are scattered fibroglandular tissues in both breasts. No suspicious mass, architectural distortion, malignant type calcification, or lymph node abnormality detected. IMPRESSION: NEGATIVEThere is no mammographic evidence of malignancy. Resume annual screening mammography in one year. Lynette ramos/farrahrad:01/02/2019 16:28:53 Entry: - 01/03/2019 14:15:14Imaging Technologist: Kayla Calderon MM, [facility] Mammographyletter sent: BIRADS 1-2 Normal Mammogram BI-RADS: 1 Negative Notes Date/Time Note Provider Source 2024-07-06 14:04:30 Chief Complaint Patient presents with Hip Problem Nilton Arechiga 54 year old female c/o lower back pain with bilateral hip pain, patient sts pain radiates down her legs to above the knee. [phone] (spooner) Odilon Cisneros [facility] [place][NOTE 2] Odilon Cisneros [facility] 2024-07-05 10:35:36 Chief Complaint Patient presents with Follow-up Follow up on Semaglutide. She states the day after her last shot, her blood pressure went to 156/100. Anai Dunham MA II [facility] 2024-05-24 09:07:24 Chief Complaint Patient presents with Back Pain Mid low back pain for about a year that comes and goes. Gets painful and cannot bend over. Anai Dunham MA II [facility] 2024-05-22 14:29:09 Chief Complaint Patient presents with Physical Patient is fasting. Anai Dunham MA II [facility] 2024-01-24 15:13:14 Chief Complaint Patient presents with New Patient Establish Care Thick mucous sometimes its green sometimes its clear. Throat sore due to drainage Started having trouble after dental work Maddie Jamil LVN [facility]
[2024-07-21 07:40] LABS: Absolute Eosinophils 0.1 K/uL (0-0.5); Absolute Lymphocytes (CBC) 1.1 K/uL (0.7-4.9); Absolute Monocytes 0.4 K/uL (0.1-1.3); Absolute Neutrophil 2.2 K/uL (1.8-8.0); Basophils % 0.6 % (0-1.3); Eosinophils % 3.6 % (0-4.4); Hematocrit 44.4 % (36.0-45.0); Hemoglobin 14.7 g/dL (12.0-15.0); Lymphocytes % 28.3 % (15.3-44.8); MCH 27.9 pg (27.0-35.0); MCHC 33.1 g/dL (32.0-36.0); MCV 84.3 fL (80-100); MPV 8.9 fL (7.6-11.3); Monocytes % 9.6 % (3.3-12.3); Neutrophils % 57.9 % (41.7-73.7); Platelets 227 thou/uL (152-406); RBC Red Blood Cell Count 5.27 M/uL (3.86-4.86); Red Cell Distribution Width 14.6 % (12.1-15.2)
--- NOTE | 2024-07-21 07:50 | RAD REPORT ---
EXAM DESCRIPTION: Kiara Single View07/21/2024 7:35 am CLINICAL HISTORY: Hypertension and dizziness COMPARISON: 2020 FINDINGS: The lungs appear clear of acute infiltrate. The heart is normal size IMPRESSION: No acute abnormalities displayed
--- NOTE | 2024-07-21 07:53 | RAD REPORT ---
EXAM DESCRIPTION: CT - Head Brain Wo Cont - 07/21/2024 7:40 am CLINICAL HISTORY: Dizziness COMPARISON: 2019 TECHNIQUE: Computed axial tomography of the head was obtained. IV contrast was not requested. All CT scans are performed using dose optimization technique as appropriate and may include automated exposure control or mA/KV adjustment according to patient size. FINDINGS: An intracranial bleed is not seen The ventricles are normal in caliber No significant hypodense areas within the brain visualized No extra-axial fluid collection is noted. Fluid within the sinuses/ mastoids is not seen IMPRESSION: No acute intracranial abnormality is seen If patient's symptoms persist MRI of the brain would be recommended
[2024-07-21 08:12] LABS: Anion Gap 6.7 mEq/L (5.0-15.0); Potassium 3.7 mEq/L (3.5-5.1); Troponin High Sensitivity 20.6 pg/mL (<58.9)
--- NOTE | 2024-07-21 09:24 | ER ---
Nurse's Notes [facility] Name: Tabitha Gutierres Age: 54 yrs Sex: Female : 1970 Arrival Date: 07/21/2024 Time: 07:05 Bed 14 Private MD: Guy Culver Diagnosis: Essential (primary) hypertension Presentation: 07/21 07:26 Chief complaint: Patient states: Multiple high blood pressure readings that started rs5 this morning, reports recently being placed on weight loss medication that may have affected her blood pressure. Coronavirus screen: At this time, the client does not indicate any symptoms associated with coronavirus-19. Ebola Screen: No symptoms or risks identified at this time. Initial Sepsis Screen: Does the patient meet any 2 criteria? No. Patient's initial sepsis screen is negative. Does the patient have a suspected source of infection? No. Patient's initial sepsis screen is negative. Risk Assessment: Do you want to hurt yourself or someone else? Patient reports no desire to harm self or others. Onset of symptoms was July 21, 2024. 07:26 Method Of Arrival: Ambulatory rs5 07:26 Acuity: ESTELLA 3 rs5 Historical: - Allergies: 07:27 PENICILLINS; rs5 07:27 Tamiflu; rs5 - PMHx: 07:27 Multiple Sclerosis; rs5 - PSHx: 07:27 Tubal ligation (Multiple Sclerosis); tubal reversal (Multiple Sclerosis); rs5 - Immunization history:: Adult Immunizations up to date. - Infectious Disease History:: Denies. - Social history:: Smoking status: Patient denies any tobacco usage or history of. - Family history:: not pertinent. - Hospitalizations: : No recent hospitalization is reported. Screenin:15 [facility] ED Fall Risk Assessment (Adult) History of falling in the last 3 months, rs5 including since admission No falls in past 3 months (0 pts) Confusion or Disorientation No (0 pts) Intoxicated or Sedated No (0 pts) Impaired Gait No (0 pts) Mobility Assist Device Used No (0 pt) Altered Elimination No (0 pt) Score/Fall Risk Level 0 - 2 = Low Risk Oriented to surroundings, Maintained a safe environment. Abuse screen: Denies threats or abuse. Nutritional screening: No deficits noted. Tuberculosis screening: No symptoms or risk factors identified. Assessment: 07:15 General: Appears in no apparent distress. uncomfortable, Behavior is calm, cooperative. rs5 Pain: Denies pain. Neuro: Level of Consciousness is awake, alert, obeys commands, Oriented to person, place, time, situation, Reports dizziness. Cardiovascular: Patient's skin is warm and dry. Respiratory: Airway is patent Respiratory effort is even, unlabored, Respiratory pattern is regular, symmetrical. GI: Abdomen is round non-distended, Abd is soft and non tender X 4 quads. : No signs and/or symptoms were reported regarding the genitourinary system. EENT: No signs and/or symptoms were reported regarding the EENT system. Derm: Skin is intact, Skin is pink, warm \T\ dry. Musculoskeletal: Range of motion: intact in all extremities. 08:20 Reassessment: Patient and/or family updated on plan of care and expected duration. Pain rs5 level reassessed. Patient is alert, oriented x 3, equal unlabored respirations, skin warm/dry/pink. Cardiovascular: Denies chest pain. 08:33 Reassessment: No changes from previously documented assessment. rs5 Vital Signs: 07:26 BP 163 / 83; Pulse 70; Resp 18; Temp 97.8(O); Pulse Ox 98% ; rs5 08:58 BP 143 / 79; Pulse 73; Resp 18; Pulse Ox 99% on R/A; rs5 09:20 BP 135 / 82; Pulse 70; Resp 17; Pulse Ox 98% on R/A; rs5 ED Course: 07:08 Patient arrived in ED. gm2 07:08 Raúl Ricardo MD is Attending Physician. rn 07:08 Guy Culver DO is Private Physician. gm2 07:15 Geoffrey Nuno, SANTIAGO is Primary Nurse. rs5 07:15 Patient has correct armband on for positive identification. Placed in gown. Bed in low rs5 position. Call light in reach. Side rails up X2. 07:15 No provider procedures requiring assistance completed. rs5 07:27 Triage completed. rs5 07:30 Inserted saline lock: 20 gauge in right antecubital area, using aseptic technique. rs5 Blood collected. Flushed with 10 mL NS. 07:37 XRAY Chest (1 view) In Process Unspecified. EDMS 07:41 CT Head Brain wo Cont In Process Unspecified. EDMS 08:54 EKG done, by pest control service technician. reviewed by Raúl Ricardo MD. oh1 09:40 IV discontinued, intact, bleeding controlled, No redness/swelling at site. Pressure rs5 dressing applied. Administered Medications: No medications were administered Medication: 08:09 VIS not applicable for this client. rs5 Outcome: 09:24 Discharge ordered by MD. rn 09:40 Discharged to home ambulatory, rs5 09:40 Condition: stable rs5 09:40 Discharge instructions given to patient, family, Instructed on discharge instructions, follow up and referral plans. Demonstrated understanding of instructions, follow-up care, 09:45 Patient left the ED. rs5 Signatures: Dispatcher [employer] EDMS Raúl Ricardo MD MD rn Espinosa, Orlando oe Sotelo, Ricky RN RN Duyen [facility] Kirsty Martinez oh1 Corrections: (The following items were deleted from the chart) 07:29 07:26 Chief complaint: Patient states: Multiple high blood pressure readings that rs5 started this morning rs5 09:05 08:54 EKG done, by pest control service technician. reviewed by Raúl Ricardo MD oe oh1
--- NOTE | 2024-07-21 09:24 | EDPHYS ---
Physician Documentation [facility] Name: Tabitha Gutierres Age: 54 yrs Sex: Female : 1970 Arrival Date: 07/21/2024 Time: 07:05 Bed 14 Private MD: Guy Culver ED Physician Raúl Ricardo HPI: 07/21 08:12 This 54 yrs old Female presents to ER via Ambulatory with complaints of High Blood rn Pressure. 08:12 The patient has elevated blood pressure and discovered this at home. Onset: The rn symptoms/episode began/occurred at an unknown time. Modifying factors:. Severity of symptoms: At its worst the blood pressure was moderate, in the emergency department the blood pressure is unchanged. The patient has experienced similar episodes in the past. Patient reports has been having high blood pressure for some time now, was getting semaglutide injections as well as lipo shots which she thinks made her blood pressure rise even more. Patient reports woke up and noticed redness to the left eye which prompted her to check her blood pressure. Patient reports blood pressure was 160/100. Reports mild dizziness and flushing sensation but no focal neurological deficits. No vision changes. No speech deficits. Positive for mild headache. No neck stiffness. Is not on blood pressure medication. Is being tracked in terms of blood pressure with her PCP.. Historical: - Allergies: 07:27 PENICILLINS; rs5 07:27 Tamiflu; rs5 - PMHx: 07:27 Multiple Sclerosis; rs5 - PSHx: 07:27 Tubal ligation (Multiple Sclerosis); tubal reversal (Multiple Sclerosis); rs5 - Immunization history:: Adult Immunizations up to date. - Infectious Disease History:: Denies. - Social history:: Smoking status: Patient denies any tobacco usage or history of. - Family history:: not pertinent. - Hospitalizations: : No recent hospitalization is reported. ROS: 08:12 Constitutional: Negative for fever, chills, and weight loss, Eyes: Negative for injury, rn pain, redness, and discharge, Neck: Negative for injury, pain, and swelling, Cardiovascular: Negative for chest pain, palpitations, and edema, Respiratory: Negative for shortness of breath, cough, wheezing, and pleuritic chest pain, Abdomen/GI: Negative for abdominal pain, nausea, vomiting, diarrhea, and constipation, Back: Negative for injury and pain, MS/Extremity: Negative for injury and deformity, Skin: Negative for injury, rash, and discoloration, Neuro: Negative for weakness, numbness, tingling, and seizure, Exam: 08:12 Constitutional: This is a well developed, well nourished patient who is awake, alert, rn and in no acute distress. Eyes: Pupils equal round and reactive to light, extra-ocular motions intact. Small subconjunctival hemorrhage medial left eye Neck: No Meningismus. Cardiovascular: Regular rate and rhythm. No pulse deficits. Respiratory: No increased work of breathing, no retractions or nasal flaring. Abdomen/GI: Soft, non-tender MS/ Extremity: Pulses equal, no cyanosis. Neuro: Awake and alert, GCS 15, oriented to person, place, time, and situation. Cranial nerves II-XII grossly intact. Motor strength 5/5 in all extremities. Sensory grossly intact. Cerebellar exam normal. Normal gait. 10:13 ECG was reviewed by the Attending Physician. rn Vital Signs: 07:26 BP 163 / 83; Pulse 70; Resp 18; Temp 97.8(O); Pulse Ox 98% ; rs5 08:58 BP 143 / 79; Pulse 73; Resp 18; Pulse Ox 99% on R/A; rs5 09:20 BP 135 / 82; Pulse 70; Resp 17; Pulse Ox 98% on R/A; rs5 MDM: 07:08 Patient medically screened. rn 09:23 Differential diagnosis: hypertensive crisis, Malignant HTN. Data reviewed: vital signs, rn nurses notes, lab test result(s), EKG, radiologic studies, CT scan, and as a result, I will discharge patient. Care significantly affected by the following chronic conditions: Hypertension. Counseling: I had a detailed discussion with the patient and/or guardian regarding the historical points, exam findings, and any diagnostic results supporting the discharge/admit diagnosis, lab results, radiology results, the need for outpatient follow up, to return to the emergency department if symptoms worsen or persist or if there are any questions or concerns that arise at home. Response to treatment: the patient's symptoms have markedly improved after treatment. ED course: BP improved to 143/79 without medication. Labs and imaging negative for acute abnormality. Will discharge home with PCP follow-up and continued blood pressure reading measurements.. 07/21 07:24 Order name: Basic Metabolic Panel; Complete Time: 09:03 rn 07/21 07:24 Order name: CBC with Diff; Complete Time: 09:03 rn 07/21 07:24 Order name: NT PRO-BNP; Complete Time: 09:03 rn 07/21 07:24 Order name: Troponin HS; Complete Time: 09:03 rn 07/21 07:24 Order name: XRAY Chest (1 view); Complete Time: 09:03 rn 07/21 07:24 Order name: CT Head Brain wo Cont; Complete Time: 09:03 rn 07/21 07:24 Order name: Cardiac monitoring; Complete Time: 08:13 rn 07/21 07:24 Order name: EKG - Nurse/Tech; Complete Time: 08:13 rn 07/21 07:24 Order name: IV Saline Lock; Complete Time: 08:13 rn 07/21 07:24 Order name: Labs collected and sent; Complete Time: 08:13 rn 07/21 07:24 Order name: O2 Per Protocol; Complete Time: 08:13 rn 07/21 07:24 Order name: O2 Sat Monitoring; Complete Time: 08:13 rn EC:13 Rate is 59 beats/min. Rhythm is regular. QRS Varney is Normal. IN interval is normal. QRS rn interval is normal. QT interval is normal. No Q waves. T waves are Normal. No ST changes noted. Clinical impression: Sinus bradycardia. Interpreted by me. Reviewed by me. Administered Medications: No medications were administered Disposition Summary: 07/21/24 09:24 Discharge Ordered Notes: Location: Home rn Problem: new rn Symptoms: have improved rn Condition: Stable rn Diagnosis - Essential (primary) hypertension rn Followup: rn - With: Private Physician - When: As needed - Reason: Recheck today's complaints, Re-evaluation by your physician Discharge Instructions: - Discharge Summary Sheet rn - Hypertension, Adult rn - Heart Disease director of maternity services - Managing Your Hypertension rn Forms: - Medication Reconciliation Form rn - Antibiotic external grinder tender - Prescription Opioid Use rn - Patient Portal Instructions rn - Leadership Thank You Letter rn - Work release form rs5 - Family Work Release rs5 Signatures: Dispatcher [employer] Raúl Brown MD MD rn Sotelo, Ricky, RN RN rs5 Corrections: (The following items were deleted from the chart) 07:25 07:25 BASIC METABOLIC PANEL+C.LAB.BRZ ordered. EDMS EDMS 07:25 07:25 CBC+H.LAB.BRZ ordered. EDMS EDMS 07: 07:25 PROBNP+C.LAB.BRZ ordered. EDMS EDMS 07: 07:25 Troponin High Sensitivity+C.LAB.BRZ ordered. EDMS EDMS 07:25 07:25 Chest Single View+RAD.RAD.BRZ ordered. EDMS EDMS 07: 07:25 Head Brain Wo Cont+CT.RAD.BRZ ordered. EDMS EDMS
[2024-07-21 10:04] VITALS: TEMP 97.8
[2024-07-21 10:10] VITALS: BP 143/79; O2SAT 99
--- NOTE | 2024-07-21 13:27 | EKG ---
Test Date: 2024-07-21 Test Time: 08:09:05 Upkeep Mechanic: KAYE MEASUREMENT RESULTS: Intervals: Rate: 59 LA: 140 QRSD: 80 QT: 432 QTc: 427 Wayne: P: 40 LA: 140 QRS: 52 T: 26 INTERPRETIVE STATEMENTS: Sinus bradycardia Low voltage QRS Borderline ECG Compared to ECG 02/10/2021 10:58:13 Low QRS voltage now present Sinus rhythm no longer present Electronically Signed On 07-21-24 13:26:08 CDT by Guillermo Bruno
== END 2024-07-21 09:45 | disposition home or self-care (01) ==
LOC: ER 07:05
DX: I10 Essential (primary) hypertension (principal)
CPT/HCPCS: 36415; 70450; 71045; 80048; 83880; 84484; 85025; 93005; 99284